=== PATIENT | female | born 1950 | race Two or more races ===

== ENCOUNTER 2017-12-13 15:05 | Emergency (ER) | payer OTHER ==
--- NOTE | 2017-12-13 15:14 | PDOC ---
Rapid Medical Evaluation Time Seen by Provider: 12/13/17 15:12 Medical Evaluation: Allergies Allergy/AdvReac Type Severity Reaction Status Date / Time codeine AdvReac Mild Vomiting Verified 06/30/16 15:41 I have performed a brief in-person evaluation of this patient. The patient presents with a chief complaint of: painful area to right arm. Patient is a diabetic. Daughter states she's had this abscess, which she states started with an insect bite, on and off for 1 year Pertinent physical exam findings: 0.5cm raised lesion to underside of right distal arm, not fluctuant without surrounding erythema/warmth/streaking. Area is very TTP. Not the appearance of a typical abscess I have ordered the following: basic labs The patient will proceed to the ED for further evaluation. Discharge Disposition - Diagnosis Painful skin lesion - Referrals - Patient Instructions - Post Discharge Activity
[2017-12-13 15:17] VITALS: BP 158/89; PULSE 109; TEMP 97.9; BMI 49.5
[2017-12-13] MEDS ORDERED: ACETAMINOPHEN 325 MG TABLET (FP) PO ONE (16:03)
[2017-12-13 16:06] LABS: BASO % 0.5 % (0-2.0); EOS % 7.1 % (0-4.5); HEMATOCRIT 37.4 % (32.4-45.2); HEMOGLOBIN 12.5 GM/dL (10.7-15.3); LYMPH % 20.1 % (8-40); MCH 26.1 pg (25.7-33.7); MCHC 33.4 g/dl (32.0-36.0); MEAN CELL VOLUME 78.1 fl (80-96); MEAN PLT VOLUME 7.5 fl (7.5-11.1); MONO % 5.2 % (3.8-10.2); NEUT % 67.1 % (42.8-82.8); PLATELET COUNT 287 K/MM3 (134-434); RBC 4.79 M/mm3 (3.60-5.2); WHITE BLOOD COUNT 11.8 K/mm3 (4.0-10.0)
[2017-12-13 16:39] LABS: ANION GAP 6 (8-16); BILIRUBIN,TOTAL 0.3 mg/dL (0.2-1.0); BLOOD UREA NITROGEN 15 mg/dL (7-18); CALCIUM 8.9 mg/dL (8.5-10.1); CHLORIDE 103 mmol/L (98-107); CO2 29 mmol/L (21-32); CREATININE 0.8 mg/dL (0.55-1.02); GLUCOSE,RANDOM 276 mg/dL (74-106); POTASSIUM 4.2 mmol/L (3.5-5.1); SGOT/AST 15 U/L (15-37); SGPT/ALT 15 U/L (12-78); SODIUM 138 mmol/L (136-145); TOT PROT 7.4 g/dl (6.4-8.2)
[2017-12-13 16:40] LABS: ALK PHOS 134 U/L (45-117)
--- NOTE | 2017-12-13 17:30 | PDOC ---
History of Present Illness - General Chief Complaint: Abscess Boil Stated Complaint: ABSCESS/ RT ARM PAIN Time Seen by Provider: 12/13/17 15:12 - History of Present Illness Initial Comments: 12/13/17 18:09 The patient is a 67 year old female with a history of HTN, HLD, DM, who presents for evaluation of right elbow pain. The patient reports a history of a sebaceous cyst that was worked up in 2012 with multiple US and CT scanning and eventually drainage. The patient states that the cyst has been growing over the past year with worsening pain over the past few days prompting her presentation to the ED for evaluation. The patient otherwise denies fevers, chills, SOB, chest pain, abdominal pain, nausea, vomiting, or changes with urination or bowel movements. Past History - Past Medical History Allergies/Adverse Reactions: Allergies Allergy/AdvReac Type Severity Reaction Status Date / Time codeine AdvReac Mild Vomiting Verified 12/13/17 15:12 Home Medications: Ambulatory Orders Alendronate Na [Fosamax (Weekly)] 70 mg PO Q7D #0 tablet 03/01/13 Acetaminophen [Tactinal] 500 mg PO Q6H 01/17/16 Bisoprolol/Hydrochlorothiazide [Bisoprolol-Hctz 10-6.25 mg Tab] 1 each PO DAILY 01/17/16 Fluticasone/Salmeterol [Advair 250-50 Diskus] 1 each IH DAILY 01/17/16 Glimepiride [Amaryl -] 4 mg PO DAILY@0700 01/17/16 Metformin HCl 750 mg PO DAILY 01/17/16 Insulin Glargine,Hum.rec.anlog [Edi Solwinnie] 30 unit SQ DAILY 06/30/16 Sitagliptin Phosphate [Januvia] 100 mg PO DAILY 06/30/16 Albuterol Sulfate 0.042% [Ventolin 0.042TRENGTH) -] 1 amp NEB Q3H PRN 12/13/17 Albuterol Sulfate Inhaler - [Ventolin Hfa Inhaler -] 1 - 2 inh PO Q4H PRN Esomeprazole Magnesium [Nexium 24Hr] 40 mg PO DAILY 12/13/17 Liraglutide [Victoza 3-Chaim] 1.8 mg SQ DAILY 12/13/17 Naproxen [Naprosyn -] 250 mg PO BID #14 tablet 12/13/17 Asthma: Yes COPD: Yes Diabetes: Yes GI Disorders: Yes (gerd) HTN: Yes Hypercholesterolemia: Yes Other medical history: op - Surgical History Abdominal Surgery: Yes (Hernia repair) Appendectomy: Yes Orthopedic Surgery: Yes (Back Sx) - Immunization History Td Vaccination: Yes - Suicide/Smoking/Psychosocial Hx Smoking Status: No Smoking History: Never smoked Years of Tobacco Use: 0 Have you smoked in the past 12 months: No Number of Cigarettes Smoked Daily: 0 Cigars Per Day: 0 Hx Alcohol Use: No Drug/Substance Use Hx: No Substance Use Type: None Hx Substance Use Treatment: No Review of Systems - Review of Systems Comments:: 12/13/17 18:13 Constitutional: No fevers, chills, fatigue, malaise HEENT: No Rhinorrhea, nasal congestion, visual changes Cardiovascular: No chest pain, syncope, palpitations, lightheadedness Respiratory: No Cough, SOB, Hemoptysis, Gastrointestinal: No Abdominal pain, Nausea, Vomiting, Constipation, Diarrhea, Melena Genitourinary: No Dysuria, Frequency, Urgency, Hesitancy, Hematuria, Flank pain Musculoskeletal: Right Elbow Cyst Pain. No Myalgia, arthralgia Skin: No rashes, itching, bruising, pallor Neurologic: No Headache, Dizziness, Numbness, Weakness, or Tingling Psychiatric: No Hallucinations. No SI or HI *Physical Exam - Vital Signs Last Vital Signs Temp Pulse Resp BP Pulse Ox 97.9 F 109 H 18 158/89 100 12/13/17 15:12 12/13/17 15:12 12/13/17 15:12 12/13/17 15:12 12/13/17 15:12 - Physical Exam Comments: 12/13/17 18:14 General Appearance: Nourished. No Apparent Distress HEENT: EOMI, YULIET. No Pharyngeal Erythema, Tonsillar Exudate, Tonsillar Erythema Neck: No Cervical Lymphadenopathy Respiratory/Chest: Lungs Clear, Normal Breath Sounds. No Crackles, Rales, Rhonchi, Wheezing Cardiovascular: Regular Rhythm, Regular Rate. No Murmur, Gallops, Rubs Gastrointestinal/Abdominal: Normal Bowel Sounds, Soft. No Guarding, Rebound, Tenderness Musculoskeletal: No CVA Tenderness Extremity: 1cm subaceous cyst tender to touch without fluctulance, erythema or warmth. Normal Capillary Refill Integumentary: Normal Color, Dry, Warm Neurologic: Fully Oriented, Alert, Normal Mood/Affect, Normal Response, ED Treatment Course - LABORATORY CBC & Chemistry Diagram: 12/13/17 16:00 12/13/17 16:00 - ADDITIONAL ORDERS Additional order review: Laboratory Results 12/13/17 16:00 Sodium 138 Potassium 4.2 Chloride 103 Carbon Dioxide 29 Anion Gap 6 L BUN 15 Creatinine 0.8 Creat Clearance w eGFR > 60 Random Glucose 276 H Calcium 8.9 Total Bilirubin 0.3 AST 15 ALT 15 Alkaline Phosphatase 134 H Total Protein 7.4 Albumin 3.0 L 12/13/17 16:00 RBC 4.79 MCV 78.1 L MCHC 33.4 RDW 15.0 MPV 7.5 Neutrophils % 67.1 Lymphocytes % 20.1 D Monocytes % 5.2 Eosinophils % 7.1 H Basophils % 0.5 - Medications Given in the ED: ED Medications Discontinued Medications Generic Name Dose Route Start Last Admin Trade Name Freq PRN Reason Stop Dose Admin Acetaminophen 650 mg 12/13/17 16:03 12/13/17 16:05 Tylenol - PO 12/13/17 16:04 650 mg ONCE ONE Administration Medical Decision Making - Medical Decision Making 12/13/17 18:15 The patient is a 67 year old female with a history of HTN, HLD, DM, who presents for evaluation of right elbow pain. Given the patient's symptoms, it is likely the patient's symptoms are due to a sebaceous cyst. It does not appear drainable here in the ED. The patient is clinically well otherwise. CBC , cmp obtained in triage demonstrated a small elevated wbc to 11 but was otherwise unremarkable. We will obtain an US and treat the patient's pain with tramadol. Likely discharge with dermatology follow up. We will continue to monitor and reassess. 12/13/17 19:18 US demonstrates a likely cyst in the patient's arm with no immediate management required at this time. We are comfortable discharging the patient home at this time with dermatology follow up for further management. We discussed the results, plan and return precautions with the patient who voiced understanding and is agreeable with the plan. *DC/Admit/Observation/Transfer Diagnosis at time of Disposition: Painful skin lesion, Sebaceous cyst - Discharge Dispostion Disposition: HOME Condition at time of disposition: Good Admit: No - Prescriptions Prescriptions: Naproxen [Naprosyn -] 250 mg PO BID #14 tablet - Referrals Referrals: Domitila Clark MD [Staff Physician] - Anthony Guevara [Staff Physician] - - Patient Instructions Printed Discharge Instructions: DI for Epidermal Cyst Additional Instructions: Please return to the ER if you experience any concerning or worsening symptoms including fevers chills, difficulty breathing or if you feel ill. Your lab results were normal here in the ER. It is likely your symptoms are due to a cyst in your arm. You will need to call to schedule a follow up appointment with one of our dermatologists Dr. Clark or Dr. Guevara within 1-2 days to discuss your ER visit and further management of your symptoms including possible removal. Por favor, regrese a la rafael de emergencias si experimenta alguna relacin o empeoramiento de los sntomas incluyendo fiebres escalofros, dificultad para respirar o si se siente enfermo. Los resultados de tu laboratorio fueron normales aqu en urgencias. Es probable que gabe sntomas se deban a un quiste en el brazo. Usted tendr que llamar para programar jimy hever de seguimiento con nguyễn de nuestros dermatlogos Dr. Clark o Dr. Guevara dentro de 1-2 lozano para discutir mathews visita de ER y la administracin adicional de gabe sntomas incluyendo la eliminacin posible. Print Language: MONTENEGRIN - Post Discharge Activity
[2017-12-13] MEDS ORDERED: traMADol HCL 50 MG TABLET PO ONE (17:59)
[2017-12-13] MEDS ORDERED: traMADol HCL 50 MG TABLET ONE (18:07)
--- NOTE | 2017-12-13 19:15 | PDOC ---
Attending Attestation - HPI HPI: 12/13/17 19:15 Pt is a 67 yo M with a PMHx of Asthma, COPD, DM, GERD, HTN, HLD who presents to the ED with R elbow cyst. Patient reports R arm sebaceous cyst that was drained in 2012 with full workup at [facility]. Patient reports cyst was not painful until a few weeks ago. Patient denies taking any pain medications and reports to the ED for removal of the cyst. Denies fevers, chills. Denies other sxs of CP, SOB, abd pain, N/V/D, LE edema, weakness, numbness. PCP: None - Physicial Exam PE: 12/13/17 19:15 GENERAL: Awake, alert, and fully oriented, in no acute distress HEAD: No signs of trauma EYES: PERRLA, EOMI, sclera anicteric, conjunctiva clear ENT: Auricles normal inspection, hearing grossly normal, nares patent, oropharynx clear without exudates. Moist mucosa NECK: Normal ROM, supple, no lymphadenopathy, JVD, or masses LUNGS: Breath sounds equal, clear to auscultation bilaterally. No wheezes, and no crackles HEART: Regular rate and rhythm, normal S1 and S2, no murmurs, rubs or gallops ABDOMEN: Soft, nontender, normoactive bowel sounds. No guarding, no rebound. No masses EXTREMITIES: Normal range of motion (including in R elbow), no edema. No clubbing or cyanosis. No cords, erythema, or tenderness. 2+ radial pulse BACK: No midline spinal tenderness in cervical/thoracic/lumbar region NEUROLOGICAL: Normal speech, cranial nerves intact, negative pronator drift, 5/ 5 strength in all 4 extremities, normal sensation to light touch in all 4 extremities, normal cerebellar exam, normal gait, normal reflexes and tone SKIN: R elbow with palpable subcutaneous 0.75cm soft mass with no overlying open wound, no erythema, no warmth or fluctuance.Otherwise, warm, Dry, normal turgor, no rashes or lesions noted. - Medical Decision Making 12/13/17 19:16 Documentation prepared by Stephany Silva, acting as medical coding instructor for Esmer Damon MD
== END 2017-12-13 19:22 | disposition home or self-care (01) ==
LOC: JER 15:05
DX: L72.3 Sebaceous cyst (principal); J45.909 Unspecified asthma, uncomplicated; J44.9 Chronic obstructive pulmonary disease, unspecified; I10 Essential (primary) hypertension; E11.9 Type 2 diabetes mellitus without complications; Z79.4 Long term (current) use of insulin; Z79.84 Long term (current) use of oral hypoglycemic drugs; E78.00 Pure hypercholesterolemia, unspecified; K21.9 Gastro-esophageal reflux disease without esophagitis
CPT/HCPCS: 36415; 76882; 80053; 85025; 99282-25

== ENCOUNTER 2017-12-18 02:11 | Emergency (ER) | payer OTHER ==
[2017-12-18 02:43] VITALS: BMI 50.3
--- NOTE | 2017-12-18 04:23 | PDOC ---
History of Present Illness - General Chief Complaint: Pain, Acute Stated Complaint: PAIN,RT ARM Time Seen by Provider: 12/18/17 04:23 - History of Present Illness Initial Comments: 67 year old female with history of GERD, HTN, severe obesity, and HLD presenting with acute on chronic right posterior arm pain. Patient presents with friend at bedside who is translating for her. States that she was bitten by a bug a few years prior and over since then has had a swollen subcutaneous nodule in her right posterior arm that occasionally incites a radiating pain um and down her arm that creates paresthesias as well. She ad multiple ultrasounds and evaluations for this pain in the pat, the most recent being 5 days prior in our ED by Dr. Damon and her resident during which laboratory and physical exam were unrevealing. Patient was told to schedule a dermatology follow up for definitive treatment but she was unable to reach the circuit rider. The pain acutely worsened today. She has not taken Tylenol, Motrin, or other pain medications. Denies any drainage from the site, fevers, chills, nausea, vomiting , constipation, diarrhea, or other symptoms. 12/18/17 04:38 12/18/17 20:17 Past History - Past Medical History Allergies/Adverse Reactions: Allergies Allergy/AdvReac Type Severity Reaction Status Date / Time codeine AdvReac Mild Vomiting Verified 12/18/17 02:30 Home Medications: Ambulatory Orders Alendronate Na [Fosamax (Weekly)] 70 mg PO Q7D #0 tablet 03/01/13 Acetaminophen [Tactinal] 500 mg PO Q6H 01/17/16 Bisoprolol/Hydrochlorothiazide [Bisoprolol-Hctz 10-6.25 mg Tab] 1 each PO DAILY 01/17/16 Fluticasone/Salmeterol [Advair 250-50 Diskus] 1 each IH DAILY 01/17/16 Glimepiride [Amaryl -] 4 mg PO DAILY@0700 01/17/16 Metformin HCl 750 mg PO DAILY 01/17/16 Insulin Glargine,Hum.rec.anlog [Edi Solostjitendra] 30 unit SQ DAILY 06/30/16 Sitagliptin Phosphate [Januvia] 100 mg PO DAILY 06/30/16 Albuterol Sulfate 0.042% [Ventolin 0.042TRENGTH) -] 1 amp NEB Q3H PRN 12/13/17 Albuterol Sulfate Inhaler - [Ventolin Hfa Inhaler -] 1 - 2 inh PO Q4H PRN Esomeprazole Magnesium [Nexium 24Hr] 40 mg PO DAILY 12/13/17 Liraglutide [Victoza 3-Chaim] 1.8 mg SQ DAILY 12/13/17 Naproxen [Naprosyn -] 250 mg PO BID #14 tablet 12/13/17 Asthma: Yes COPD: Yes Diabetes: Yes GI Disorders: Yes (GERD) HTN: Yes Hypercholesterolemia: Yes - Surgical History Abdominal Surgery: Yes (Hernia repair) Appendectomy: Yes Orthopedic Surgery: Yes (Back Sx) - Immunization History Td Vaccination: Yes - Suicide/Smoking/Psychosocial Hx Smoking Status: No Smoking History: Never smoked Years of Tobacco Use: 0 Have you smoked in the past 12 months: No Number of Cigarettes Smoked Daily: 0 Cigars Per Day: 0 Information on smoking cessation initiated: No Hx Alcohol Use: No Drug/Substance Use Hx: No Substance Use Type: None Hx Substance Use Treatment: No Review of Systems - Review of Systems Constitutional: No: Chills, Diaphoresis, Fever HEENTM: No: Eye Pain, Blurred Vision Respiratory: No: Cough, Orthopnea, Shortness of Breath, Wheezing Cardiac (ROS): No: Chest Pain, Edema, Irregular Heart Rate, Lightheadedness, Palpitations ABD/GI: No: Diarrhea, Nausea, Vomiting : No: Dysuria, Discharge, Frequency Musculoskeletal: Yes: Muscle Pain. No: Joint Pain, Joint Swelling Integumentary: Yes: Lesions, Lumps. No: Pruritus, Rash Neurological: No: Headache, Numbness, Paresthesia *Physical Exam - Vital Signs Last Vital Signs Temp Pulse Resp BP Pulse Ox 98.3 F 101 H 18 148/52 96 12/18/17 02:40 12/18/17 02:40 12/18/17 02:40 12/18/17 02:40 12/18/17 02:40 - Physical Exam General Appearance: Yes: Nourished, Appropriately Dressed. No: Apparent Distress HEENT: positive: EOMI, YULIET, Normal ENT Inspection, Normal Voice Neck: positive: Trachea midline, Normal Thyroid, Supple. negative: Tender, Rigid Respiratory/Chest: positive: Lungs Clear, Normal Breath Sounds. negative: Chest Tender, Respiratory Distress, Accessory Muscle Use Cardiovascular: positive: Regular Rhythm, Regular Rate Gastrointestinal/Abdominal: positive: Normal Bowel Sounds, Flat, Soft. negative : Tender Lymphatic: negative: Adenopathy, Tenderness Musculoskeletal: negative: Normal Inspection (1cm subcutaneous cyst at the posterior aspect of the arm superior to the ulnar process. She complains of pain in that area if you touch her anywere on her posterior arm or forearm), CVA Tenderness, Decreased Range of Motion Extremity: positive: Normal Capillary Refill, Normal Range of Motion, Tender ( per above). negative: Normal Inspection Integumentary: positive: Dry, Warm. negative: Normal Color (slightly erythematous area of concern per above but not indurated or infectious in appearance) Neurologic: positive: Fully Oriented, Alert, Normal Mood/Affect, Normal Response , Motor Strength 12/18 ED Treatment Course - LABORATORY CBC & Chemistry Diagram: 12/18/17 06:00 12/18/17 06:00 Medical Decision Making - Medical Decision Making Pain better with Tylenol 975 but will draw labs, perform XRs of right elbow and humerus to rule out occult bone malignancy or electrolyte derangement.patient signed out to Dr. Rodriguez in stable condition pending film and lab results. 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 12/18/17 20:23 *DC/Admit/Observation/Transfer Diagnosis at time of Disposition: Sebaceous cyst - Discharge Dispostion Disposition: HOME Condition at time of disposition: Stable - Referrals Referrals: Anthony Guevara MD [Primary Care Provider] - Micheal Moreno MD [Staff Physician] - 2 Days (D/W Zohaib from ED in [facility] on 12/18/17. R elbow sebaceous cyst. Previously attempted drainage in 2012, now reaccumulated. For walk in Wednesday12/20/2017 between 12noon and 2pm for drainage ) - Patient Instructions Printed Discharge Instructions: DI for Epidermal Cyst Additional Instructions: You were seen for swelling around your R elbow. We ran tests that showed you do not have an infection at the site. You have a cyst that should be drained Please follow up with Dr Moreno's office (orthopedic surgeon) on Wednesday12/20/17 at 12noon for drainage Continue to take pain medications (tylenol and motrin) to manage the pain Please follow up with your primary doctor in one week If you have worsening symptoms please return to the emergency room Print Language: MAORI - Post Discharge Activity
[2017-12-18] MEDS ORDERED: ACETAMINOPHEN 500 MG TABLET (FP) PO ONE (04:39)
[2017-12-18] MEDS ORDERED: ACETAMINOPHEN 325 MG TABLET (FP) ONE (05:01)
[2017-12-18 06:12] LABS: BASO % 0.8 % (0-2.0); EOS % 7.5 % (0-4.5); HEMATOCRIT 39.5 % (32.4-45.2); HEMOGLOBIN 12.9 GM/dL (10.7-15.3); LYMPH % 27.8 % (8-40); MCH 25.7 pg (25.7-33.7); MCHC 32.5 g/dl (32.0-36.0); MEAN CELL VOLUME 78.9 fl (80-96); MEAN PLT VOLUME 7.2 fl (7.5-11.1); MONO % 6.5 % (3.8-10.2); NEUT % 57.4 % (42.8-82.8); PLATELET COUNT 297 K/MM3 (134-434); RBC 5.01 M/mm3 (3.60-5.2); RDW 15.1 % (11.6-15.6); WHITE BLOOD COUNT 10.4 K/mm3 (4.0-10.0)
--- NOTE | 2017-12-18 06:25 | PDOC ---
Attending Attestation - Resident Resident Name: MosheFranciscoalessandrosalvador - ED Attending Attestation I have performed the following: I have examined & evaluated the patient, The case was reviewed & discussed with the resident, I agree w/resident's findings & plan - HPI HPI: 12/18/17 06:22 Pt comes with right upper arm and elbow pain. She attributes it all to a cyst on her medial aspect of her distal humerus. Pt had a spider bite there 1 year ago. SHe states that when she moves her arm it is extremely painful. Afebrile VSS. Pt has multiple comorbidities. - Physicial Exam PE: 12/18/17 06:24 Agree with resident exam - Medical Decision Making 12/18/17 06:24 Labs pending. XR elbow and humerus pending Suggest surg consult in the AM. <Mireya Mccoy - Last Filed: 12/18/17 06:21> Heart Score/ECG Review - ECG Intrepretation Comment:: 12/18/17 07:00 Completed @2:39:42 normal sinus rhythm Possible left atrial enlargemtn borderline ECG Vent. Rate 99 bpm NJ interval 142 ms QRS duration 72 ms <Rudy Guillen - Last Filed: 12/18/17 07:00>
[2017-12-18 06:44] LABS: ALBUMIN 3.1 g/dl (3.4-5.0); ALK PHOS 130 U/L (45-117); ANION GAP 4 (8-16); BILIRUBIN,TOTAL 0.3 mg/dL (0.2-1.0); BLOOD UREA NITROGEN 17 mg/dL (7-18); CALCIUM 8.3 mg/dL (8.5-10.1); CHLORIDE 105 mmol/L (98-107); CO2 29 mmol/L (21-32); CREATININE 0.7 mg/dL (0.55-1.02); GLUCOSE,RANDOM 186 mg/dL (74-106); POTASSIUM 4.5 mmol/L (3.5-5.1); SGOT/AST 13 U/L (15-37); SGPT/ALT 16 U/L (12-78); SODIUM 138 mmol/L (136-145); TOT PROT 7.5 g/dl (6.4-8.2)
--- NOTE | 2017-12-18 07:35 | PDOC ---
*Physical Exam - Vital Signs Last Vital Signs Temp Pulse Resp BP Pulse Ox 98.0 F 91 H 14 137/61 99 12/18/17 06:55 12/18/17 06:55 12/18/17 06:55 12/18/17 06:55 12/18/17 06:55 - Physical Exam Comments: 12/18/17 07:33 gen: awake R arm - elbow with cystic structure to medial elbow with ttp, no warmth, no drainage, no induration, no erytema, FROM of elbow ED Treatment Course - LABORATORY CBC & Chemistry Diagram: 12/18/17 06:00 12/18/17 06:00 - ADDITIONAL ORDERS Additional order review: Laboratory Results 12/18/17 12/18/17 06:00 06:00 Sodium 138 Potassium 4.5 Chloride 105 Carbon Dioxide 29 Anion Gap 4 L BUN 17 Creatinine 0.7 Creat Clearance w eGFR > 60 Random Glucose 186 H Lactic Acid 1.4 Calcium 8.3 L Total Bilirubin 0.3 AST 13 L ALT 16 Alkaline Phosphatase 130 H Total Protein 7.5 Albumin 3.1 L 12/18/17 06:00 RBC 5.01 MCV 78.9 L MCHC 32.5 RDW 15.1 MPV 7.2 L Neutrophils % 57.4 Lymphocytes % 27.8 D Monocytes % 6.5 Eosinophils % 7.5 H Basophils % 0.8 - Medications Given in the ED: ED Medications Discontinued Medications Generic Name Dose Route Start Last Admin Trade Name Freq PRN Reason Stop Dose Admin Acetaminophen 1,000 mg 12/18/17 04:39 12/18/17 05:23 Tylenol - PO 12/18/17 04:40 1,000 mg ONCE ONE Administration Medical Decision Making - Medical Decision Making 12/18/17 08:57 a/p: 67yo female with R arm pain at the elbow -prior hx of sebaceous cyst present to the R elbow - seen by Dr. Moreno in the past -had aspiration of the cyst in 2012. -no cellulitis, no induration or fluctuance -no signs of infection to the site -will obtain doppler and ultrasound to ensure no change in size of the cyst -resident discussed case with Dr. José who recommends ortho eval -resident discussed case with PA covering Dr. Moreno who recommends coming to the office wednesday for further eval. arrive in the office at 12p on [place] -resident discussed this plan with the patient -labs reviewed -stable for d/c to home -tylenol or motrin for pain *DC/Admit/Observation/Transfer Diagnosis at time of Disposition: Sebaceous cyst - Discharge Dispostion Disposition: HOME Condition at time of disposition: Stable Admit: No - Referrals Referrals: Anthony Guevara MD [Primary Care Provider] - Micheal Moreno MD [Staff Physician] - 2 Days (D/W Zohaib from ED in [facility] on 12/18/17. R elbow sebaceous cyst. Previously attempted drainage in 2012, now reaccumulated. For walk in Wednesday12/20/2017 between 12noon and 2pm for drainage ) - Patient Instructions Additional Instructions: You were seen for swelling around your R elbow. We ran tests that showed you do not have an infection at the site. You have a cyst that should be drained Please follow up with Dr Moreno's office (orthopedic surgeon) on Wednesday12/20/17 at 12noon for drainage Continue to take pain medications (tylenol and motrin) to manage the pain Please follow up with your primary doctor in one week If you have worsening symptoms please return to the emergency room Print Language: QATARI - Post Discharge Activity - Attestations Physician Attestion: 12/18/17 09:00 I, Dr. Karlee Rogers, DO, attest that this document has been prepared under my direction and personally reviewed by me in its entirety. I further attest, that it accurately reflects all work, treatment, procedures and medical decision -making performed by me.
--- NOTE | 2017-12-18 07:35 | PDOC ---
*Physical Exam - Vital Signs Last Vital Signs Temp Pulse Resp BP Pulse Ox 98.0 F 91 H 14 137/61 99 12/18/17 06:55 12/18/17 06:55 12/18/17 06:55 12/18/17 06:55 12/18/17 06:55 12/18/17 07:27 Patient signed out to me by Dr Mesa. Xrays of the humerus and elbow do not show any acute pathology, no osteomyelitis or other bone infiltration. US done a year ago shows a cyst. Pain has been on for 3 days preventing her from sleeping. Swelling for 2 months , pt had sebaceous cyst drained at same location in 2012 by an ED doctor. She never followed up as an outpatient for excision. Plan is to consult surgery and discuss cyst excison as an out patient. Call was put to Dr José. He does not think it is a general surgery problem as it is close to a joint and is not an abscess. Patient was seen by the PA for Dr Moreno in the past. An attempt was made to drain the cyst in the past but it was unsuccessful Plan is to do a duplex US of R arm to compare the cyst with the previously documented cyst measurements. A call was put to Dr Moreno and Dr Kearney will be consulted Toradol will be given 12/18/17 07:43 12/18/17 07:51 Spoke with Zohaib the PA for Dr Moreno. He says it can be handled as an outpatient since there is no evidence of sepsis. Patient can come into the office on Wednesday between 12 and 2pm without an appointment and will be seen. 12/18/17 07:56 ED Treatment Course - LABORATORY CBC & Chemistry Diagram: 12/18/17 06:00 12/18/17 06:00 - ADDITIONAL ORDERS Additional order review: Laboratory Results 12/18/17 12/18/17 06:00 06:00 Sodium 138 Potassium 4.5 Chloride 105 Carbon Dioxide 29 Anion Gap 4 L BUN 17 Creatinine 0.7 Creat Clearance w eGFR > 60 Random Glucose 186 H Lactic Acid 1.4 Calcium 8.3 L Total Bilirubin 0.3 AST 13 L ALT 16 Alkaline Phosphatase 130 H Total Protein 7.5 Albumin 3.1 L 12/18/17 06:00 RBC 5.01 MCV 78.9 L MCHC 32.5 RDW 15.1 MPV 7.2 L Neutrophils % 57.4 Lymphocytes % 27.8 D Monocytes % 6.5 Eosinophils % 7.5 H Basophils % 0.8 - Medications Given in the ED: ED Medications Discontinued Medications Generic Name Dose Route Start Last Admin Trade Name Severiano PRN Reason Stop Dose Admin Acetaminophen 1,000 mg 12/18/17 04:39 12/18/17 05:23 Tylenol - PO 12/18/17 04:40 1,000 mg ONCE ONE Administration Medical Decision Making - Medical Decision Making 12/18/17 08:22 Plan is to control pain. Following US, will discharge for outpatient follow up with Dr Moreno on Wednesday. 12/18/17 08:36 Pending US read US- no DVT, no change in subcutaneous hypoechoic mass since 12/13/17 12/18/17 08:57 Pending cardiac profile for discharge 12/18/17 09:01 Negative trops For discharge 12/18/17 09:17 *DC/Admit/Observation/Transfer Diagnosis at time of Disposition: Sebaceous cyst - Discharge Dispostion Disposition: HOME Condition at time of disposition: Stable Admit: No - Referrals Referrals: Anthony Guevara MD [Primary Care Provider] - Micheal Moreno MD [Staff Physician] - 2 Days (D/W Zohaib from ED in [facility] on 12/18/17. R elbow sebaceous cyst. Previously attempted drainage in 2012, now reaccumulated. For walk in Wednesday12/20/2017 between 12noon and 2pm for drainage ) - Patient Instructions Additional Instructions: You were seen for swelling around your R elbow. We ran tests that showed you do not have an infection at the site. You have a cyst that should be drained Please follow up with Dr Moreno's office (orthopedic surgeon) on Wednesday12/20/17 at 12noon for drainage Continue to take pain medications (tylenol and motrin) to manage the pain Please follow up with your primary doctor in one week If you have worsening symptoms please return to the emergency room Print Language: MALAYSIAN - Post Discharge Activity - Attestations Physician Attestion: 12/18/17 08:36 Lenora Rodriguez MD
[2017-12-18] MEDS ORDERED: KETOROLAC TROMETHAMINE 30 MG/1 ML VIAL IVPUSH ONE (07:47)
[2017-12-18] MEDS ORDERED: KETOROLAC TROMETHAMINE 60 MG/2 ML VIAL IM ONE (07:49)
[2017-12-18] MEDS ORDERED: KETOROLAC TROMETHAMINE 60 MG/2 ML VIAL ONE (08:06)
[2017-12-18 09:18] LABS: ERYTHROCYTE SEDIMENTATION RATE 65 mm/hr (0-30)
[2017-12-18 09:48] VITALS: BP 143/75; PULSE 68; TEMP 98.1
--- NOTE | 2017-12-22 13:58 | EKG ---
Test Reason : Blood Pressure : / mmHG Vent. Rate : 099 BPM Atrial Rate : 099 BPM P-R Int : 142 ms QRS Dur : 072 ms QT Int : 342 ms P-R-T Axes : 063 043 063 degrees QTc Int : 438 ms POOR DATA QUALITY, INTERPRETATION MAY BE ADVERSELY AFFECTED NORMAL SINUS RHYTHM POSSIBLE LEFT ATRIAL ENLARGEMENT BORDERLINE ECG WHEN COMPARED WITH ECG OF 30-JUN-2016 16:23, NO SIGNIFICANT CHANGE WAS FOUND Confirmed by VIKAS NUÑEZ, ROMAN ([id number]) on 12/22/2017 1:58:24 PM Referred By: Confirmed By:ROMAN BEAN MD
== END 2017-12-18 09:46 | disposition home or self-care (01) ==
LOC: JER 02:11
PROC: 3E0233Z Introduction of Anti-inflammatory into Muscle, Percutaneous Approach (ICD-10-PCS; principal; 2017-12-18)
DX: L72.3 Sebaceous cyst (principal); I10 Essential (primary) hypertension; E11.9 Type 2 diabetes mellitus without complications; Z79.4 Long term (current) use of insulin; Z79.84 Long term (current) use of oral hypoglycemic drugs; E78.5 Hyperlipidemia, unspecified; K21.9 Gastro-esophageal reflux disease without esophagitis; J45.909 Unspecified asthma, uncomplicated
CPT/HCPCS: 36415; 73060-TC-RT-FY; 73070-TC-RT-FY; 80053; 82550; 83605; 84484; 85025; 85651; 86140; 93005; 93010; 93971; 96372; 99283-25

== ENCOUNTER 2017-12-20 11:57 | Emergency (ER) | payer OTHER ==
[2017-12-20 12:19] VITALS: TEMP 98.5; BMI 49.4
--- NOTE | 2017-12-20 12:42 | PDOC ---
History of Present Illness - General Chief Complaint: Wound Stated Complaint: ABSCESS BOIL (RT ARM) Time Seen by Provider: 12/20/17 12:42 - History of Present Illness Initial Comments: 12/20/17 12:42 Ms. Castellanos is a 67 yo female w/ pmh of GERD, HTN, HLD, DM who presents complaining of right posterior upper extremity pain just proximal to her elbow. She has previously had a cyst at this site which was aspirated in 2012 following a bug bite. She was evaluated 7 days and 2 days ago for this same problem and presented today to orthopedics where she has previously been evaluated by naina for drainage/removal however was told to present here as her insurance was not covered through their office. Ms. Castellanos also reports she has recently had chills at night. The patient denies chest pain, shortness of breath, headache and dizziness. Denies fever, nausea, vomit, diarrhea and constipation. Denies dysuria, frequency, urgency and hematuria. Allergies: codeine Past History - Past Medical History Allergies/Adverse Reactions: Allergies Allergy/AdvReac Type Severity Reaction Status Date / Time codeine AdvReac Mild Vomiting Verified 12/20/17 12:15 Home Medications: Ambulatory Orders Bisoprolol/Hydrochlorothiazide [Bisoprolol-Hctz 10-6.25 mg Tab] 1 each PO DAILY 12/20/17 Esomeprazole Magnesium 40 mg PO DAILY 12/20/17 Glimepiride 4 mg PO DAILY 12/20/17 Metformin HCl [Metformin HCl ER] 750 mg PO DAILY 12/20/17 Rosuvastatin [Crestor -] 20 mg PO DAILY 12/20/17 Sitagliptin Phosphate [Januvia] 100 mg PO DAILY 12/20/17 Asthma: Yes COPD: Yes Diabetes: Yes GI Disorders: Yes (GERD) HTN: Yes Hypercholesterolemia: Yes - Surgical History Abdominal Surgery: Yes (Hernia repair) Appendectomy: Yes Orthopedic Surgery: Yes (Back Sx) - Immunization History Td Vaccination: Yes - Suicide/Smoking/Psychosocial Hx Smoking Status: No Smoking History: Never smoked Years of Tobacco Use: 0 Have you smoked in the past 12 months: No Number of Cigarettes Smoked Daily: 0 Cigars Per Day: 0 Information on smoking cessation initiated: No Hx Alcohol Use: No Drug/Substance Use Hx: No Substance Use Type: None Hx Substance Use Treatment: No Review of Systems - Review of Systems Comments:: 12/20/17 12:42 GENERAL/CONSTITUTIONAL: No fever or chills. No weakness. HEAD, EYES, EARS, NOSE AND THROAT: No change in vision. No ear pain or discharge. No sore throat. CARDIOVASCULAR: No chest pain or shortness of breath RESPIRATORY: No cough, wheezing, or hemoptysis. GASTROINTESTINAL: No nausea, vomiting, diarrhea or constipation. GENITOURINARY: No dysuria, frequency, or change in urination. MUSCULOSKELETAL: +Cyst with pain as described. SKIN: No rash NEUROLOGIC: No headache, vertigo, loss of consciousness, or change in strength/ sensation. ENDOCRINE: No increased thirst. No abnormal weight change HEMATOLOGIC/LYMPHATIC: No anemia, easy bleeding, or history of blood clots. ALLERGIC/IMMUNOLOGIC: No hives or skin allergy. 12/20/17 12:57 *Physical Exam - Vital Signs Last Vital Signs Temp Pulse Resp BP Pulse Ox 98.5 F 100 H 95 H 126/90 95 12/20/17 12:15 12/20/17 12:15 12/20/17 12:15 12/20/17 12:15 12/20/17 12:15 - Physical Exam Comments: 12/20/17 12:42 GENERAL: Awake, alert, and fully oriented, in no acute distress HEAD: No signs of trauma, normocephalic, atraumatic EYES: PERRLA, EOMI, sclera anicteric, conjunctiva clear ENT: Auricles normal inspection, hearing grossly normal, nares patent, oropharynx clear without exudates. Moist mucosa NECK: Normal ROM, supple, no lymphadenopathy, JVD, or masses LUNGS: No distress, speaks full sentences, clear to auscultation bilaterally HEART: Regular rate and rhythm, normal S1 and S2, no murmurs, rubs or gallops, peripheral pulses normal and equal bilaterally. ABDOMEN: Soft, nontender, normoactive bowel sounds. No guarding, no rebound. No masses EXTREMITIES: +Right cystic structure approx. 1cm in diameter noted to right posterior upper arm just proximal to elbow. NEUROLOGICAL: Cranial nerves II through XII grossly intact. Normal speech, normal gait, no focal sensorimotor deficits SKIN: Warm, Dry, normal turgor, no rashes or lesions noted. Medical Decision Making - Medical Decision Making 12/20/17 14:29 Ms. Castellanos is a 67 yo female w/ pmh as described who presents for evaluation of right arm mass concerning for epidermal inclusion cyst after scheduled appointment today not available due to insurance reasons. Gen surg contacted for consultation and to bedside. 12/20/17 16:41 General Surgery to bedside and removed cyst and sent to pathology. Discharging with instructions per surgery. Patient verbalized understanding and will follow- up in clinic next week. *DC/Admit/Observation/Transfer Diagnosis at time of Disposition: Sebaceous cyst - Discharge Dispostion Disposition: HOME Condition at time of disposition: Good - Referrals Referrals: Claus Pressley MD [Staff Physician] - 12/29/17 ON STAFF,NOT [Primary Care Provider] - - Patient Instructions Additional Instructions: Postoperative instructions: You had excision of a right medial arm subcutaneous mass on 12/20/[address] Claus Pressley of [facility]. Activity: Resume your usual activities gradually, but no heavy exertion or lifting with your right arm for a week or two. Remove dressings in 2 days. You may shower daily starting then, just pat the incision dry. No bath or swimming until skin incision is fully healed. Apply a small amount of Bacitracin ointment to the stitches twice daily including after your shower. Stitches may be covered with a band-aid, but it is ok to leave them open as well. Pain: For pain, you may use and alternate Tylenol (acetaminophen) and/or ibuprofen every 6 hours each as needed. Do not take more than 4000mg of acetaminophen in a day. You may also use Naproxen once or twice a day as needed instead of ibuprofen, but not in addition to it. Take medications as prescribed or indicated on the labeling. Follow-up: Call Dr. Pressley's office at [phone] to make your postop appointment (WednesdayDecember 29 as advised). Clinic is held in the [facility] on the first floor of [facility]. Call the office if you have: * increasing pain not responsive to pain medication * fever of 101F or higher * vomiting * unusual or increasing bleeding or drainage from wound * increasing redness or swelling at wound site Also, see your primary medical doctor within 1-2 weeks. - Post Discharge Activity
--- NOTE | 2017-12-20 13:03 | PDOC ---
Attending Attestation - HPI HPI: 12/20/17 13:08 The patient is a 67 year old female with a significant PMH of asthma, COPD, diabetes, HTN, hyperlipidemia, and GERD who presents to the emergency department with RUE pain beginning approximately 1 week ago. She reports she has had a sebaceous cyst by her right elbow which has been evaluated and drained in the past. She states she went to Dr. Puri office who has seen her in the past for evaluation but was informed they do not take her insurance. Allergies; Codeine PCP: Not on Staff. <Zeeshan Arndt - Last Filed: 12/20/17 13:08> - Resident Resident Name: John Hurt - ED Attending Attestation I have performed the following: I have examined & evaluated the patient, The case was reviewed & discussed with the resident, I agree w/resident's findings & plan, Exceptions are as noted - Physicial Exam PE: GENERAL: Awake, alert, and fully oriented, in no acute distress HEAD: No signs of trauma EYES: PERRLA, EOMI, sclera anicteric, conjunctiva clear ENT: Auricles normal inspection, hearing grossly normal, nares patent, oropharynx clear without exudates. Moist mucosa NECK: Normal ROM, supple, no lymphadenopathy, JVD, or masses LUNGS: Breath sounds equal, clear to auscultation bilaterally. No wheezes, and no crackles HEART: Regular rate and rhythm, normal S1 and S2, no murmurs, rubs or gallops ABDOMEN: Soft, nontender, normoactive bowel sounds. No guarding, no rebound. No masses EXTREMITIES: Normal range of motion, no edema. No clubbing or cyanosis. No cords, erythema, or tenderness NEUROLOGICAL: Cranial nerves II through XII grossly intact. Normal speech, normal gait SKIN: Warm, Dry, normal turgor, no rashes. +Small raised tender lesion to R upper arm, posterior surface. +Induration. No fluctuance or redness. - Medical Decision Making Called multiple orthopedic groups, could not obtain appointment (either due to long waits or they do not accept her insurance). We discussed with Dr. Pressley, who evaluated in ED and resected the lesion. <Jaz Bender - Last Filed: 12/20/17 17:35>
[2017-12-20] MEDS ORDERED: LIDOCAINE 1%/EPI 1:100000 (20 ML MULTI DOSE VIAL) ONE (14:53)
--- NOTE | 2017-12-20 16:32 | CONSULT ---
Consult Consult Specialty:: General Surgery Referred by:: Dr. John Hurt Reason for Consultation:: right arm medial nodule above elbow - History of Present Illness Chief Complaint: painful mass at medial distal right upper arm History of Present Illness: 67yo obese [place] F with HTN, HLD, DM2, asthma/COPD, GERD, has had small skin nodule at right distal medial upper arm just above the inside of the elbow for about 5 years, possibly initially after an insect bite. It has been drained and aspirated in the past, last time was about a year ago. She was going to have it removed in [place], but decided to come [place] the [place] instead. This is her third visit to the ER for pain associated with this site in a week. She was referred to dermatology but could not reach them, then to orthopedics for drainage today. She went to the orthopedic office, but was told they could not take her insurance, and sent to the ED. She complains of intermittent shooting numbness and tingling up her arm from this site, and pain and tenderness at the nodule. She has not had F/C, N/V, drainage or redness at the site. She would like it removed. Surgery was asked to evaluate for excision. In the ER last week, she had labs done, and glucose was somewhat elevated. New labs were not done today. She has had US and duplex of that arm showing a small cystic mass but no DVT. XR show no acute findings. - History Source History Provided By: Patient, Medical Record Limitations to Obtaining History: Language Barrier (Bulgarian - interpretation facilitated by Deepak Bender RN at bedside) - Past Medical History Cardio/Vascular: Yes: HTN, Hyperlipdemia Pulmonary: Yes: Asthma, COPD (pt denies) Gastrointestinal: Yes: GERD Reproductive: Yes: Postmenopausal Endocrine: Yes: Diabetes Mellitus - Past Surgical History Past Surgical History: Yes: Appendectomy, Hernia Repair (abdominal) Additional Surgical History: back/spine surgery - Alcohol/Substance Use Hx Alcohol Use: No History of Substance Use: reports: None - Smoking History Smoking history: Never smoked Have you smoked in the past 12 months: No Aproximately how many cigarettes per day: 0 - Social History ADL: Independent Home Medications - Allergies Allergies/Adverse Reactions: Allergies Allergy/AdvReac Type Severity Reaction Status Date / Time codeine AdvReac Mild Vomiting Verified 12/20/17 12:15 - Home Medications Home Medications: Ambulatory Orders Bisoprolol/Hydrochlorothiazide [Bisoprolol-Hctz 10-6.25 mg Tab] 1 each PO DAILY 12/20/17 Esomeprazole Magnesium 40 mg PO DAILY 12/20/17 Glimepiride 4 mg PO DAILY 12/20/17 Metformin HCl [Metformin HCl ER] 750 mg PO DAILY 12/20/17 Rosuvastatin [Crestor -] 20 mg PO DAILY 12/20/17 Sitagliptin Phosphate [Januvia] 100 mg PO DAILY 12/20/17 Family Disease History - Family Disease History Family History: Unremarkable (noncontributory) Review of Systems Unable to obtain ROS, reason: limited/Bulgarian - Review of Systems Constitutional: denies: Chills, Fever Cardiovascular: denies: Chest Pain, Shortness of Breath Respiratory: denies: Cough, SOB Gastrointestinal: denies: Abdominal Pain, Nausea, Vomiting Musculoskeletal: reports: Back Pain, Extremity Pain (right arm with hpi) Integumentary: reports: Lump (right arm with hpi). denies: Rash Neurological: reports: Numbness (radiating up from right elbow occasionally), Parasthesia (radiating up from right elbow occasionally). denies: Dizziness, Headache Physical Exam Vital Signs: Vital Signs Temperature 98.5 F 12/20/17 12:15 Pulse Rate 100 H 12/20/17 12:15 Respiratory Rate 95 H 12/20/17 12:15 Blood Pressure 126/90 12/20/17 12:15 O2 Sat by Pulse Oximetry (%) 95 12/20/17 12:15 Constitutional: Yes: No Distress, Calm, Obese Eyes: Yes: Conjunctiva Clear, EOM Intact HENT: Yes: Atraumatic, Normocephalic Neck: Yes: Supple, Trachea Midline Cardiovascular: Yes: Regular Rate and Rhythm. No: Murmur Respiratory: Yes: Regular, CTA Bilaterally Gastrointestinal: Yes: Soft, Abdomen, Obese. No: Tenderness ...Rectal Exam: Yes: Deferred Renal/: No: CVA Tenderness - Left, CVA Tenderness - Right Musculoskeletal: No: Joint Stiffness, Joint Swelling Extremities: No: Cool, Cyanosis, Erythema Edema: No Integumentary: Yes: Other (small raised firm subcutaneous nodule at right medial distal upper arm, just above elbow, slightly hyperpigmented, but no erythema, induration, warmth, s/s infection, drainage, or punctum - tender at nodule and in surrounding area, also with some pain on elbow flexion and extension). No: Erythema, Jaundice, Rash Neurological: Yes: Alert, Oriented, Other (right hand and elbow ROM intact, normal use of right hand (can write)) Psychiatric: Yes: Alert, Oriented Labs: wbc 10.4 two days ago, down from 11.8 12/13/17 fingerstick not done today afebrile Imaging - Results Ultrasound: Report Reviewed, Image Reviewed (images reviewed from 12/13/17 - small subcutaneous fluid-filled cystic structure present) Problem List - Problems (1) Localized swelling, mass and lump, right upper limb Assessment/Plan: right distal medial arm nodule, most likely subcutaneous cyst Discussed with patient risks, benefits and alternatives of excision of right medial arm subcutaneous mass, including but not limited to bleeding and infection; alternatives include no surgery - risks of this include growth of the mass, increased pain, possible infection. Patient is agreeable to procedure under local anesthesia. Informed consent signed for same. Performed in ER - see separate procedure note. Specimen sent to pathology. Pt to use tylenol and ibuprofen or naproxen as needed for pain. To call for appt to f/u next Wed in clinic. Instructions in d/c plan. ER to give tylenol prior to d/c home for when local wears off. Thank you for the opportunity to participate in the care of this patient. Code(s): R22.31 - LOCALIZED SWELLING, MASS AND LUMP, RIGHT UPPER LIMB (2) Cyst of skin and subcutaneous tissue Assessment/Plan: presumed cyst at right medial distal upper arm Code(s): L72.0 - EPIDERMAL CYST (3) Diabetes mellitus type 2 in obese Code(s): E11.69 - TYPE 2 DIABETES MELLITUS WITH OTHER SPECIFIED COMPLICATION; E66.9 - OBESITY, UNSPECIFIED (4) Hypertension Code(s): I10 - ESSENTIAL (PRIMARY) HYPERTENSION Qualifiers: Hypertension type: essential hypertension Qualified Code(s): I10 - Essential (primary) hypertension
[2017-12-20] MEDS ORDERED: ACETAMINOPHEN 500 MG TABLET (FP) PO ONE (16:40)
[2017-12-20] MEDS ORDERED: ACETAMINOPHEN 325 MG TABLET (FP) ONE (16:50)
--- NOTE | 2017-12-20 16:57 | PROC ---
Procedure Note Procedure: Preop Dx: right medial arm subcutaneous mass Postop Dx: right medial arm subcutaneous cyst Procedure: excision of right medial arm subcutaneous mass (~1cm) Surgeon: Claus Pressley Anesthesia: 10ml 1% lidocaine + epinephrine Specimen: right medial arm mass to pathology Findings: small hard subcutaneous nodule consistent with cyst, fully excised with overlying skin ellipse ~1cm x 0.5cm Disposition: for d/c home from ER Site was prepped with Chloraprep and draped sterilely. Local anesthetic infiltrated around and under mass. Elliptical incision oriented longitudinally made with scalpel and cyst removed en bloc with overlying skin from underlying fat. Minimal bleeding controlled with local pressure. 3-0 vicryl dermal buried sutures placed to approximate wound edges. Skin closed with 4 3-0 nylon mattress sutures. Bacitracin ointment applied to incision. Covered with gauze, bandaid and tape. Specimen sent to pathology in formalin.
[2017-12-20 17:10] VITALS: BP 139/89; PULSE 89
--- NOTE | 2017-12-24 13:56 | PATH ---
Surgical Pathology Report Patient Name: RADHA GROVER [facility]. Rec. #: [id number] /Age/Gender: 1950 (Age: 67) / F Account: [id number] Location: EMERGENCY ROOM Taken: 12/20/2017 Received: 12/21/2017 Reported: 12/24/2017 Physicians: Bryant Byrnes Specimen(s) Received MASS OF RIGHT MEDIAL ARM SUBCUTANEOUS Clinical History Right medial arm subcutaneous mass Final Diagnosis ARM, RIGHT, MEDIAL, SUBCUTANEOUS MASS, EXCISION: LEIOMYOMA, SEE COMMENT. Comment: Immunohistochemical stains performed at [place], [place] ([id number]) and interpreted at [facility] show the neoplasm is positive for SMA, while negative for S100 and factor XIII A, supporting the above diagnosis. Electronically Signed Mallory Putnam M.D. Gross Description Received in formalin labeled "right medial arm mass," is a 2.0 x 0.8 cm [place], elliptical, unoriented portion of skin excised to a depth of 0.5 cm. The epidermal surface is unremarkable. Sectioning reveals an intact, firm mass, possibly consistent with a cyst. Platen Builder Up sections of the mass are submitted in one cassette. /12/21/2017 saudi12/21/2017
== END 2017-12-20 16:55 | disposition home or self-care (01) ==
LOC: JER 11:57
PROC: 0JBD3ZZ Excision of Right Upper Arm Subcutaneous Tissue and Fascia, Percutaneous Approach (ICD-10-PCS; principal; 2017-12-20)
DX: L72.0 Epidermal cyst (principal); I10 Essential (primary) hypertension; E11.69 Type 2 diabetes mellitus with other specified complication; Z79.84 Long term (current) use of oral hypoglycemic drugs; K21.9 Gastro-esophageal reflux disease without esophagitis; J44.9 Chronic obstructive pulmonary disease, unspecified; E66.9 Obesity, unspecified; Z68.42 Body mass index [BMI] 45.0-49.9, adult
CPT/HCPCS: 11401; 88305-TC; 99283-25

== ENCOUNTER 2019-06-15 09:09 | Inpatient (IN) | payer OTHER ==
--- NOTE | 2019-06-15 09:49 | PDOC ---
History of Present Illness - General Chief Complaint: Blurry Vision Stated Complaint: EYE PROBLEM History Source: Patient Exam Limitations: No Limitations - History of Present Illness Initial Comments: 06/15/19 11:03 69 yo F with a hx of HTN, HLD, DM, and migraines (last exacerbation "many years ago") presents to the emergency department with sudden left sided headache with left sided eye pressure and vision loss at approximately 1 am. Per the patient, the pain awoke her from sleep. The patient describes the pain as "the worst headache of her life" with radiation to the left eye and left side of the neck. She denies trauma. Denies a hx of rheumatological disease. Denies the following : fevers, chills, SOB, chest pain, nausea, vomiting, dysuria, hematuria, diarrhea, hematochezia, leg pain/swelling. Meds: lisinopril 40 mg qday, furosemide 20 mg qday, metformin 750 mg qday, hydralazine 50 mg TID, tizanadine 4 mg qday. Allergies: Codeine Social: Denies tobacco, alcohol, and substance abuse Shx: discectomy. Past History - Past Medical History Allergies/Adverse Reactions: Allergies Allergy/AdvReac Type Severity Reaction Status Date / Time codeine AdvReac Mild Vomiting Verified 06/15/19 09:58 Home Medications: Ambulatory Orders Furosemide 20 mg PO DAILY 06/15/19 Hydralazine HCl 50 mg PO TID 06/15/19 Lisinopril [Prinivil -] 40 mg PO DAILY 06/15/19 Tizanidine HCl 4 mg PO PRN 06/15/19 metFORMIN HCL [Metformin HCl ER] 750 mg PO DAILY 06/15/19 Asthma: Yes COPD: Yes Diabetes: Yes GI Disorders: Yes (GERD) HTN: Yes Hypercholesterolemia: Yes - Surgical History Abdominal Surgery: Yes (Hernia repair) Appendectomy: Yes Orthopedic Surgery: Yes (Back Sx) - Immunization History Td Vaccination: Yes - Psycho Social/Smoking Cessation Hx Smoking Status: No Smoking History: Never smoked Years of Tobacco Use: 0 Have you smoked in the past 12 months: No Number of Cigarettes Smoked Daily: 0 Cigars Per Day: 0 Information on smoking cessation initiated: No Hx Alcohol Use: No Drug/Substance Use Hx: No Substance Use Type: None Hx Substance Use Treatment: No *Physical Exam - Vital Signs Last Vital Signs Temp Pulse Resp BP Pulse Ox 98.7 F 109 H 16 205/95 H 93 L 06/15/19 09:21 06/15/19 09:21 06/15/19 09:21 06/15/19 09:21 06/15/19 09:21 ED Treatment Course - LABORATORY CBC & Chemistry Diagram: 06/15/19 10:10 06/15/19 10:10 Medical Decision Making - Medical Decision Making 06/15/19 14:[address] Rodriguez. Per Dr. Rodriguez, there is a high suspicion for temporal arteritis. Patient needs high dose solu-medrol with 60 mg per day after initial bolus. Requests Dr. Cornelius for temporal artery biopsy. Consult order placed to Dr. Cornelius and Dr. Rodriguez. A call was placed to Dr. Cornelius and awaiting call back. Spoke to Dr. Simon. Per Dr. Simon, he is unable to do the full eye exam within [facility] but will examine the patient tomorrow morning. 06/15/19 14:24 Discharge - Discharge Information Problems reviewed: Yes - Follow up/Referral - Patient Discharge Instructions - Post Discharge Activity
[2019-06-15] MEDS ORDERED: ACETAMINOPHEN 1000 MG/100 ML VIAL (NON FORMULARY) IVPB ONE (09:59)
[2019-06-15] MEDS ORDERED: METOCLOPRAMIDE HCL INJECTION 10 MG/2 ML VIAL IVPB ONE (09:59)
[2019-06-15] MEDS ORDERED: ACETAMINOPHEN INJECTION 100 ML IVPB ONE (10:19)
[2019-06-15] MEDS ORDERED: METOCLOPRAMIDE HCL INJECTION 10 MG/2 ML VIAL ONE (10:19)
[2019-06-15 10:26] LABS: BASO % 0.6 % (0-2.0); EOS % 5.7 % (0-4.5); HEMATOCRIT 37.5 % (32.4-45.2); LYMPH % 15.6 % (8-40); MCH 25.3 pg (25.7-33.7); MCHC 31.9 g/dl (32.0-36.0); MEAN CELL VOLUME 79.3 fl (80-96); MEAN PLT VOLUME 7.6 fl (7.5-11.1); MONO % 5.5 % (3.8-10.2); NEUT % 72.6 % (42.8-82.8); PLATELET COUNT 299 K/MM3 (134-434); RBC 4.73 M/mm3 (3.60-5.2); RDW 14.3 % (11.6-15.6); WHITE BLOOD COUNT 11.8 K/mm3 (4.0-10.0)
[2019-06-15 10:53] LABS: ALBUMIN 3.3 g/dl (3.4-5.0); BILIRUBIN,TOTAL 0.6 mg/dL (0.2-1); BLOOD UREA NITROGEN 9.7 mg/dL (7-18); CALCIUM 9.3 mg/dL (8.5-10.1); CREATININE 0.8 mg/dL (0.55-1.3); TOT PROT 7.6 g/dl (6.4-8.2)
[2019-06-15] MEDS ORDERED: SODIUM CHLORIDE 1,000 ML IV STA (10:57)
--- NOTE | 2019-06-15 11:03 | PDOC ---
Attending Attestation - Resident Resident Name: Daryl Cole - ED Attending Attestation I have performed the following: I have examined & evaluated the patient, The case was reviewed & discussed with the resident, I agree w/resident's findings & plan, Exceptions are as noted - HPI HPI: 06/15/19 10:58 69 F with h/o GERD, HTN, HLD, DM presenting to ED with headache. Pt states that she awoke this morning with 10/10 L sided headache radiating from her L mandaeism into her L eye. Pt denies N/V. Denies thunderclap. However, she states this headache is different from her usual headaches. Pt also notes that she feels like her vision in the L eye is blurred. Denies vision loss. Pt denies weakness/ numbness in any extremity. No facial droops/slurred speech. Denies CP/SOB. - Physicial Exam PE: 06/15/19 11:02 "GENERAL: Awake, alert, and fully oriented, in no acute distress. HEAD: + L temporal tenderness, No signs of trauma EYES: PERRLA, EOMI, sclera anicteric, conjunctiva clear ENT: Auricles normal inspection, hearing grossly normal, nares patent, oropharynx clear without exudates. Moist mucosa NECK: Nontender, no stepoffs, Normal ROM, supple, no lymphadenopathy, JVD, or masses LUNGS: Breath sounds equal, clear to auscultation bilaterally. No wheezes, and no crackles HEART: Regular rate and rhythm, normal S1 and S2, no murmurs, rubs or gallops ABDOMEN: Soft, nontender, normoactive bowel sounds. No guarding, no rebound. No masses EXTREMITIES: Normal range of motion, no edema. No clubbing or cyanosis. No cords, erythema, or tenderness NEUROLOGICAL: Cranial nerves II through XII intact. 5/5 strength and sensation in all extremities, Normal speech, normal gait, normal cerebellar function SKIN: Warm, Dry, normal turgor, no rashes or lesions noted. - Medical Decision Making 06/15/19 11:02 69 F with 10/[address] head unremarkable. SAH not entirely excluded but unable to perform LP due to prior lumbar hernia surgery. Possible GCA given L eye vision change and L temporal tenderness. Pt with no other neuro deficits on exam. - Labs - Pain control - Rheum/ophtho consult 06/15/19 12:48 Labs with elevated ESR, CRP still pending Discussed with Dr. Rodriguez, who agrees with possible GCA. Will initiate IV steroids given vision disturbance.
[2019-06-15 11:23] LABS: POTASSIUM 4.6 mmol/L (3.5-5.1)
[2019-06-15] MEDS ORDERED: methylPREDNISolone NA SUCC 125 MG/2 ML VIAL IVPUSH ONE ×2 (12:44→12:47)
[2019-06-15] MEDS ORDERED: methylPREDNISolone NA SUCC 125 MG/2 ML VIAL IVPB ONE (12:57)
--- NOTE | 2019-06-15 14:58 | CONSULT ---
- Consultation REQUESTING PROVIDER: CONSULT REQUEST: We have been asked to surgically evaluate this patient for NIEVES & blurry vision. PCP: Mary Patel MD HPI: Called to pearl 69 yo F with PMHx as noted below. Presents to [facility] with acute onset of LEFT sided NIEVES with associated LEFT eye "pressure" and blurry vision in the same eye. Wears glasses. Started around 1 AM this morning. Per medical charting, patient described pain as "worst NIEVES of her life". A head CT ( non-con) was performed and no intracranial pathology was identified. Patient's ESR 60. Started on Methylprednisone. Currently, patient resting in position of comfort. States the overhead lights bother her. Feels a little better since coming to ER for further evaluation and initiation of steroids and pain management. Current working diagnosis of GCA. Denies n/v/f/c, CP, palpitations, SOB, CRESPO. Denies rheumatological disease. Denies . Denies focal weakness, paresthesias, dizziness/lightheadedness, unsteady gait, seizure or mental status changes. PMHx: HTN, HLD, DM, and migraines, Asthma, COPD, DM, GERD, Chronic musculoskeletal pain, OA, Osteoporosis, Morbid obesity PSHx: ABD hernia repair, Appendectomy, Back/discectomy, Sebaceous Cyst excised ( RUE) Home Meds Furosemide 20 mg PO DAILY 06/15/19 Hydralazine HCl 50 mg PO TID 06/15/19 Lisinopril [Prinivil -] 40 mg PO DAILY 06/15/19 Tizanidine HCl 4 mg PO PRN 06/15/19 metFORMIN HCL [Metformin HCl ER] 750 mg PO DAILY 06/15/19 Allergies: Codeine (mild/vomiting) ROS: CONSTITUTIONAL: Absent: diaphoresis, generalized weakness, malaise, loss of appetite, weight change CARDIOVASCULAR: Absent: syncope, irregular heart rate, peripheral edema RESPIRATORY: Absent: cough, wheezing, stridor, hemoptysis GASTROINTESTINAL:Absent: abdominal pain, abdominal distension, melena, hematochezia GENITOURINARY: Absent: dysuria, frequency, urgency, hesitancy, hematuria, flank pain, genital pain MUSCULOSKELETAL: Absent: myalgia, arthralgia, joint swelling, neck pain SKIN: Absent: rash, itching, pallor HEMATOLOGIC/IMMUNOLOGIC: Absent: easy bleeding, easy bruising, lymphadenopathy NEUROLOGIC: Absent: see hpi PSYCHIATRIC: Absent: anxiety, depression, suicidal or homicidal ideation, hallucinations. PE: GENERAL: Awake, alert, and fully oriented, in no acute distress. HEAD: Normal with no signs of trauma. Left temporal TTP EYES: PERRL, sclera anicteric, conjunctiva clear. NECK: Normal ROM, supple without lymphadenopathy, JVD, or masses. MUSCULOSKELETAL: Normal ROM at all joints. No bony deformities or tenderness. No CVA tenderness. UE: 2+ pulses, warm, well-perfused. No cyanosis. Cap refill <2 seconds. No peripheral edema. LE: 2+ pulses, warm, well-perfused. No calf tenderness. No peripheral edema. NEUROLOGICAL: Normal speech, gait not observed. GMNVI in all extremities. PSYCH: Cooperative. Good eye contact. Appropriate mood and affect. SKIN: Warm, dry, normal turgor, no rashes or lesions noted. Last Vital Signs Temp Pulse Resp BP Pulse Ox 98.2 F 92 H 22 H 160/85 97 06/15/19 13:50 06/15/19 13:50 06/15/19 13:50 06/15/19 13:50 06/15/19 13:50 CBC, BMP 06/15/19 10:10 06/15/19 10:10 Laboratory Tests 06/15/19 06/15/19 10:10 10:10 ESR 61 H C-Reactive Protein Pending Problem List - Problems (1) Headache Assessment/Plan: 69 yo female admitted with acute onset NIEVES with pressure behind left eye causing blurry vision in her left eye. Patient's left temporal region is TTP. Because of this coupled with elevated ESR and no neuro deficits on exam, our current working diagnosis is GCA. Recommend the followin. Cont steroids 2. Rheumatology Consult 3. NPO after midnight 4. IVF 5. GI PPX 6. DVT PPX 7. f/u CRP 8. Tight glycemic control 9. BP management 10. Medical optimization / clearance 11. Scheduled for LEFT temporal artery biopsy 06/16/19 Code(s): R51 - HEADACHE (2) Blurry vision, left eye Code(s): H53.8 - OTHER VISUAL DISTURBANCES (3) Morbid obesity with BMI of 45.0-49.9, adult Assessment/Plan: Due to her BMI, recommended patient f/u with Dr. Hodgson regarding discussion about Bariatric Surgery as out-patient Code(s): E66.01 - MORBID (SEVERE) OBESITY DUE TO EXCESS CALORIES; Z68.42 - BODY MASS INDEX (BMI) 45.0-49.9, ADULT (4) HTN (hypertension) Code(s): I10 - ESSENTIAL (PRIMARY) HYPERTENSION (5) Diabetes mellitus Code(s): E11.9 - TYPE 2 DIABETES MELLITUS WITHOUT COMPLICATIONS Visit type - Case Type Case Type: ED Admission - Emergency Emergency Visit: Yes ED Registration Date: 06/15/19 Care time: The patient presented to the Emergency Department on the above date and was hospitalized for further evaluation of their emergent condition. - New patient This patient is new to me today: Yes Date on this admission: 06/15/19
--- NOTE | 2019-06-15 15:26 | HP ---
CHIEF COMPLAINT: sudden left sided headache, left eye p ressure and vision loss PCP: Dr. Xochilt Cornelius HISTORY OF PRESENT ILLNESS: Patient is a 69 year old female with a significant past medical history of hypertension, diabetes mellitus II, hyperlipidemia, migranes and chronic lower ext neuropathy/pain (s/p steriod injections on Wednesday). Patient presents to the ED today with complaints of sudden left sided headache accompained by left eye pressure with vision loss that started today at 1a.m. The headache woke her up from her sleep. She states she has intermittent migranes but this headache is the worse that she has ever experienced. She denies trauma or history of seizure, TIAs. She denies any speech slurring. Denies a hx of rheumatological disease. Denies fevers, chills, shortness of breath, chest pain or vomiting. Of note patient has lower extremity pain at baseline and gets steriod injections on bilateral ankles. She ambuates with a RW at baseline and reports no falls or traumas. On exam, patient is comfortable at rest but overhead lights bother her. She is feeling better after steriod injection in the ED. ER course was notable for: (1) negative head ct (2) esr 61 (3) wbc 11.8 (4) Started on Methylprednisone 500mg in ED Recent Travel: has not travelled recently PAST MEDICAL HISTORY: hypertension, diabetes mellitus II, hyperlipidemia, migranes and chronic lower ext neuropathy/pain (s/p steriod injections on Wednesday). Social History: Smoking: denies Alcohol: denies Drugs: denies Allergies codeine Adverse Reaction (Mild, Verified 06/15/19 09:58) Vomiting As stated by pt. HOME MEDICATIONS: Home Medications Medication Instructions Recorded Furosemide 20 mg PO DAILY 06/15/19 Hydralazine HCl 50 mg PO TID 06/15/19 Lisinopril [Prinivil -] 40 mg PO DAILY 06/15/19 Tizanidine HCl 4 mg PO PRN 06/15/19 metFORMIN HCL [Metformin HCl ER] 750 mg PO DAILY 06/15/19 PHYSICAL EXAMINATION Vital Signs - 24 hr 06/15/19 06/15/19 06/15/19 09:21 09:45 10:50 Temperature 98.7 F Pulse Rate 109 H Pulse Rate [ 105 H 99 H Radial] Respiratory 16 22 H 20 Rate Blood Pressure 205/95 H Blood Pressure 153/94 145/70 [Left Arm] O2 Sat by Pulse 93 L 97 98 Oximetry (%) 06/15/19 06/15/19 06/15/19 11:50 12:50 13:50 Temperature 98.2 F Pulse Rate Pulse Rate [ 90 94 H 92 H Radial] Respiratory 22 H 20 22 H Rate Blood Pressure Blood Pressure 144/69 138/65 160/85 [Left Arm] O2 Sat by Pulse 96 96 97 Oximetry (%) GENERAL: Awake, alert, and fully oriented, in no acute distress. HEAD: Normal with no signs of trauma. - wears glasses, left temporal tenderness EYES: Pupils equal, round and reactive to light, but unable to tolerate eye exam 2/2 to pain. EARS, NOSE, THROAT: Ears normal, nares patent, oropharynx clear without exudates. Moist mucous membranes. NECK: Normal range of motion, supple without lymphadenopathy, JVD, or masses. LUNGS: Breath sounds diminished, tolerating room air HEART: Regular rate and rhythm, normal S1 and S2 without murmur, rub or gallop. ABDOMEN: obese abdomen, no pain on palpation MUSCULOSKELETAL: Normal range of motion at all joints. No bony deformities or tenderness. No CVA tenderness. UPPER EXTREMITIES: No peripheral edema. LOWER EXTREMITIES: No peripheral edema. NEUROLOGICAL: Normal speech. ambulates with RW PSYCHIATRIC: Cooperative. Good eye contact. Appropriate mood and affect. Laboratory Results - last 24 hr 06/15/19 06/15/19 06/15/19 10:10 10:10 10:10 WBC 11.8 H RBC 4.73 Hgb 12.0 Hct 37.5 MCV 79.3 L MCH 25.3 L MCHC 31.9 L RDW 14.3 Plt Count 299 MPV 7.6 Absolute Neuts (auto) 8.6 H Neutrophils % 72.6 D Lymphocytes % 15.6 D Monocytes % 5.5 Eosinophils % 5.7 H Basophils % 0.6 Nucleated RBC % 0 ESR 61 H Sodium 139 Potassium 4.6 Chloride 104 Carbon Dioxide 28 Anion Gap 7 L BUN 9.7 Creatinine 0.8 Est GFR (CKD-EPI)AfAm 88.42 Est GFR (CKD-EPI)NonAf 76.29 Random Glucose 173 H Calcium 9.3 Total Bilirubin 0.6 AST 18 ALT 13 Alkaline Phosphatase 98 Total Protein 7.6 Albumin 3.3 L ASSESSMENT/PLAN: Family Medical History Family History: Denies Problem List - Problem (1) Headache Assessment/Plan: Patient with history of migraines who presents with sudden left sided headache accompanied by left eye pressure with vision loss that started today at 1a.m. Head Ct negative for acute process. Start on Fiorcet for pain relief. Given high dose steriods in the ED, will start on daily solumedrol 60day with Protonix coverage. for arterial biopsy in a.m. Neurology consulted Rheumatology consulted Code(s): R51 - HEADACHE (2) Blurry vision, left eye Assessment/Plan: left blurred vision accompanied with headache Code(s): H53.8 - OTHER VISUAL DISTURBANCES (3) Diabetes mellitus Assessment/Plan: start on novolog SS, and levemir monitor bgms ac/hs Code(s): E11.9 - TYPE 2 DIABETES MELLITUS WITHOUT COMPLICATIONS (4) HTN (hypertension) Assessment/Plan: continue home meds Code(s): I10 - ESSENTIAL (PRIMARY) HYPERTENSION (5) Morbid obesity with BMI of 45.0-49.9, adult Code(s): E66.01 - MORBID (SEVERE) OBESITY DUE TO EXCESS CALORIES; Z68.42 - BODY MASS INDEX (BMI) 45.0-49.9, ADULT (6) Prophylactic measure Code(s): Z29.9 - ENCOUNTER FOR PROPHYLACTIC MEASURES, UNSPECIFIED Visit type - Emergency Visit Emergency Visit: Yes ED Registration Date: 06/15/19 Care time: The patient presented to the Emergency Department on the above date and was hospitalized for further evaluation of their emergent condition. - New Patient This patient is new to me today: Yes Date on this admission: 06/20/19 - Critical Care Critical Care patient: No
[2019-06-15] MEDS ORDERED: INSULIN (NOVOLOG) ASPART 100 UNITS/ML 10ML VIAL SQ ONE (17:42)
[2019-06-15] MEDS: PANTOPRAZOLE 40 MG TABLET (FP) PO SCH (17:43)
[2019-06-15 18:01] VITALS: BMI 45.1
--- NOTE | 2019-06-15 18:28 | CONSULT ---
Consult Consult Specialty:: Rheumatology - History of Present Illness History of Present Illness: 69 yo F with a hx of HTN, HLD, DM, morbid obesity and glaucoma admitted with new onset headache and change in vision. HPI. The patient reports she has a 3 day history of mild pain in reto-orbital and parietal regions. Today at 1 am she woke up with ilateral amaurosis and severe pain in the right temporal region and right side of the neck. She reports that after 30 minutes the vision improved and after 2 hours the headache improved. At the present time she has discomfort with the light and has mild to moderate tenderness in both temporal regions, mainly in the left. On admission laboratory work-up revealed a CBC with a WBC of 11.8, Hgb 12, HCT 37.5 and platelets 299. ESR 61. Glucose 173, creatiine 0.[address] of the head reported as normal. - History Source History Provided By: Patient, Medical Record - Past Medical History Cardio/Vascular: Yes: HTN, Hyperlipdemia Pulmonary: Yes: Asthma, COPD (pt denies) Gastrointestinal: Yes: GERD Endocrine: Yes: Diabetes Mellitus - Past Surgical History Past Surgical History: Yes: Appendectomy, Hernia Repair (abdominal) - Alcohol/Substance Use Hx Alcohol Use: No History of Substance Use: reports: None - Smoking History Smoking history: Never smoked Have you smoked in the past 12 months: No Aproximately how many cigarettes per day: 0 - Social History ADL: Independent Home Medications - Allergies Allergies/Adverse Reactions: Allergies Allergy/AdvReac Type Severity Reaction Status Date / Time codeine AdvReac Mild Vomiting Verified 06/15/19 09:58 - Home Medications Home Medications: Ambulatory Orders Furosemide 20 mg PO DAILY 06/15/19 Hydralazine HCl 50 mg PO TID 06/15/19 Lisinopril [Prinivil -] 40 mg PO DAILY 06/15/19 Tizanidine HCl 4 mg PO PRN 06/15/19 metFORMIN HCL [Metformin HCl ER] 750 mg PO DAILY 06/15/19 Review of Systems - Review of Systems Constitutional: reports: Malaise Eyes: reports: Other (See HI) HENT: reports: Other (See HPI) Neck: reports: Pain on Movement Cardiovascular: reports: No Symptoms Respiratory: reports: No Symptoms Gastrointestinal: reports: No Symptoms Musculoskeletal: reports: No Symptoms Neurological: reports: No Symptoms Physical Exam Vital Signs: Vital Signs Temperature 97.7 F 06/15/19 17:49 Pulse Rate 88 06/15/19 17:49 Respiratory Rate 18 06/15/19 17:49 Blood Pressure 163/85 06/15/19 17:49 O2 Sat by Pulse Oximetry (%) 94 L 06/15/19 17:49 Constitutional: Yes: No Distress Eyes: Yes: WNL HENT: Yes: Other (Mild tenderness in the right temporal region. Temporal aretries normal in pulsation and consistency.) Neck: Yes: WNL Cardiovascular: Yes: WNL Respiratory: Yes: WNL Gastrointestinal: Yes: WNL Musculoskeletal: Yes: Other (No active joints.) Labs: CBC, BMP 06/15/19 10:10 06/15/19 10:10 Laboratory Tests 06/15/19 06/15/19 10:10 10:10 ESR 61 H Calcium 9.3 Total Bilirubin 0.6 AST 18 ALT 13 Alkaline Phosphatase 98 Total Protein 7.6 Albumin 3.3 L Problem List - Problems (1) Giant cell arteritis Assessment/Plan: Rule out temporal arteritis. Plan: Consult to Dr. Cornelius was placed, for temporal artery biopsy (Left side). Consult to Dr. Simon pending Patient received 1 garcia of Solumedrol 500 mg IV. D/C Solumedrol. Continue with Prednisone 60 mg BID (1 mg/Kg/d) Code(s): M31.6 - OTHER GIANT CELL ARTERITIS
[2019-06-15 20:08] LABS: EPI CELLS 1.5 /HPF (0-5/HPF); HYALINE CASTS 0 /lpf (0-8); URINE APPEARANCE CLEAR; URINE BILIRUBIN NEGATIVE (NEGATIVE); URINE COLOR YELLOW; URINE GLUCOSE (UA) 1+ (NEGATIVE); URINE KETONE TRACE (NEGATIVE); URINE LEUK ESTERASE NEGATIVE (NEGATIVE); URINE NITRITE NEGATIVE (NEGATIVE); URINE PROTEIN 3+ (NEGATIVE); URINE RBC 1 /hpf (0-4); URINE UROBILINOGEN 0.2 mg/dL (0.2-1.0); URINE WBC 1 /hpf (0-5)
[2019-06-15] MEDS: hydrALAZINE HCL 50 MG TABLET (FP) PO SCH (21:43)
[2019-06-15] MEDS: INSULIN SLIDING SCALE (NOVOLOG) 1 VIAL SQ SCH (21:46)
[2019-06-15] MEDS ORDERED: INSULIN SLIDING SCALE (NOVOLOG) 1 VIAL SQ SCH (22:00)
[2019-06-15] MEDS ORDERED: INSULIN (LEVEMIR) 100 UNITS/ML UNITS SQ SCH (22:00)
[2019-06-15] MEDS ORDERED: ARTIFICIAL TEARS (POLYVINYL ALCOHOL) OPTH DROPS OU PRN (23:48)
[2019-06-15] MEDS ORDERED: ACETAMINOPHEN 325 MG TABLET (FP) PO ONE (23:48)
[2019-06-16] MEDS: hydrALAZINE HCL 50 MG TABLET (FP) PO SCH ×4 (06:11→21:41)
[2019-06-16] MEDS: INSULIN SLIDING SCALE (NOVOLOG) 1 VIAL SQ SCH ×4 (06:12→21:41)
[2019-06-16] MEDS ORDERED: predniSONE 20 MG TABLET (UD) PO SCH (08:00)
[2019-06-16 08:15] LABS: BASO % 0.2 % (0-2.0); HEMATOCRIT 36.3 % (32.4-45.2); HEMOGLOBIN 12.4 GM/dL (10.7-15.3); MCH 27.3 pg (25.7-33.7); MCHC 34.2 g/dl (32.0-36.0); MEAN CELL VOLUME 79.8 fl (80-96); MEAN PLT VOLUME 8.4 fl (7.5-11.1); MONO % 2.5 % (3.8-10.2); NEUT % 84.3 % (42.8-82.8); PLATELET COUNT 310 K/MM3 (134-434); RBC 4.55 M/mm3 (3.60-5.2); RDW 14.4 % (11.6-15.6)
[2019-06-16 08:52] LABS: ALBUMIN 2.9 g/dl (3.4-5.0); BILIRUBIN,TOTAL 0.4 mg/dL (0.2-1); BLOOD UREA NITROGEN 14.1 mg/dL (7-18); CALCIUM 8.2 mg/dL (8.5-10.1); CREATININE 0.9 mg/dL (0.55-1.3); MAGNESIUM 1.8 mg/dL (1.8-2.4); POTASSIUM 4.2 mmol/L (3.5-5.1); TOT PROT 7.3 g/dl (6.4-8.2)
[2019-06-16] MEDS ORDERED: ACETAMINOPHEN/CAFFEINE/BUTALBITAL 1 TAB PO PRN (08:59)
--- NOTE | 2019-06-16 09:05 | CONSULT ---
Consult - text type - Consultation Consultation Note: Neurology CHIEF COMPLAINT: sudden left sided headache, left eye p ressure and vision loss PCP: Dr. Xochilt Cornelius HISTORY OF PRESENT ILLNESS: 69 year old female with a significant past medical history of hypertension, diabetes mellitus II, hyperlipidemia, migranes and chronic lower ext neuropathy/ pain (s/p steriod injections on Wednesday). Patient presents to the ED with complaints of sudden left sided headache accompained by left eye pressure with vision loss that started at 1a.m. the mmorning of admission. The headache woke her up from her sleep. She states she has intermittent migranes but this headache is the worse that she has ever experienced. She denies trauma or history of seizure, TIAs. She denies any speech slurring. Denies a hx of rheumatological disease. Denies fevers, chills, shortness of breath, chest pain or vomiting. Of note patient has lower extremity pain at baseline and gets steriod injections on bilateral ankles. She ambuates with a RW at baseline and reports no falls or traumas. although noncontrast CT of the head did not show any significant structural abnormalities, her ESR was elevated 61. This certainly raises the suspicion for possible giant cell arteritis and rheumatology was consulted. Temporal artery biopsy being considered and vascular specialist, Dr. Cornelius, tto be consulted for evaluation. The patient was started on IV steroidswhich I'm in agreement with and does find some improvement this morning. Additionally, I will add Fioricet to her regimen which should also help with migraine symptoms. Recent Travel: has not travelled recently PAST MEDICAL HISTORY: hypertension, diabetes mellitus II, hyperlipidemia, migranes and chronic lower ext neuropathy/pain (s/p steriod injections on Wednesday). Social History: Smoking: denies Alcohol: denies Drugs: denies Family History: HTN Allergies codeine Adverse Reaction (Mild, Verified 06/15/19 09:58) Vomiting As stated by pt. HOME MEDICATIONS: Home Medications Medication Instructions Recorded Furosemide 20 mg PO DAILY 06/15/19 Hydralazine HCl 50 mg PO TID 06/15/19 Lisinopril [Prinivil -] 40 mg PO DAILY 06/15/19 Tizanidine HCl 4 mg PO PRN 06/15/19 metFORMIN HCL [Metformin HCl ER] 750 mg PO DAILY 06/15/19 PHYSICAL EXAMINATION Vital Signs Period Temp Pulse Resp BP Sys/Wells Pulse Ox Last 24 Hr 97.7 F-98.8 F 88-112 16-22 138-205/65-96 92-98 GENERAL: Awake, alert, and fully oriented, in no acute distress. HEAD: Normal with no signs of trauma. - wears glasses, left temporal tenderness EYES: Pupils equal, round and reactive to light, but unable to tolerate eye exam 2/2 to pain. EARS, NOSE, THROAT: Ears normal, nares patent, oropharynx clear without exudates. Moist mucous membranes. NECK: Normal range of motion, supple without lymphadenopathy, JVD, or masses. LUNGS: Breath sounds diminished, tolerating room air HEART: Regular rate and rhythm, normal S1 and S2 without murmur, rub or gallop. ABDOMEN: obese abdomen, no pain on palpation MUSCULOSKELETAL: Normal range of motion at all joints. No bony deformities or tenderness. No CVA tenderness. UPPER EXTREMITIES: No peripheral edema. LOWER EXTREMITIES: No peripheral edema. NEUROLOGICAL: Normal speech. Temporal tenderness on palpation, sensory intact, moves all extremities equally, finger-nose normal PSYCHIATRIC: Cooperative. Good eye contact. Appropriate mood and affect. Laboratory Results - last 24 hr 06/15/19 06/15/19 06/15/19 10:10 10:10 10:10 WBC 11.8 H RBC 4.73 Hgb 12.0 Hct 37.5 MCV 79.3 L MCH 25.3 L MCHC 31.9 L RDW 14.3 Plt Count 299 MPV 7.6 Absolute Neuts (auto) 8.6 H Neutrophils % 72.6 D Lymphocytes % 15.6 D Monocytes % 5.5 Eosinophils % 5.7 H Basophils % 0.6 Nucleated RBC % 0 ESR 61 H Sodium 139 Potassium 4.6 Chloride 104 Carbon Dioxide 28 Anion Gap 7 L BUN 9.7 Creatinine 0.8 Est GFR (CKD-EPI)AfAm 88.42 Est GFR (CKD-EPI)NonAf 76.29 Random Glucose 173 H Calcium 9.3 Total Bilirubin 0.6 AST 18 ALT 13 Alkaline Phosphatase 98 Total Protein 7.6 Albumin 3.3 L ASSESSMENT/PLAN: 69 year old female with a significant past medical history of hypertension, diabetes mellitus II, hyperlipidemia, migranes and chronic lower ext neuropathy/ pain (s/p steriod injections on Wednesday). Patient presents to the ED with complaints of sudden left sided headache accompained by left eye pressure with vision loss that started at 1a.m. the mmorning of admission. The headache woke her up from her sleep. She states she has intermittent migranes but this headache is the worse that she has ever experienced. She denies trauma or history of seizure, TIAs. She denies any speech slurring. Denies a hx of rheumatological disease. Denies fevers, chills, shortness of breath, chest pain or vomiting. Of note patient has lower extremity pain at baseline and gets steriod injections on bilateral ankles. She ambuates with a RW at baseline and reports no falls or traumas. although noncontrast CT of the head did not show any significant structural abnormalities, her ESR was elevated 61. This certainly raises the suspicion for possible giant cell arteritis and rheumatology was consulted. Temporal artery biopsy being considered and vascular specialist, Dr. Cornelius, tto be consulted for evaluation. The patient was started on IV steroidswhich I'm in agreement with and does find some improvement this morning. Additionally, I will add Fioricet to her regimen which should also help with migraine symptoms. Continue medical management and optimization, rheumatology follow-up. would not be opposed to temporal artery biopsy if needed.,, Defer to vascular specialist. Monitor blood pressure, maintain normotensive range. Diet modifications, weight loss may also be of benefit. Cognitive rest, headache prevention.
[2019-06-16 09:06] LABS: CHOLESTEROL 180 mg/dL (50-200); HDL CHOLESTEROL 54 mg/dL (40-60); LDL CHOLESTEROL (ONLY SJRH) 96 mg/dL (5-100); TRIGLYCERIDES 89 mg/dL (0-150)
[2019-06-16 09:25] LABS: INR 1.01 (0.83-1.09); PROTHROMBIN TIME (PATIENT) 11.9 SEC (9.7-13.0)
[2019-06-16] MEDS ORDERED: INSULIN (LEVEMIR) 100 UNITS/ML UNITS SQ SCH ×2 (09:28→22:00)
[2019-06-16] MEDS ORDERED: MIDAZOLAM HCL 2 MG/2 ML SINGLE DOSE VIAL ONE ×3 (09:51→10:46)
[2019-06-16] MEDS ORDERED: EPHEDRINE SULFATE/0.9% NACL/PF 50 MG/10 ML SYRINGE NR ONE (09:51)
[2019-06-16] MEDS ORDERED: SUCCINYLCHOLINE CHLORIDE 200 MG/10 ML SYRINGE ONE (09:52)
[2019-06-16] MEDS ORDERED: LIDOCAINE HCL 1%, 10 MG/ML (20ML VIAL) ONE (09:56)
[2019-06-16] MEDS ORDERED: methylPREDNISolone NA SUCC 40 MG/1 ML VIAL IVPUSH SCH (10:00)
[2019-06-16] MEDS ORDERED: LISINOPRIL 20 MG TABLET (FP) PO SCH (10:00)
[2019-06-16] MEDS ORDERED: ceFAZolin SODIUM 1 GM VIAL IVPB ONE (10:28)
[2019-06-16] MEDS ORDERED: LIDOCAINE HCL 1%, 10 MG/ML (20ML VIAL) NR ONE ×2 (10:30→11:03)
[2019-06-16] MEDS ORDERED: ONDANSETRON 4 MG/2 ML VIAL IVPUSH PRN ×2 (10:37→13:50)
[2019-06-16] MEDS ORDERED: oxyCODONE HCL 5 MG TABLET PO PRN (10:37)
[2019-06-16] MEDS ORDERED: ACETAMINOPHEN 325 MG TABLET (FP) PO PRN ×2 (10:37→13:50)
[2019-06-16] MEDS ORDERED: ONDANSETRON 4 MG/2 ML VIAL ONE (11:11)
[2019-06-16] MEDS ORDERED: ceFAZolin SODIUM 1 GM VIAL ONE ×3 (11:11)
--- NOTE | 2019-06-16 11:11 | OP ---
Operative Note - Note: Operative Date: 06/16/19 Pre-Operative Diagnosis: rule out temporal arteritis Operation: left temporal artery biopsy Post-Operative Diagnosis: Same as Pre-op Surgeon: Michael Cornelius Anesthesia: Fractional Estimated Blood Loss (mls): 10 Operative Report Dictated: Yes
[2019-06-16] MEDS: PANTOPRAZOLE 40 MG TABLET (FP) PO SCH (12:30)
[2019-06-16] MEDS ORDERED: ARTIFICIAL TEARS (POLYVINYL ALCOHOL) OPTH DROPS OU PRN (13:50)
[2019-06-16] MEDS ORDERED: SODIUM CHLORIDE 1,000 ML IV SCH ×2 (13:50)
--- NOTE | 2019-06-16 14:37 | EKG ---
Test Reason : Blood Pressure : / mmHG Vent. Rate : 094 BPM Atrial Rate : 094 BPM P-R Int : 150 ms QRS Dur : 074 ms QT Int : 356 ms P-R-T Axes : 071 034 049 degrees QTc Int : 445 ms NORMAL SINUS RHYTHM CANNOT RULE OUT INFERIOR INFARCT , AGE UNDETERMINED WHEN COMPARED WITH ECG OF 18-DEC-2017 02:39, NO SIGNIFICANT CHANGE WAS FOUND Confirmed by ELO VELAZQUEZ MD ([id number]) on 06/16/2019 2:37:24 PM Referred By: Confirmed By:ELO VELAZQUEZ MD
[2019-06-16] MEDS ORDERED: Insulin (LOG) Aspart 100 UNITS/ML VIAL SQ ONE (17:29)
--- NOTE | 2019-06-16 18:25 | PN ---
Physical Exam: SUBJECTIVE: Patient seen and examined at the bedside. feeling better. seen by ophthalmology. s/p arterial biopsy today. OBJECTIVE: Patient is a 69 year old female with a significant past medical history of hypertension, diabetes mellitus II, hyperlipidemia, migranes and chronic lower ext neuropathy/pain (s/p steriod injections on Wednesday). Patient presents to the ED today with complaints of sudden left sided headache accompanied by left eye pressure with vision loss. Vital Signs Period Temp Pulse Resp BP Sys/Wells Pulse Ox Last 24 Hr 98 F-99.0 F 98-117 10-20 132-156/57-87 92-97 GENERAL: Awake, alert, and fully oriented, in no acute distress. HEAD: Normal with no signs of trauma. - wears glasses, left temporal tenderness EYES: Pupils equal, round and reactive to light, less eye pain reported EARS, NOSE, THROAT: Ears normal, nares patent, oropharynx clear without exudates. Moist mucous membranes. NECK: Normal range of motion, supple without lymphadenopathy, JVD, or masses. LUNGS: Breath sounds diminished, tolerating room air HEART: Regular rate and rhythm, normal S1 and S2 without murmur, rub or gallop. ABDOMEN: obese abdomen, no pain on palpation MUSCULOSKELETAL: Normal range of motion at all joints. No bony deformities or tenderness. No CVA tenderness. UPPER EXTREMITIES: No peripheral edema. LOWER EXTREMITIES: No peripheral edema. NEUROLOGICAL: Normal speech. ambulates with RW PSYCHIATRIC: Cooperative. Good eye contact. Appropriate mood and affect. Laboratory Results - last 24 hr 06/15/19 06/15/19 06/16/19 19:00 21:42 05:35 WBC 10.0 RBC 4.55 Hgb 12.4 Hct 36.3 MCV 79.8 L MCH 27.3 MCHC 34.2 RDW 14.4 Plt Count 310 MPV 8.4 D Absolute Neuts (auto) 8.5 H Neutrophils % 84.3 H Lymphocytes % 13.0 Monocytes % 2.5 L Eosinophils % 0.0 D Basophils % 0.2 Nucleated RBC % 0 PT with INR INR Sodium Potassium Chloride Carbon Dioxide Anion Gap BUN Creatinine Est GFR (CKD-EPI)AfAm Est GFR (CKD-EPI)NonAf POC Glucometer 362 Random Glucose Hemoglobin A1c % Calcium Magnesium Total Bilirubin AST ALT Alkaline Phosphatase Total Protein Albumin Triglycerides Cholesterol Total LDL Cholesterol HDL Cholesterol Urine Color Yellow Urine Appearance Clear Urine pH 7.0 D Ur Specific [place] 1.013 Urine Protein 3+ H Urine Glucose (UA) 1+ H Urine Ketones Trace H Urine Blood Negative Urine Nitrite Negative Urine Bilirubin Negative Urine Urobilinogen 0.2 Ur Leukocyte Esterase Negative Urine WBC (Auto) 1 Urine RBC (Auto) 1 Urine Casts (Auto) 0 U Epithel Cells (Auto) 1.5 Urine Bacteria (Auto) 44.0 Blood Type Antibody Screen 06/16/19 06/16/19 06/16/19 05:35 05:35 05:35 WBC RBC Hgb Hct MCV MCH MCHC RDW Plt Count MPV Absolute Neuts (auto) Neutrophils % Lymphocytes % Monocytes % Eosinophils % Basophils % Nucleated RBC % PT with INR 11.90 INR 1.01 Sodium 138 Potassium 4.2 Chloride 104 Carbon Dioxide 24 Anion Gap 9 BUN 14.1 Creatinine 0.9 Est GFR (CKD-EPI)AfAm 76.68 Est GFR (CKD-EPI)NonAf 66.16 POC Glucometer Random Glucose 282 H Hemoglobin A1c % Calcium 8.2 L Magnesium 1.8 Total Bilirubin 0.4 AST 9 L ALT 13 Alkaline Phosphatase 96 Total Protein 7.3 Albumin 2.9 L Triglycerides 89 Cholesterol 180 Total LDL Cholesterol 96 HDL Cholesterol 54 Urine Color Urine Appearance Urine pH Ur Specific [place] Urine Protein Urine Glucose (UA) Urine Ketones Urine Blood Urine Nitrite Urine Bilirubin Urine Urobilinogen Ur Leukocyte Esterase Urine WBC (Auto) Urine RBC (Auto) Urine Casts (Auto) U Epithel Cells (Auto) Urine Bacteria (Auto) Blood Type Antibody Screen 06/16/19 06/16/19 06/16/19 05:35 05:35 06:09 WBC RBC Hgb Hct MCV MCH MCHC RDW Plt Count MPV Absolute Neuts (auto) Neutrophils % Lymphocytes % Monocytes % Eosinophils % Basophils % Nucleated RBC % PT with INR INR Sodium Potassium Chloride Carbon Dioxide Anion Gap BUN Creatinine Est GFR (CKD-EPI)AfAm Est GFR (CKD-EPI)NonAf POC Glucometer 282 Random Glucose Hemoglobin A1c % 8.0 H Calcium Magnesium Total Bilirubin AST ALT Alkaline Phosphatase Total Protein Albumin Triglycerides Cholesterol Total LDL Cholesterol HDL Cholesterol Urine Color Urine Appearance Urine pH Ur Specific [place] Urine Protein Urine Glucose (UA) Urine Ketones Urine Blood Urine Nitrite Urine Bilirubin Urine Urobilinogen Ur Leukocyte Esterase Urine WBC (Auto) Urine RBC (Auto) Urine Casts (Auto) U Epithel Cells (Auto) Urine Bacteria (Auto) Blood Type B POSITIVE Antibody Screen Negative 06/16/19 06/16/19 06/16/19 08:43 12:23 17:24 WBC RBC Hgb Hct MCV MCH MCHC RDW Plt Count MPV Absolute Neuts (auto) Neutrophils % Lymphocytes % Monocytes % Eosinophils % Basophils % Nucleated RBC % PT with INR INR Sodium Potassium Chloride Carbon Dioxide Anion Gap BUN Creatinine Est GFR (CKD-EPI)AfAm Est GFR (CKD-EPI)NonAf POC Glucometer 257 423 Random Glucose Hemoglobin A1c % Calcium Magnesium Total Bilirubin AST ALT Alkaline Phosphatase Total Protein Albumin Triglycerides Cholesterol Total LDL Cholesterol HDL Cholesterol Urine Color Urine Appearance Urine pH Ur Specific [place] Urine Protein Urine Glucose (UA) Urine Ketones Urine Blood Urine Nitrite Urine Bilirubin Urine Urobilinogen Ur Leukocyte Esterase Urine WBC (Auto) Urine RBC (Auto) Urine Casts (Auto) U Epithel Cells (Auto) Urine Bacteria (Auto) Blood Type B POSITIVE Antibody Screen Active Medications Generic Name Dose Route Start Last Admin Trade Name Freq PRN Reason Stop Dose Admin Acetaminophen 650 mg 06/16/19 13:50 Tylenol - PO Q4H PRN PAIN 1-3 Acetaminophen/Butalbital/Caffeine 1 tablet 06/16/19 13:50 Fioricet - PO Q6H PRN HEADACHE Artificial Tears 1 drop 06/16/19 13:50 Artificial Tears OU BID PRN DRY EYES Fentanyl 25 mcg 06/16/19 13:50 Sublimaze Injection - IVPUSH 06/17/19 13:49 [id number] PRN PAIN-PACU ORDER X 4 DOSES ONLY Hydralazine HCl 50 mg 06/16/19 14:00 06/16/19 14:26 Apresoline - PO Not Given TID [facility] Insulin Aspart 1 vial 06/16/19 16:30 06/16/19 17:49 Novolog Vial Sliding Scale - SQ Not Given ACHS [facility] Protocol Insulin Detemir 20 units 06/16/19 22:00 Levemir Vial SQ 0700,2200 [facility] Lisinopril 40 mg 06/17/19 10:00 Prinivil PO DAILY [facility] Ondansetron HCl 4 mg 06/16/19 13:50 Zofran Injection IVPUSH Q6H PRN NAUSEA AND/OR VOMITING Oxycodone HCl 5 mg 06/16/19 13:50 Roxicodone - PO Q4H PRN PAIN LEVEL 1-5 Pantoprazole Sodium 40 mg 06/17/19 10:00 Protonix - PO DAILY [facility] Prednisone 60 mg 06/16/19 20:00 Deltasone - PO BID@0800,2000 [facility] ASSESSMENT/PLAN: Problem List - Problems (1) Headache Assessment/Plan: Patient with history of migraines who presents with sudden left sided headache accompanied by left eye pressure with vision loss Head Ct negative for acute process. Start on Fiorcet for pain relief. Given high dose steriods in the ED, now on prednisone BID dosing. s/p arterial biopsy Neurology consulted and following Rheumatology consulted and following. seen by optho who advised outpatient follow up. Code(s): R51 - HEADACHE (2) Blurry vision, left eye Assessment/Plan: left blurred vision accompanied with headache. seen by opthomology. patient to follow up outpatient. Code(s): H53.8 - OTHER VISUAL DISTURBANCES (3) Diabetes mellitus Assessment/Plan: start on novolog SS, and levemir monitor bgms ac/hs Code(s): E11.9 - TYPE 2 DIABETES MELLITUS WITHOUT COMPLICATIONS (4) HTN (hypertension) Assessment/Plan: continue home meds Code(s): I10 - ESSENTIAL (PRIMARY) HYPERTENSION (5) Morbid obesity with BMI of 45.0-49.9, adult Assessment/Plan: weight loss encouraged Code(s): E66.01 - MORBID (SEVERE) OBESITY DUE TO EXCESS CALORIES; Z68.42 - BODY MASS INDEX (BMI) 45.0-49.9, ADULT (6) Prophylactic measure Assessment/Plan: fen tolerating po monitor electrolytes full code Code(s): Z29.9 - ENCOUNTER FOR PROPHYLACTIC MEASURES, UNSPECIFIED Visit type - Emergency Visit Emergency Visit: Yes ED Registration Date: 06/15/19 Care time: The patient presented to the Emergency Department on the above date and was hospitalized for further evaluation of their emergent condition. - New Patient This patient is new to me today: No - Critical Care Critical Care patient: No - Discharge Referral Referred to [facility] Med P.C.: No
--- NOTE | 2019-06-16 18:37 | CONS ---
DATE OF CONSULTATION: DATE OF DICTATION: 06/16/2019 CONSULTATION FOR OPHTHALMOLOGY HISTORY OF PRESENT ILLNESS: The patient was examined on June 16 by her bedside. She was noted to have decreased vision from both eyes and had pain on the side of both sides of her head. Her vision with her glasses for near measured 20/50 in both eyes. Her ocular motility and pupil examination was normal. Anterior segment has significant cataract lens changes in both eyes. Her eye pressure was slightly elevated, measuring approximately 22 to 23 in both eyes. Dilated retinal examination showed no evidence of any acute changes. I did not see any hemorrhages with the indirect examination during today's visit. Her optic nerves were healthy and do not appear to be swollen. She says that she has another eye doctor's appointment with her regular vendor management specialist within the month, and she was recommended to follow up there. There is no need for any treatment in the hospital at this time. Thank you for your consultation. HARISH ABDI M.D. [id number]
[2019-06-16] MEDS: predniSONE 20 MG TABLET (UD) PO SCH (21:40)
[2019-06-16] MEDS: INSULIN (LEVEMIR) 100 UNITS/ML UNITS SQ SCH (21:46)
[2019-06-17] MEDS: ACETAMINOPHEN/CAFFEINE/BUTALBITAL 1 TAB PO PRN ×2 (01:40→08:35)
[2019-06-17] MEDS: oxyCODONE HCL 5 MG TABLET PO PRN (04:19)
[2019-06-17 05:53] LABS: BASO % 0.3 % (0-2.0); HEMATOCRIT 35.4 % (32.4-45.2); HEMOGLOBIN 11.4 GM/dL (10.7-15.3); LYMPH % 11.7 % (8-40); MCH 25.8 pg (25.7-33.7); MCHC 32.3 g/dl (32.0-36.0); MEAN CELL VOLUME 79.9 fl (80-96); MEAN PLT VOLUME 7.6 fl (7.5-11.1); MONO % 4.7 % (3.8-10.2); NEUT % 83.3 % (42.8-82.8); PLATELET COUNT 321 K/MM3 (134-434); RBC 4.43 M/mm3 (3.60-5.2); RDW 14.4 % (11.6-15.6); WHITE BLOOD COUNT 12.5 K/mm3 (4.0-10.0)
[2019-06-17] MEDS: hydrALAZINE HCL 50 MG TABLET (FP) PO SCH ×3 (06:34→21:08)
[2019-06-17] MEDS: INSULIN (LEVEMIR) 100 UNITS/ML UNITS SQ SCH ×2 (06:34→21:09)
[2019-06-17] MEDS: INSULIN SLIDING SCALE (NOVOLOG) 1 VIAL SQ SCH ×5 (06:35→21:10)
[2019-06-17 06:44] LABS: BILIRUBIN,TOTAL 0.3 mg/dL (0.2-1); CALCIUM 8.1 mg/dL (8.5-10.1); POTASSIUM 4.4 mmol/L (3.5-5.1); TOT PROT 7.1 g/dl (6.4-8.2)
[2019-06-17] MEDS: predniSONE 20 MG TABLET (UD) PO SCH ×2 (08:34→20:45)
--- NOTE | 2019-06-17 09:35 | PN ---
Physical Exam: SUBJECTIVE: Patient seen and examined at the bedside. s/p arterial biopsy, severe headaches continue. 05/25. OBJECTIVE: Patient is a 69 year old female with a significant past medical history of hypertension, diabetes mellitus II, hyperlipidemia, migranes and chronic lower ext neuropathy/pain (s/p steriod injections on Wednesday). Patient presents to the ED with complaints of sudden left sided headache accompanied by left eye pressure with vision loss. severe headaches 05/25 s/p arterial biopsy on 06/16/2019. left eye vision improving. will repeat head ct for severe headaches Vital Signs Period Temp Pulse Resp BP Sys/Wells Pulse Ox Last 24 Hr 97.1 F-99.1 F 95-115 10-20 127-157/57-86 93-97 GENERAL: Awake, alert, and fully oriented, in no acute distress. HEAD: Normal with no signs of trauma. - wears glasses, left temporal tenderness EYES: Pupils equal, round and reactive to light, less eye pain reported EARS, NOSE, THROAT: Ears normal, nares patent, oropharynx clear without exudates. Moist mucous membranes. NECK: Normal range of motion, supple without lymphadenopathy, JVD, or masses. LUNGS: Breath sounds diminished, tolerating room air HEART: Regular rate and rhythm, normal S1 and S2 without murmur, rub or gallop. ABDOMEN: obese abdomen, no pain on palpation MUSCULOSKELETAL: Normal range of motion at all joints. No bony deformities or tenderness. No CVA tenderness. UPPER EXTREMITIES: No peripheral edema. LOWER EXTREMITIES: No peripheral edema. NEUROLOGICAL: Normal speech. ambulates with RW PSYCHIATRIC: Cooperative. Good eye contact. Appropriate mood and affect. Laboratory Results - last 24 hr 06/15/19 06/16/19 06/16/19 10:10 12:23 17:24 WBC RBC Hgb Hct MCV MCH MCHC RDW Plt Count MPV Absolute Neuts (auto) Neutrophils % Lymphocytes % Monocytes % Eosinophils % Basophils % Nucleated RBC % Sodium Potassium Chloride Carbon Dioxide Anion Gap BUN Creatinine Est GFR (CKD-EPI)AfAm Est GFR (CKD-EPI)NonAf POC Glucometer 257 423 Random Glucose Calcium Total Bilirubin AST ALT Alkaline Phosphatase C-Reactive Protein 1.1 H Total Protein Albumin 06/16/19 06/17/19 06/17/19 21:38 05:38 05:38 WBC 12.5 H RBC 4.43 Hgb 11.4 Hct 35.4 MCV 79.9 L MCH 25.8 MCHC 32.3 RDW 14.4 Plt Count 321 MPV 7.6 Absolute Neuts (auto) 10.5 H Neutrophils % 83.3 H Lymphocytes % 11.7 Monocytes % 4.7 D Eosinophils % 0.0 Basophils % 0.3 Nucleated RBC % 0 Sodium 138 Potassium 4.4 Chloride 107 Carbon Dioxide 26 Anion Gap 6 L BUN 21.0 H Creatinine 1.0 Est GFR (CKD-EPI)AfAm 67.51 Est GFR (CKD-EPI)NonAf 58.25 POC Glucometer 358 Random Glucose 293 H Calcium 8.1 L Total Bilirubin 0.3 AST 25 ALT 19 Alkaline Phosphatase 97 C-Reactive Protein Total Protein 7.1 Albumin 3.0 L 06/17/19 06:32 WBC RBC Hgb Hct MCV MCH MCHC RDW Plt Count MPV Absolute Neuts (auto) Neutrophils % Lymphocytes % Monocytes % Eosinophils % Basophils % Nucleated RBC % Sodium Potassium Chloride Carbon Dioxide Anion Gap BUN Creatinine Est GFR (CKD-EPI)AfAm Est GFR (CKD-EPI)NonAf POC Glucometer 256 Random Glucose Calcium Total Bilirubin AST ALT Alkaline Phosphatase C-Reactive Protein Total Protein Albumin Active Medications Generic Name Dose Route Start Last Admin Trade Name Freq PRN Reason Stop Dose Admin Acetaminophen 650 mg 06/16/19 13:50 06/17/19 04:57 Tylenol - PO 650 mg Q4H PRN Administration PAIN 1-3 Acetaminophen/Butalbital/Caffeine 1 tablet 06/16/19 13:50 06/17/19 08:35 Fioricet - PO 1 tablet Q6H PRN Administration HEADACHE Artificial Tears 1 drop 06/16/19 13:50 06/16/19 21:49 Artificial Tears OU 1 drop BID PRN Administration DRY EYES Fentanyl 25 mcg 06/16/19 13:50 Sublimaze Injection - IVPUSH 06/17/19 13:49 [id number] PRN PAIN-PACU ORDER X 4 DOSES ONLY Hydralazine HCl 50 mg 06/16/19 14:00 06/17/19 06:34 Apresoline - PO 50 mg TID [facility] Administration Insulin Aspart 1 vial 06/16/19 16:30 06/17/19 06:35 Novolog Vial Sliding Scale - SQ 8 units ACHS [facility] Administration Protocol Insulin Detemir 20 units 06/16/19 22:00 06/17/19 06:34 Levemir Vial SQ 20 units 0700,2200 [facility] Administration Lisinopril 40 mg 06/17/19 10:00 Prinivil PO DAILY [facility] Ondansetron HCl 4 mg 06/16/19 13:50 06/17/19 05:01 Zofran Injection IVPUSH 4 mg Q6H PRN Administration NAUSEA AND/OR VOMITING Oxycodone HCl 5 mg 06/16/19 13:50 06/17/19 04:19 Roxicodone - PO 5 mg Q4H PRN Administration PAIN LEVEL 1-5 Pantoprazole Sodium 40 mg 06/17/19 10:00 Protonix - PO DAILY [facility] Prednisone 60 mg 06/16/19 20:00 06/17/19 08:34 Deltasone - PO 60 mg BID@0800,2000 [facility] Administration ASSESSMENT/PLAN: Problem List - Problems (1) Giant cell arteritis Assessment/Plan: given pulse dose of methylprednisolone 500mg and currently is on high dose then prednisone 60mg BID. Continue this dose for 4 weeks of treatment with follow up with rheumatology before tapering it off. Code(s): M31.6 - OTHER GIANT CELL ARTERITIS (2) Headache Assessment/Plan: Patient with history of migraines who presents with sudden left sided headache accompanied by left eye pressure with vision loss Head Ct negative for acute process. Start on Fiorcet for pain relief. Given high dose steriods in the ED, now on prednisone BID dosing. s/p arterial biopsy on 06/16/19 Neurology consulted and following Rheumatology consulted and following. seen by optho who advised outpatient follow up severe headaches today, unable to sleep. repeat head ct. Code(s): R51 - HEADACHE (3) Blurry vision, left eye Assessment/Plan: left blurred vision accompanied with headache. seen by opthomology. patient to follow up outpatient. Code(s): H53.8 - OTHER VISUAL DISTURBANCES (4) Diabetes mellitus Assessment/Plan: start on novolog SS, and levemir monitor bgms ac/hs Code(s): E11.9 - TYPE 2 DIABETES MELLITUS WITHOUT COMPLICATIONS (5) HTN (hypertension) Assessment/Plan: continue home meds Code(s): I10 - ESSENTIAL (PRIMARY) HYPERTENSION (6) Morbid obesity with BMI of 45.0-49.9, adult Assessment/Plan: weight loss encouraged Code(s): E66.01 - MORBID (SEVERE) OBESITY DUE TO EXCESS CALORIES; Z68.42 - BODY MASS INDEX (BMI) 45.0-49.9, ADULT (7) Prophylactic measure Assessment/Plan: fen tolerating po monitor electrolytes full code Code(s): Z29.9 - ENCOUNTER FOR PROPHYLACTIC MEASURES, UNSPECIFIED Visit type - Emergency Visit Emergency Visit: Yes ED Registration Date: 06/15/19 Care time: The patient presented to the Emergency Department on the above date and was hospitalized for further evaluation of their emergent condition. - New Patient This patient is new to me today: No - Critical Care Critical Care patient: No - Discharge Referral Referred to [facility] Med P.C.: No
[2019-06-17] MEDS: LISINOPRIL 20 MG TABLET (FP) PO SCH (09:39)
[2019-06-17] MEDS: PANTOPRAZOLE 40 MG TABLET (FP) PO SCH (09:40)
[2019-06-17] MEDS ORDERED: metoPROLOL SUCCINATE 25 MG TAB.SR.24H (FP) PO SCH (10:00)
[2019-06-17 16:07] LABS: DRVVT - 35.9 sec (0.0-47.0)
[2019-06-17] MEDS ORDERED: POLYETHYLENE GLYCOL 3350 119 GM BTL PO ONE (17:25)
[2019-06-17] MEDS ORDERED: INSULIN SLIDING SCALE (NOVOLOG) 1 VIAL SQ SCH ×2 (18:00→22:00)
[2019-06-18] MEDS: ACETAMINOPHEN/CAFFEINE/BUTALBITAL 1 TAB PO PRN ×2 (01:22→09:15)
[2019-06-18 06:13] LABS: BASO % 0.2 % (0-2.0); HEMATOCRIT 37.8 % (32.4-45.2); HEMOGLOBIN 12.7 GM/dL (10.7-15.3); MCH 26.9 pg (25.7-33.7); MCHC 33.6 g/dl (32.0-36.0); MEAN PLT VOLUME 7.9 fl (7.5-11.1); MONO % 3.7 % (3.8-10.2); NEUT % 84.1 % (42.8-82.8); PLATELET COUNT 348 K/MM3 (134-434); RBC 4.73 M/mm3 (3.60-5.2); RDW 14.8 % (11.6-15.6)
[2019-06-18] MEDS: oxyCODONE HCL 5 MG TABLET PO PRN (06:18)
[2019-06-18] MEDS: INSULIN SLIDING SCALE (NOVOLOG) 1 VIAL SQ SCH ×3 (06:19→16:49)
[2019-06-18] MEDS: hydrALAZINE HCL 50 MG TABLET (FP) PO SCH ×2 (06:19→14:58)
[2019-06-18] MEDS: INSULIN (LEVEMIR) 100 UNITS/ML UNITS SQ SCH (06:20)
[2019-06-18 07:05] LABS: ALBUMIN 3.3 g/dl (3.4-5.0); BILIRUBIN,TOTAL 0.2 mg/dL (0.2-1); BLOOD UREA NITROGEN 23.6 mg/dL (7-18); CALCIUM 8.7 mg/dL (8.5-10.1); CREATININE 0.9 mg/dL (0.55-1.3); POTASSIUM 5.2 mmol/L (3.5-5.1); TOT PROT 7.6 g/dl (6.4-8.2)
[2019-06-18] MEDS: LISINOPRIL 20 MG TABLET (FP) PO SCH (09:03)
[2019-06-18] MEDS: PANTOPRAZOLE 40 MG TABLET (FP) PO SCH (09:04)
[2019-06-18] MEDS: predniSONE 20 MG TABLET (UD) PO SCH (09:04)
--- NOTE | 2019-06-18 15:53 | DS ---
Physical Exam: SUBJECTIVE: Patient seen and examined. headaches resolved, slept better last night. patient instructed to follow up with Dr Gallegos and Dr. Cornelius as she is s /p biopsy and on high dose steriods. She verbalized understanding. OBJECTIVE: Patient is a 69 year old female with a significant past medical history of hypertension, diabetes mellitus II, hyperlipidemia, migranes and chronic lower ext neuropathy/pain (s/p steriod injections on Wednesday). Patient presents to the ED with complaints of sudden left sided headache accompanied by left eye pressure with vision loss. She will be discharged home today. She denies any headaches. nausea or vomiting. She is eating and ambulating well without issue. Instructed her to call Dr. Cornelius on Wednesday for results of the arterial biopsy. Spoke to her in great detail of the importance of monitoring blood sugars and follow a sliding scale while on high dose steriods. She has Novolog and Basalgar at home. Sliding scale taught to her by her primary RN. Patient also wants to see Dr. Boo as an outpatient for intermittent migranes. She has an opthomologist that she wants to see also but encouraged to call Dr. Simon who saw her during her hospital stay. Vital Signs Period Temp Pulse Resp BP Sys/Wells Pulse Ox Last 24 Hr 98.0 F-98.8 F 92-103 18-18 138-164/75-91 94-95 PHYSICAL EXAM LABS Laboratory Results - last 24 hr 06/17/19 06/17/19 06/18/19 17:11 21:07 05:45 WBC 14.0 H RBC 4.73 Hgb 12.7 Hct 37.8 MCV 80.0 MCH 26.9 MCHC 33.6 RDW 14.8 Plt Count 348 MPV 7.9 Absolute Neuts (auto) 11.7 H Neutrophils % 84.1 H Lymphocytes % 12.0 Monocytes % 3.7 L Eosinophils % 0.0 Basophils % 0.2 Nucleated RBC % 0 Sodium Potassium Chloride Carbon Dioxide Anion Gap BUN Creatinine Est GFR (CKD-EPI)AfAm Est GFR (CKD-EPI)NonAf POC Glucometer 417 316 Random Glucose Calcium Total Bilirubin AST ALT Alkaline Phosphatase Total Protein Albumin 06/18/19 06/18/19 06/18/19 05:45 05:51 11:35 WBC RBC Hgb Hct MCV MCH MCHC RDW Plt Count MPV Absolute Neuts (auto) Neutrophils % Lymphocytes % Monocytes % Eosinophils % Basophils % Nucleated RBC % Sodium 137 Potassium 5.2 H Chloride 104 Carbon Dioxide 27 Anion Gap 6 L BUN 23.6 H Creatinine 0.9 Est GFR (CKD-EPI)AfAm 76.68 Est GFR (CKD-EPI)NonAf 66.16 POC Glucometer 285 318 Random Glucose 276 H Calcium 8.7 Total Bilirubin 0.2 AST 25 ALT 29 Alkaline Phosphatase 104 Total Protein 7.6 Albumin 3.3 L HOSPITAL COURSE: Date of Admission:06/15/19 Date of Discharge: 06/18/19 GENERAL: Awake, alert, and fully oriented, in no acute distress. HEAD: Normal with no signs of trauma. - wears glasses, left temporal tenderness EYES: Pupils equal, round and reactive to light, less eye pain reported EARS, NOSE, THROAT: Ears normal, nares patent, oropharynx clear without exudates. Moist mucous membranes. NECK: Normal range of motion, supple without lymphadenopathy, JVD, or masses. LUNGS: Breath sounds diminished, tolerating room air HEART: Regular rate and rhythm, normal S1 and S2 without murmur, rub or gallop. ABDOMEN: obese abdomen, no pain on palpation MUSCULOSKELETAL: Normal range of motion at all joints. No bony deformities or tenderness. No CVA tenderness. UPPER EXTREMITIES: No peripheral edema. LOWER EXTREMITIES: No peripheral edema. NEUROLOGICAL: Normal speech. ambulates with RW PSYCHIATRIC: Cooperative. Good eye contact. Appropriate mood and affect. Minutes to complete discharge: 45 Discharge Summary Problems reviewed: Yes Reason For Visit: HEADACHE,VISION LOSS OF LEFT EYE Current Active Problems Blurry vision, left eye (Acute) Diabetes mellitus (Acute) Giant cell arteritis (Acute) HTN (hypertension) (Acute) Headache (Acute) Morbid obesity with BMI of 45.0-49.9, adult (Acute) Prophylactic measure (Acute) Condition: Stable - Instructions Diet, Activity, Other Instructions: Mrs Castellanos: You were admitted to [facility] for possible Giant Cell Arteritis. What is Giant Cell arteritis? GCA or giant cell arteritis i s inflammation of blood vessel, called arteries around your forehead. How is it treated? it is treated with Prednisone (steriods). You had a biopsy done and will need to follow up with Dr Cornelius for the results. What medications do I take? continue the Prednisone 60 mg TWICE per day. Please call Dr. Gallegos office on Wednesday for a follow up appointment. Usually the Prednisone is reduced down in about 2 weeks therefore, Dr. Gallegos (hot die press feeder) will guide you as to how much Prednisone you will continue on going forward. Since you are on high dose steriods, you will need to monitor your blood sugars. We would recommend that you follow this sliding scale with giving yourself the SHORT ACTING insulin (NOVOLOG) CONTINUE TAKING THE VICTOZA. IF your blood sugar is take this much insulin 101-150 0 151-200 6 201-250 8 251-300 10 301-350 12 351-400 14 400> 16 GIVE YOURSELF THE LONG ACTING INSULIN: BASAGLAR 20 UNITS IN THE MORNING, BASAGLAR 20 UNITS IN THE EVENING. Please follow up with Dr. Boo for migranes. Medications: For pain, try Tylenol or Toradol (called in for you). For headaches, please follow up with neurology for further recommendation. Referrals: Teodoro Hodgson MD [Staff Physician] - Baldomero Rodriguez MD [Staff Physician] - Prieto Boo MD [Staff Physician] - Disposition: HOME - Home Medications Comprehensive Discharge Medication List: Ambulatory Orders Furosemide 20 mg PO DAILY 06/15/19 Hydralazine HCl 50 mg PO TID 06/15/19 Lisinopril [Prinivil -] 40 mg PO DAILY 06/15/19 Tizanidine HCl 4 mg PO PRN 06/15/19 metFORMIN HCL [Metformin HCl ER] 750 mg PO DAILY 06/15/19 Acetaminophen [Tylenol .Regular Strength -] 650 mg PO Q4H PRN tablet 06/18/19 Ketorolac Tromethamine [Toradol] 10 mg PO Q6H #120 tablet 06/18/19 Ketorolac Tromethamine [Toradol] 10 mg PO Q6H #15 tablet 06/18/19 Metoprolol Succinate [Toprol XL -] 12.5 mg PO DAILY tab.sr.24h 06/18/19 Pantoprazole Sodium [Protonix -] 40 mg PO DAILY #90 tablet.ec 06/18/19 Pantoprazole Sodium [Protonix] 40 mg PO DAILY #60 tablet. 06/18/19 Prednisone [Deltasone] 60 mg PO BID #120 tablet 06/18/19 predniSONE [Deltasone -] 60 mg PO BID@0800,2000 #120 tablet 06/18/19 Problem List - Problems (1) Giant cell arteritis Assessment/Plan: given pulse dose of methylprednisolone 500mg and currently is on high dose then prednisone 60mg BID. Continue this dose for 2-4 weeks of treatment with follow up with rheumatology before tapering it off. She will call Dr. Gallegos and Dr. Cornelius for outpatient follow up. Code(s): M31.6 - OTHER GIANT CELL ARTERITIS (2) Headache Assessment/Plan: resolved Code(s): R51 - HEADACHE (3) Blurry vision, left eye Assessment/Plan: left blurred vision accompanied with headache, resolved Code(s): H53.8 - OTHER VISUAL DISTURBANCES (4) Diabetes mellitus Assessment/Plan: start on novolog SS, and levemir monitor bgms ac/hs Code(s): E11.9 - TYPE 2 DIABETES MELLITUS WITHOUT COMPLICATIONS (5) HTN (hypertension) Assessment/Plan: continue home meds Code(s): I10 - ESSENTIAL (PRIMARY) HYPERTENSION (6) Morbid obesity with BMI of 45.0-49.9, adult Assessment/Plan: weight loss encouraged Code(s): E66.01 - MORBID (SEVERE) OBESITY DUE TO EXCESS CALORIES; Z68.42 - BODY MASS INDEX (BMI) 45.0-49.9, ADULT (7) Prophylactic measure Assessment/Plan: fen tolerating po monitor electrolytes full code Code(s): Z29.9 - ENCOUNTER FOR PROPHYLACTIC MEASURES, UNSPECIFIED This patient is new to me today: Yes Date on this admission: 06/20/19 Emergency Visit: Yes ED Registration Date: 06/15/19 Care time: The patient presented to the Emergency Department on the above date and was hospitalized for further evaluation of their emergent condition. Critical Care patient: No - Discharge Referral Referred to [facility] Med P.C.: No
[2019-06-18 18:24] VITALS: BP 158/88; PULSE 91; TEMP 98.2
--- NOTE | 2019-06-19 16:55 | PATH ---
Surgical Pathology Report Patient Name: RADHA GROVER [facility]. Rec. #: [id number] /Age/Gender: 1950 (Age: 69) / F Account: [id number] Location: 4 SO PEDS/ADOL Taken: 06/16/2019 Received: 06/16/2019 Reported: 06/19/2019 Physicians: Michael Cornelius Specimen(s) Received LEFT TEMPORAL ARTERY BIOPSY Clinical History Headache, vision loss of left eye Final Diagnosis LEFT TEMPORAL ARTERY BIOPSY: PORTION OF ARTERY WITH MINUTE CALCIFICATION OF THE VESSEL WALL. NEGATIVE FOR INFLAMMATION. NEGATIVE FOR MALIGNANCY. Electronically Signed Suha Barriga M.D. Gross Description Received in formalin labeled "left temporal artery biopsy," is a 1.0 cm in length [place] portion of vascular tissue, consistent with a temporal artery biopsy. The specimen is serially sectioned and entirely submitted in one cassette. /06/16/2019 saudi06/16/2019
--- NOTE | 2019-06-21 11:40 | EKG ---
Test Reason : Blood Pressure : / mmHG Vent. Rate : 109 BPM Atrial Rate : 109 BPM P-R Int : 142 ms QRS Dur : 072 ms QT Int : 334 ms P-R-T Axes : 064 024 063 degrees QTc Int : 449 ms SINUS TACHYCARDIA POSSIBLE LEFT ATRIAL ENLARGEMENT CANNOT RULE OUT ANTERIOR INFARCT , AGE UNDETERMINED ABNORMAL ECG WHEN COMPARED WITH ECG OF 15-JUN-2019 14:34, NO SIGNIFICANT CHANGE WAS FOUND Confirmed by VIKAS NUÑEZ, ROMAN ([id number]) on 06/21/2019 11:39:47 AM Referred By: Confirmed By:ROMAN BEAN MD
--- NOTE | 2019-06-22 10:18 | OP ---
DATE OF OPERATION: 06/16/2019 PREOPERATIVE DIAGNOSIS: Left-sided headaches with left-sided blindness. POSTOPERATIVE DIAGNOSIS: Left-sided headaches with left-sided blindness. PROCEDURE: Left temporal artery biopsy. SURGEON: Michael Soni DO ANESTHESIA: Fractional. BLOOD LOSS: 10 mL. INDICATIONS: Patient is a 69-year-old female who comes in with left-sided headaches and temporary blindness that has resolved. She had an ESR elevated to about 67. Rheumatology saw the patient and was concerned about temporal arteritis. Plastic Surgery was consulted for temporal artery biopsy. Patient was consented for the procedure understanding all risks, benefits, alternatives then taken to the operating room. DESCRIPTION OF PROCEDURE: Once in the operative suite, she was laid on the operating table in supine manner, and the area of the temporal region was prepped and draped in a sterile surgical manner. We could feel the temporal artery pulse, and we were able to draw a 3-cm incision on top of the pulse using a skin marker. We then went ahead and injected 10 mL of lidocaine 1% in the area. We then took our 15 blade and made a 3-cm incision. Bovie electrocautery was used to control hemostasis, and we got down through all the subcutaneous tissue and got down to the fascia. We then used our Metzenbaum scissors, and we dissected out our temporal artery. Temporal artery was dissected anteriorly, posteriorly, and we were able to take a 2-cm segment that was pulsating well. Using our Doppler, we were able to listen to the temporal artery. We then went ahead and used a 3-0 silk, and the artery was tied off proximally and distally and ligated and sent off to Pathology. We then irrigated the wound copiously, 3-0 Vicryl was used, and the subcutaneous tissue was approximated in an interrupted manner. The skin was closed with 4-0 Biosyn in subcuticular running fashion. The area was wet and dried, and Dermabond was placed. Patient tolerated the procedure with no complication. Patient transferred to the PACU in stable condition. Total blood loss was 10 mL. MICHAEL SONI DO WELL REACTIVATOR OPERATOR/[id number]
== END 2019-06-18 18:50 | disposition home or self-care (01) | DRG 516 ==
LOC: JER 09:09 → JERBED 13:07 → J4S 16:32
PROVIDERS: ADMIT Internal Medicine; ATTEND Nurse Practitioner Family
PROC: 03BT3ZX Excision of Left Temporal Artery, Percutaneous Approach, Diagnostic (ICD-10-PCS; principal; 2019-06-16 10:00)
DX: M31.6 Other giant cell arteritis (principal); Z68.42 Body mass index [BMI] 45.0-49.9, adult; E78.5 Hyperlipidemia, unspecified; I10 Essential (primary) hypertension; G43.909 Migraine, unspecified, not intractable, without status migrainosus; Z79.84 Long term (current) use of oral hypoglycemic drugs; K21.9 Gastro-esophageal reflux disease without esophagitis; J44.9 Chronic obstructive pulmonary disease, unspecified; M81.0 Age-related osteoporosis without current pathological fracture; E66.01 Morbid (severe) obesity due to excess calories; H40.9 Unspecified glaucoma; E11.40 Type 2 diabetes mellitus with diabetic neuropathy, unspecified; H53.8 Other visual disturbances
CPT/HCPCS: 36415; 70450-TC; 71045-TC-FY; 80053; 80061; 81003; 82962; 83036; 83721; 83735; 85025; 85610; 85613; 85651; 85732; 86140; 86850; 86900; 86901; 88305-TC; 93005; 93010; 94760; 97116-GP; 97161-GP; 99284-25; J0131; J7030

== ENCOUNTER 2019-07-14 13:44 | Inpatient (IN) | payer OTHER ==
--- NOTE | 2019-07-14 13:58 | PDOC ---
Rapid Medical Evaluation Time Seen by Provider: 07/14/19 13:45 Medical Evaluation: Allergies Allergy/AdvReac Type Severity Reaction Status Date / Time codeine AdvReac Mild Vomiting Verified 06/15/19 09:58 07/14/19 13:56 Pt c/o: chest tightness, coughing x 3 days, no improvement with nebs, worse today, no palpitations Pt on brief exam: tachy on ekg 134, reproducible chest tenderness bilaterally Pt ordered for: labs, ekg, cxr, monitor, o2 Pt to proceed to the ED Discharge Disposition - Diagnosis Chest pain, Pneumonia - Discharge Dispostion Condition at time of disposition: Improved - Referrals - Patient Instructions - Post Discharge Activity
[2019-07-14] MEDS ORDERED: ALBUTEROL SO4 2.5/IPRATROPIUM 0.5 INH SOL 3 ML VIAL.NEB. NEB ONE ×2 (14:27→14:45)
[2019-07-14] MEDS ORDERED: DEXAMETHASONE SOD PHOSPHATE 10 MG/1 ML VIAL IVPUSH ONE (14:28)
--- NOTE | 2019-07-14 14:38 | PDOC ---
History of Present Illness - General Chief Complaint: Respiratory Stated Complaint: CHEST PAIN Time Seen by Provider: 07/14/19 13:45 History Source: Patient Exam Limitations: Language Barrier - History of Present Illness Initial Comments: Alyssa Castellanos is a 69 yo obese F w a hx of asthma, HTN, NIDDM, HLD, migraines and chronic lower ext neuropathy/pain who presents to the [facility] er with her daughter who sates that she has been coughing and producing purulent sputum for the past 3 days. The daughter who is at bedside assists with translation. The patient states that every time she coughs both sides of her chest are hurting. She states the chest pain is sharp in nature and has been present for the past 3 days. Patient states she had a fever yesterday associated with chills and diffuse body aches. She has asthma for which she has never been intubated or gone to the ICU and believes she is having a an asthma exacerbation because of her infection. Denies abdominal pain, headache, blurry vision, neck pain, dysuria, frequency, or urgency. PCP: Dr. Xochilt Cornelius PSH: None reported Social Hx: Denies smoking, drinking, or other substance usage Allergies: Codeine Past History - Past Medical History Allergies/Adverse Reactions: Allergies Allergy/AdvReac Type Severity Reaction Status Date / Time codeine AdvReac Mild Vomiting Verified 06/15/19 09:58 Home Medications: Ambulatory Orders Furosemide 20 mg PO DAILY 06/15/19 Hydralazine HCl 50 mg PO TID 06/15/19 Lisinopril [Prinivil -] 40 mg PO DAILY 06/15/19 Tizanidine HCl 4 mg PO PRN 06/15/19 metFORMIN HCL [Metformin HCl ER] 750 mg PO DAILY 06/15/19 Acetaminophen [Tylenol .Regular Strength -] 650 mg PO Q4H PRN tablet 06/18/19 Ketorolac Tromethamine [Toradol] 10 mg PO Q6H #120 tablet 06/18/19 Ketorolac Tromethamine [Toradol] 10 mg PO Q6H #15 tablet 06/18/19 Metoprolol Succinate [Toprol XL -] 12.5 mg PO DAILY tab.sr.24h 06/18/19 Pantoprazole Sodium [Protonix -] 40 mg PO DAILY #90 tablet.ec 11/03/19 Pantoprazole Sodium [Protonix] 40 mg PO DAILY #60 tablet. 06/18/19 predniSONE [Deltasone -] 60 mg PO BID@0800,2000 #120 tablet 06/18/19 predniSONE [Deltasone] 60 mg PO BID #120 tablet 06/18/19 Asthma: Yes COPD: Yes Diabetes: Yes GI Disorders: Yes (GERD) HTN: Yes Hypercholesterolemia: Yes - Surgical History Abdominal Surgery: Yes (Hernia repair) Appendectomy: Yes Orthopedic Surgery: Yes (Back Sx) - Immunization History Td Vaccination: Yes - Psycho Social/Smoking Cessation Hx Smoking Status: No Smoking History: Never smoked Years of Tobacco Use: 0 Have you smoked in the past 12 months: No Number of Cigarettes Smoked Daily: 0 Cigars Per Day: 0 Hx Alcohol Use: No Drug/Substance Use Hx: No Substance Use Type: None Hx Substance Use Treatment: No Review of Systems - Review of Systems Able to Perform ROS?: Yes Comments:: CONSTITUTIONAL: Present: fever, chills Absent: no fatigue EYES: Absent: visual changes ENT: Absent: ear pain, no sore throat CARDIOVASCULAR: Present: Chest pain Absent: no palpitations RESPIRATORY: Present: Cough, SOB GI: Absent: abdominal pain, no nausea, no vomiting, no constipation, no diarrhea GENITOURINARY: Absent: dysuria, no frequency, no hematuria MUSKULOSKELETAL: Present: Myalgia Absent: back pain, no arthralgia SKIN: Absent: rash NEURO: Absent: headache *Physical Exam - Physical Exam GENERAL: Obese, Well-appearing, well-nourished. Moderate apparent distress. HEENT: Normocephalic, atraumatic. PERRL, EOM intact. CARDIOVASCULAR: Tachycardic rate. Normal S1, S2. Regular rhythm. PULMONARY: There is bilateral diffuse expiratory wheezes. No rales or rhonchi. ABDOMEN: Soft, non-distended, non-tender. EXTREMITIES: Normal ROM in all four extremities. No gross deformities. SKIN: Warm, dry. No rash NEUROLOGICAL: No focal neurological deficits. ED Treatment Course - LABORATORY CBC & Chemistry Diagram: 07/14/19 14:39 07/14/19 14:39 Medical Decision Making - Medical Decision Making Alyssa Castellanos is a 69 yo obese F w a hx of asthma, HTN, NIDDM, HLD, migraines and chronic lower ext neuropathy/pain who presents to the [facility] er with her daughter who sates that she has been coughing and producing purulent sputum for the past 3 days. The daughter who is at bedside assists with translation. The patient states that every time she coughs both sides of her chest are hurting. She states the chest pain is sharp in nature and has been present for the past 3 days. Patient states she had a fever yesterday associated with chills and diffuse body aches. She has asthma for which she has never been intubated or gone to the ICU and believes she is having a an asthma exacerbation because of her infection. Vital Signs Temp Pulse Resp BP Pulse Ox 98.3 F 131 H 18 108/76 96 07/14/19 14:05 07/14/19 14:05 07/14/19 14:05 07/14/19 14:05 07/14/19 14:05 DDx IBNLT: URI, PNA, sepsis, ACS/TN, pneumothorax, arrhythmia, dehydration, electrolyte/metabolic disturbance, influenza, asthma exacerbation Plan: Labs, CXR, flu swab, duonebs, steroids, +/- Abx, Iv hydration, re-assess. Labs: Leukocytosis with left shift. CXR: Left perihilar infiltrate suggestive of PNA - Will start treatment with ceftriaxone and azithromycin EKG: Sinus tachycardia rate of 117, narrow complexes, normal axis, no hypertrophy, no ST elevations or depressions, no Q waves, TWI in aVL, QTc 449, CT 120 Flu Swab: Negative Re-assessment: Patient persistently in pain, hypoxic, and tachycardic. Will admit for PNA Disposition: Med/Surg for PNA Discharge - Discharge Information Problems reviewed: Yes Clinical Impression/Diagnosis: Chest pain Qualifiers: Chest pain type: unspecified Qualified Code(s): R07.9 - Chest pain, unspecified Pneumonia Qualifiers: Pneumonia type: due to unspecified organism Laterality: left Lung location: lower lobe of lung Qualified Code(s): J18.9 - Pneumonia, unspecified organism Condition: Stable - Admission Yes - Follow up/Referral Referrals: ON STAFF,NOT [Primary Care Provider] - - Patient Discharge Instructions - Post Discharge Activity
[2019-07-14] MEDS ORDERED: DEXAMETHASONE SOD PHOSPHATE 10 MG/1 ML VIAL ONE (14:45)
[2019-07-14 14:50] LABS: BASO % 0.7 % (0-2.0); EOS % 4.9 % (0-4.5); HEMATOCRIT 35.9 % (32.4-45.2); HEMOGLOBIN 11.7 GM/dL (10.7-15.3); LYMPH % 15.4 % (8-40); MCH 25.8 pg (25.7-33.7); MCHC 32.6 g/dl (32.0-36.0); MEAN CELL VOLUME 78.9 fl (80-96); MEAN PLT VOLUME 7.6 fl (7.5-11.1); MONO % 11.3 % (3.8-10.2); NEUT % 67.7 % (42.8-82.8); PLATELET COUNT 291 K/MM3 (134-434); RBC 4.55 M/mm3 (3.60-5.2); RDW 15.2 % (11.6-15.6); WHITE BLOOD COUNT 11.2 K/mm3 (4.0-10.0)
[2019-07-14 15:01] LABS: INR 1.12 (0.83-1.09); PROTHROMBIN TIME (PATIENT) 13.2 SEC (9.7-13.0)
[2019-07-14] MEDS ORDERED: SODIUM CHLORIDE 0.9% 500 ML INFUS.BAG IV ONE ×2 (15:03)
[2019-07-14] MEDS ORDERED: KETOROLAC TROMETHAMINE 30 MG/1 ML VIAL IVPUSH ONE (15:03)
[2019-07-14] MEDS ORDERED: KETOROLAC TROMETHAMINE 30 MG/1 ML VIAL ONE (15:28)
[2019-07-14 15:34] LABS: ALBUMIN 3.3 g/dl (3.4-5.0); BILIRUBIN,TOTAL 0.2 mg/dL (0.2-1); BLOOD UREA NITROGEN 17.1 mg/dL (7-18); CALCIUM 8.5 mg/dL (8.5-10.1); CREATININE 1.3 mg/dL (0.55-1.3); TOT PROT 7.1 g/dl (6.4-8.2)
--- NOTE | 2019-07-14 16:40 | PDOC ---
Attending Attestation - Resident Resident Name: Brad Mccrary - ED Attending Attestation I have performed the following: I have examined & evaluated the patient, The case was reviewed & discussed with the resident, I agree w/resident's findings & plan, Exceptions are as noted - HPI HPI: 07/14/19 16:40 Ms. Castellanos is a 69 yo F w a h/o asthma, HTN, NIDDM, HLD, migraines and chronic lower ext neuropathy/pain who presents to the [facility] with her daughter due to productive cough x 3 days. Pt reports chest pain with coughing Pain is sharp, no radiation, not exertional, not worse with palpation (+) fevers and chills yesterday Patient states she had a fever yesterday associated with chills and diffuse body aches. She has used 3 nebs prior to arrival to the ER Denies abdominal pain, headache, blurry vision, neck pain, dysuria, frequency, or urgency. - Physicial Exam PE: 07/14/19 16:15 GENERAL: The patient presents to the ER crying and panting ENT: Ears normal, nares patent, oropharynx clear without exudates. Moist mucous membranes. No tonsillar enlargement, no exudates NECK: Normal range of motion, supple LUNGS: There is bilateral diffuse expiratory wheezes. No rales or rhonchi. HEART: Tachycardia, no murmur, ABDOMEN: Soft, nontender, normoactive bowel sounds. EXTREMITIES: Normal range of motion, no edema. NEUROLOGICAL: Cranial nerves II through XII grossly intact. Normal speech. No focal neurological deficits. SKIN: Warm, Dry, normal turgor, no rashes or lesions noted. 07/14/19 16:42 - Medical Decision Making 07/14/19 16:48 Laboratory Tests 07/14/19 07/14/19 07/14/19 14:39 14:39 14:39 WBC 11.2 H Hgb 11.7 Hct 35.9 Plt Count 291 Neutrophils % 67.7 Lymphocytes % 15.4 D INR BUN 17.1 Creatinine 1.3 Creatine Kinase 208 H CK-MB (CK-2) < 1.0 Troponin I < 0.02 Influenza A (Rapid) Influenza B (Rapid) 07/14/19 07/14/19 14:39 15:05 WBC Hgb Hct Plt Count Neutrophils % Lymphocytes % INR 1.12 H BUN Creatinine Creatine Kinase CK-MB (CK-2) Troponin I Influenza A (Rapid) Negative Influenza B (Rapid) Negative 07/14/19 16:48 Chest x-ray: left perihilar infiltrate No acute consolidation, pleural effusion Pt has an O2 requirement which is new She continues to be dyspneic on exertion Continues to have chest pain 07/14/19 18:19 We will plan to admit Clinical impression: Pneumonia, initial presentation
[2019-07-14] MEDS ORDERED: AZITHROMYCIN IVPB 500 MG in DEXTROSE 5%-WATER - 250 ML IVPB ONE (18:39)
[2019-07-14] MEDS ORDERED: CEFTRIAXONE 1,000 MG in DEXTROSE 5%-WATER - 50 ML IVPB ONE (18:39)
[2019-07-14] MEDS ORDERED: CEFTRIAXONE 1 GM/50 ML BAG ONE (18:46)
[2019-07-14] MEDS ORDERED: AZITHROMYCIN IVPB 500 MG/250 ML BAG IVPB ONE (18:46)
--- NOTE | 2019-07-14 20:09 | HP ---
CHIEF COMPLAINT: Chest pain+SOB PCP: Dr Natalia Cornelius HISTORY OF PRESENT ILLNESS: Pt is a 69 y/o F with a significant past medical history of IDDM, HTN, HLD, migraines, chronic lower ext neuropathy/pain and asthma who presented to [facility] due to 3 days of reproducible chest pain and shortness of breath. Pain is worse with deep inspiration. Pt also endorsing a 5 day cough productive of greenish sputum. Pt denies any recent sick contacts. Has received her flu vaccine. Pt states her chest pain and shortness of breath progressively got worse today and this is what prompted her to come to our Emergency Department. Endorses subjective fevers, chills, and nausea. ER course was notable for: (1) Rapid Influenza negative (2) WBC 11.2 (3) CXR--> Left perihilar infiltrate suggestive of PNA Recent Travel: PAST MEDICAL HISTORY: PAST SURGICAL HISTORY: Laminectomy, hysterectomy Social History: Smoking:denies Alcohol: denies Drugs: denies Allergies codeine Adverse Reaction (Mild, Verified 06/15/19 09:58) Vomiting As stated by pt. HOME MEDICATIONS: Home Medications Medication Instructions Recorded Furosemide 20 mg PO DAILY 06/15/19 Hydralazine HCl 50 mg PO TID 06/15/19 Lisinopril [Prinivil -] 40 mg PO DAILY 06/15/19 Tizanidine HCl 4 mg PO PRN 06/15/19 metFORMIN HCL [Metformin HCl ER] 750 mg PO DAILY 06/15/19 Acetaminophen [Tylenol .Regular 650 mg PO Q4H PRN tablet 06/18/19 Strength -] Ketorolac Tromethamine [Toradol] 10 mg PO Q6H #120 tablet 06/18/19 Ketorolac Tromethamine [Toradol] 10 mg PO Q6H #15 tablet 06/18/19 Metoprolol Succinate [Toprol XL -] 12.5 mg PO DAILY tab.sr.24h 06/18/19 Pantoprazole Sodium [Protonix -] 40 mg PO DAILY #90 tablet.ec 06/18/19 Pantoprazole Sodium [Protonix] 40 mg PO DAILY #60 tablet. 06/18/19 predniSONE [Deltasone -] 60 mg PO BID@0800,2000 #120 tablet 06/18/19 predniSONE [Deltasone] 60 mg PO BID #120 tablet 06/18/19 REVIEW OF SYSTEMS CONSTITUTIONAL: PRESENT fever, chills, generalized weakness HEENT: Absent: rhinorrhea, nasal congestion, throat pain, throat swelling, difficulty swallowing, mouth swelling, ear pain, eye pain, visual changes CARDIOVASCULAR: Absent: chest pain, syncope, palpitations, irregular heart rate, lightheadedness , peripheral edema RESPIRATORY: PRESENT cough, shortness of breath, dyspnea with exertion, orthopnea, wheezing GASTROINTESTINAL: Absent: abdominal pain, abdominal distension, nausea, vomiting, diarrhea, constipation, melena, hematochezia GENITOURINARY: Absent: dysuria, frequency, urgency, hesitancy, hematuria, flank pain, genital pain MUSCULOSKELETAL: Absent: myalgia, arthralgia, joint swelling, back pain, neck pain SKIN: Absent: rash, itching, pallor HEMATOLOGIC/IMMUNOLOGIC: Absent: easy bleeding, easy bruising, lymphadenopathy, frequent infections ENDOCRINE: Absent: unexplained weight gain, unexplained weight loss, heat intolerance, cold intolerance NEUROLOGIC: Absent: headache, focal weakness or paresthesias, dizziness, unsteady gait, seizure, mental status changes, bladder or bowel incontinence PSYCHIATRIC: Absent: anxiety, depression, suicidal or homicidal ideation, hallucinations. PHYSICAL EXAMINATION Vital Signs - 24 hr 07/14/19 07/14/19 07/14/19 13:55 14:05 17:15 Temperature 98.3 F Pulse Rate 131 H Pulse Rate [ 120 H Apical] Respiratory 18 31 H Rate Blood Pressure 108/76 Blood Pressure 136/48 L [Left Arm] O2 Sat by Pulse 99 96 92 L Oximetry (%) GENERAL: Mild distress HEAD: Normal with no signs of trauma. EYES: EOMI Sclera Clear EARS, NOSE, THROAT: MMM. NECK: Supple LUNGS: Crackles left lung field HEART: RRR S1S2 ABDOMEN: Obese NDNT MUSCULOSKELETAL: FROM throughout LOWER EXTREMITIES: No significant edema NEUROLOGICAL: Cranial nerves II-XII intact. Normal speech. PSYCHIATRIC: Cooperative. Good eye contact. Appropriate mood and affect. SKIN: Warm, dry, normal turgor, no rashes or lesions noted, normal capillary refill. Laboratory Results - last 24 hr 07/14/19 07/14/19 07/14/19 13:55 14:39 14:39 WBC 11.2 H RBC 4.55 Hgb 11.7 Hct 35.9 MCV 78.9 L MCH 25.8 MCHC 32.6 RDW 15.2 Plt Count 291 MPV 7.6 Absolute Neuts (auto) 7.6 Neutrophils % 67.7 Lymphocytes % 15.4 D Monocytes % 11.3 H D Eosinophils % 4.9 H D Basophils % 0.7 D Nucleated RBC % 0 PT with INR INR Sodium Potassium Chloride Carbon Dioxide Anion Gap BUN Creatinine Est GFR (CKD-EPI)AfAm Est GFR (CKD-EPI)NonAf Random Glucose Calcium Magnesium 1.8 Total Bilirubin AST ALT Alkaline Phosphatase Creatine Kinase 208 H Creatine Kinase Index No Result Required. CK-MB (CK-2) < 1.0 Troponin I < 0.02 Total Protein Albumin Influenza A (Rapid) Influenza B (Rapid) 07/14/19 07/14/19 07/14/19 14:39 14:39 15:05 WBC RBC Hgb Hct MCV MCH MCHC RDW Plt Count MPV Absolute Neuts (auto) Neutrophils % Lymphocytes % Monocytes % Eosinophils % Basophils % Nucleated RBC % PT with INR 13.20 H INR 1.12 H Sodium 135 L Potassium 4.0 Chloride 103 Carbon Dioxide 26 Anion Gap 6 L BUN 17.1 Creatinine 1.3 Est GFR (CKD-EPI)AfAm 49.16 Est GFR (CKD-EPI)NonAf 42.42 Random Glucose 186 H Calcium 8.5 Magnesium Total Bilirubin 0.2 AST 18 ALT 15 Alkaline Phosphatase 90 Creatine Kinase Creatine Kinase Index CK-MB (CK-2) Troponin I Total Protein 7.1 Albumin 3.3 L Influenza A (Rapid) Negative Influenza B (Rapid) Negative ASSESSMENT/PLAN: Pt is a 69 y/o F with a significant past medical history of IDDM, HTN, HLD, migraines, chronic lower ext neuropathy/pain and asthma who presented to [facility] due to 3 days of reproducible chest pain and shortness of breath. #Community Acquired Pneumonia -CURB 65 score 3 as RR 30's, diastolic BP 48m and age over 65 -Placed on Cef+Azithro -Blood cultures -CBC in am to assess WBC -CXR in am #Likely Asthma Exacerbation -Prednisone 40 Daily x 5 days. -Duo nebs every 4 hour #IDDM -ISS while in hospital #HTN Resume SVETLANA-I AND Hydralazine HLD Resume Home meds #FEN NS@100cc Monitor Electrlytes Sodium controlled #DVT ppx: HEP SQ TID #Dispo: Med-Surg *Pt's medications need to be reconciled Visit type - Emergency Visit Emergency Visit: Yes ED Registration Date: 07/14/19 Care time: The patient presented to the Emergency Department on the above date and was hospitalized for further evaluation of their emergent condition. - New Patient This patient is new to me today: Yes Date on this admission: 07/14/19 - Critical Care Critical Care patient: No ATTENDING PHYSICIAN STATEMENT I saw and evaluated the patient. I reviewed the resident's note and discussed the case with the resident. I agree with the resident's findings and plan as documented. SUBJECTIVE: OBJECTIVE: ASSESSMENT AND PLAN:
[2019-07-14] MEDS ORDERED: ACETAMINOPHEN 1000 MG/100 ML VIAL (NON FORMULARY) IVPB ONE (21:40)
[2019-07-14] MEDS ORDERED: SODIUM CHLORIDE 1,000 ML IV SCH (21:45)
--- NOTE | 2019-07-14 23:28 | PN ---
Teaching Attending Note Name of Resident: Harjinder Abreu ATTENDING PHYSICIAN STATEMENT I saw and evaluated the patient. I reviewed the resident's note and discussed the case with the resident. I agree with the resident's findings and plan as documented. SUBJECTIVE: 69-year-old Morbidly obese woman from [place] with history of insulin -dependent diabetes mellitus, hypertension, migraines chronic lower extremity peripheral neuropathy, asthma presented to emergency room with 5 days of productive, nonbloody cough, SOB, associated with some chest tightness and pleuritic chest pain. She is complaining of subjective fevers, chills, nausea. Denied any recent sick contacts or travels. Patient reports that she believes that the cold weather may have influenced her in precipitated her breathing difficulty. OBJECTIVE: Last Vital Signs Temp Pulse Resp BP Pulse Ox 98.3 F 120 H 24 H 167/88 97 07/14/19 14:05 07/14/19 21:32 07/14/19 21:32 07/14/19 21:32 07/14/19 21:32 GENERAL: Morbidly obese well nourished. Awake and alert. No acute distress. HEENT: Normocephalic, atraumatic. PERRLA, EOMI. No conjunctival pallor. Sclera are non- icteric. Moist mucous membranes. Oropharynx is clear. NECK: Supple. Full ROM. No JVD. Carotid pulses 2+ and symmetric, without bruits. No thyromegaly. No lymphadenopathy. CARDIOVASCULAR: Regular rate and rhythm. No murmurs, rubs, or gallops. Distal pulses are 2+ and symmetric. PULMONARY: Crackles appreciated upon auscultation of mid to lower left lung ABDOMINAL: Soft. Non-tender. Non-distended. No rebound or guarding. No organomegaly. Normoactive bowel sounds. MUSCULOSKELETAL Normal range of motion at all joints. No bony deformities or tenderness. No CVA tenderness. EXTREMITIES: No cyanosis. No clubbing. No edema. No calf tenderness. SKIN: Warm and dry. Normal capillary refill. No rashes. No jaundice. PSYCHIATRIC: Cooperative. Good eye contact. Appropriate mood and affect. Abnormal Lab Results 07/14/19 07/14/19 07/14/19 14:39 14:39 14:39 WBC 11.2 H MCV 78.9 L Monocytes % 11.3 H D Eosinophils % 4.9 H D PT with INR INR Sodium 135 L Anion Gap 6 L Random Glucose 186 H Creatine Kinase 208 H Albumin 3.3 L 07/14/19 14:39 WBC MCV Monocytes % Eosinophils % PT with INR 13.20 H INR 1.12 H Sodium Anion Gap Random Glucose Creatine Kinase Albumin Imaging reviewed Chest x-ray showed prominent mediastinum with possible left perihilar infiltrate EKG was reviewed and showed sinus tachycardia without any acute ischemic changes ASSESSMENT AND PLAN: 69-year-old woman with sepsis secondary to community-acquired pneumonia with radiological evidence of left midline infiltrate, fever, leukocytosis, tachypnea. Flu swab was negative. Admit to [facility] Blood cultures x2 Sputum culture Monitor vital signs closely Supplemental oxygen via nasal cannula as needed IV fluid hydration Ceftriaxone and azithromycin Tight glucose control #Uncontrolled diabetes mellitus Levemir insulin basal NovoLog sliding scale A1c Diabetic diet SVETLANA inhibitor #Asthma exacerbationpossibly exacerbated by cold weather or acute lung infection Duo nebs every 4 hours Prednisone 40 mg daily Azithromycin Heparin subcutaneously for DVT prophylaxis
[2019-07-14] MEDS: INSULIN SLIDING SCALE (NOVOLOG) 1 VIAL SQ SCH (23:34)
[2019-07-14] MEDS: hydrALAZINE HCL 50 MG TABLET (FP) PO SCH (23:34)
[2019-07-14] MEDS: HEPARIN NA (PORCINE) 5,000 UNITS/ML 1ML VIAL SQ SCH (23:34)
[2019-07-15] MEDS: hydrALAZINE HCL 50 MG TABLET (FP) PO SCH ×4 (07:12→22:54)
[2019-07-15] MEDS: HEPARIN NA (PORCINE) 5,000 UNITS/ML 1ML VIAL SQ SCH ×3 (07:13→22:19)
[2019-07-15] MEDS: INSULIN SLIDING SCALE (NOVOLOG) 1 VIAL SQ SCH ×4 (07:13→22:20)
[2019-07-15] MEDS ORDERED: SODIUM CHLORIDE 1,000 ML IV SCH (08:39)
[2019-07-15] MEDS: ALBUTEROL SO4 2.5/IPRATROPIUM 0.5 INH SOL 3 ML VIAL.NEB. NEB SCH ×4 (08:50→21:30)
[2019-07-15 09:58] LABS: BASO % 0.4 % (0-2.0); EOS % 0.1 % (0-4.5); HEMATOCRIT 37.8 % (32.4-45.2); HEMOGLOBIN 12.1 GM/dL (10.7-15.3); LYMPH % 15.4 % (8-40); MCH 25.4 pg (25.7-33.7); MEAN CELL VOLUME 79.2 fl (80-96); MEAN PLT VOLUME 7.9 fl (7.5-11.1); MONO % 10.4 % (3.8-10.2); NEUT % 73.7 % (42.8-82.8); PLATELET COUNT 317 K/MM3 (134-434); RBC 4.77 M/mm3 (3.60-5.2); RDW 15.2 % (11.6-15.6); WHITE BLOOD COUNT 9.9 K/mm3 (4.0-10.0)
[2019-07-15] MEDS ORDERED: PNEUMOC 13-VAL CONJ-DIP CRM/PF 0.5 ML DISP.SYRIN IM ONE (10:00)
[2019-07-15] MEDS ORDERED: predniSONE 20 MG TABLET (UD) PO SCH (10:00)
[2019-07-15 10:06] LABS: INR 1.03 (0.83-1.09); PROTHROMBIN TIME (PATIENT) 12.2 SEC (9.7-13.0)
[2019-07-15 10:09] LABS: ACTIVATED PTT 28.2 SECONDS (25.2-36.5)
[2019-07-15] MEDS: LISINOPRIL 20 MG TABLET (FP) PO SCH (10:13)
[2019-07-15] MEDS: PANTOPRAZOLE 40 MG TABLET (FP) PO SCH (10:13)
[2019-07-15 10:23] LABS: ALBUMIN 3.1 g/dl (3.4-5.0); BILIRUBIN,TOTAL 0.2 mg/dL (0.2-1); BLOOD UREA NITROGEN 16.7 mg/dL (7-18); CALCIUM 8.4 mg/dL (8.5-10.1); CREATININE 0.7 mg/dL (0.55-1.3); PHOSPHOROUS 2.7 mg/dL (2.5-4.9); POTASSIUM 4.6 mmol/L (3.5-5.1); TOT PROT 7.4 g/dl (6.4-8.2)
[2019-07-15] MEDS ORDERED: INSULIN (NOVOLOG) ASPART 100 UNITS/ML 10ML VIAL ONE (11:51)
[2019-07-15] MEDS ORDERED: PT OWN MED DRAWER 7, Y5N ONE (15:33)
--- NOTE | 2019-07-15 15:52 | PN ---
Progress Note (short form) - Note Progress Note: SUBJECTIVE: Complains of SOB/wheeze/fever/chills. White sputum, no hemoptysis. no CP. OBJECTIVE: Afebrile, Hemodynamically Stable. Last Vital Signs Temp Pulse Resp BP Pulse Ox 98.7 F 108 H 18 153/84 94 L 07/15/19 15:31 07/15/19 15:31 07/15/19 15:31 07/15/19 15:31 07/15/19 09:00 HEENT - Atraumatic, Normocephalic. Heart - S1, S2, RRR Lungs - wheezing, decreased air entry Abdomen - Soft, High BMI. Mild epigastric tendeness. Extremities - no calf tenderness, trace edema. Neuro - AAO x 3. Tone/Power normal all extremities. Laboratory Results - last 24 hr 07/14/19 07/14/19 07/14/19 13:55 14:39 15:05 WBC RBC Hgb Hct MCV MCH MCHC RDW Plt Count MPV Absolute Neuts (auto) Neutrophils % Lymphocytes % Monocytes % Eosinophils % Basophils % Nucleated RBC % PT with INR INR PTT (Actin FS) Sodium Potassium Chloride Carbon Dioxide Anion Gap BUN Creatinine Est GFR (CKD-EPI)AfAm Est GFR (CKD-EPI)NonAf POC Glucometer Random Glucose Calcium Phosphorus Magnesium 1.8 Total Bilirubin AST ALT Alkaline Phosphatase Creatine Kinase Index No Result Required. CK-MB (CK-2) < 1.0 Total Protein Albumin Influenza A (Rapid) Negative Influenza B (Rapid) Negative 07/14/19 07/15/19 07/15/19 22:36 07:11 08:33 WBC 9.9 RBC 4.77 Hgb 12.1 Hct 37.8 MCV 79.2 L MCH 25.4 L MCHC 32.0 RDW 15.2 Plt Count 317 MPV 7.9 Absolute Neuts (auto) 7.3 Neutrophils % 73.7 Lymphocytes % 15.4 Monocytes % 10.4 H Eosinophils % 0.1 D Basophils % 0.4 Nucleated RBC % 0 PT with INR INR PTT (Actin FS) Sodium Potassium Chloride Carbon Dioxide Anion Gap BUN Creatinine Est GFR (CKD-EPI)AfAm Est GFR (CKD-EPI)NonAf POC Glucometer 341 195 Random Glucose Calcium Phosphorus Magnesium Total Bilirubin AST ALT Alkaline Phosphatase Creatine Kinase Index CK-MB (CK-2) Total Protein Albumin Influenza A (Rapid) Influenza B (Rapid) 07/15/19 07/15/19 07/15/19 08:33 08:33 11:15 WBC RBC Hgb Hct MCV MCH MCHC RDW Plt Count MPV Absolute Neuts (auto) Neutrophils % Lymphocytes % Monocytes % Eosinophils % Basophils % Nucleated RBC % PT with INR 12.20 INR 1.03 PTT (Actin FS) 28.2 Sodium 142 Potassium 4.6 Chloride 111 H Carbon Dioxide 25 Anion Gap 7 L BUN 16.7 Creatinine 0.7 Est GFR (CKD-EPI)AfAm 103.91 Est GFR (CKD-EPI)NonAf 89.65 POC Glucometer 233 Random Glucose 155 H Calcium 8.4 L Phosphorus 2.7 Magnesium 2.0 Total Bilirubin 0.2 AST 19 ALT 18 Alkaline Phosphatase 94 Creatine Kinase Index CK-MB (CK-2) Total Protein 7.4 Albumin 3.1 L Influenza A (Rapid) Influenza B (Rapid) Current Medications Generic Name Dose Route Start Last Admin Trade Name Freq PRN Reason Stop Dose Admin Albuterol/Ipratropium 1 amp 07/15/19 08:00 07/15/19 11:20 Duoneb - NEB 1 amp RQID ANIVAL Administration Heparin Sodium (Porcine) 5,000 unit 07/14/19 22:00 07/15/19 13:32 Heparin - SQ 5,000 unit TID ANIVAL Administration Hydralazine HCl 50 mg 07/14/19 22:00 07/15/19 14:05 Apresoline - PO 50 mg TID ANIVAL Administration Sodium Chloride 1,000 mls @ 75 mls/hr 07/15/19 08:39 07/15/19 09:20 Normal Saline - IV 75 mls/hr ASDIR ANIVAL Administration Insulin Aspart 1 vial 07/14/19 22:00 07/15/19 11:59 Novolog Vial Sliding Scale - SQ 4 units ACHS ANIVAL Administration Protocol Insulin Detemir 10 units 07/15/19 22:00 Levemir Vial SQ HS ANIVAL Lisinopril 40 mg 07/15/19 10:00 07/15/19 10:13 Prinivil PO 40 mg DAILY ANIVAL Administration Pantoprazole Sodium 40 mg 07/15/19 10:00 07/15/19 10:13 Protonix - PO 40 mg DAILY ANIVAL Administration Prednisone 40 mg 07/15/19 10:00 07/15/19 10:13 Deltasone - PO 40 mg DAILY ANIVAL Administration Home Medications Medication Instructions Recorded Furosemide 20 mg PO DAILY 06/15/19 Hydralazine HCl 50 mg PO TID 06/15/19 Lisinopril [Prinivil -] 40 mg PO DAILY 06/15/19 Tizanidine HCl 4 mg PO PRN 06/15/19 metFORMIN HCL [Metformin HCl ER] 750 mg PO DAILY 06/15/19 Acetaminophen [Tylenol .Regular 650 mg PO Q4H PRN tablet 06/18/19 Strength -] Ketorolac Tromethamine [Toradol] 10 mg PO Q6H #120 tablet 06/18/19 Ketorolac Tromethamine [Toradol] 10 mg PO Q6H #15 tablet 06/18/19 Metoprolol Succinate [Toprol XL -] 12.5 mg PO DAILY tab.sr.24h 06/18/19 Pantoprazole Sodium [Protonix -] 40 mg PO DAILY #90 tablet.ec 06/18/19 Pantoprazole Sodium [Protonix] 40 mg PO DAILY #60 tablet. 06/18/19 predniSONE [Deltasone -] 60 mg PO BID@0800,2000 #120 tablet 06/18/19 predniSONE [Deltasone] 60 mg PO BID #120 tablet 06/18/19 ASSESSMENT/PLAN: 69 year old female, with morbid obesity, DM 2, HTN, HLD, Migraines, Recently diagnosed Giant Cell Arteritis (discharged on high dose steroids), Asthma, peripheral neuropathy, presented with 5 da history of increasing SOB/wheeze/ cough/subjective fevers/chills. CXR - prominent mediastinum with left perihilar infiltrate 1. Acute Asthma Exacerbation with Pneumonia Flu negative CXR - L perihilar infiltrate Continue IV Ceftriaxone/Azithromycin Switch Prednisone to Solumedrol. Bronchodilator Nebs, Supplemental O2 for comfort. Blood Cx pending. Sputum Cx pending. Urine for legionella/strep Ag. 2. DM 2 - Uncontrolled. Levemir and Novolog sliding scale. 3. HTN - continue Lisinopril, Hydralazine, Metoprolol. 4. Hx Giant Cell Arteritis - recently discharged on Prednisone high dose for 2- 4 weeks with recommendation to follow up with Dr. Rodriguez as out-patient. She never took the steroids nor followed up with Rheumatology. 5. Chronic venous stasis/chronic diastolic CHF - on Lasix 20mg daily. Will continue. DVT Px- Heparin SQ GI Px - PPI Visit type - Emergency Visit Emergency Visit: Yes ED Registration Date: 07/14/19 Care time: The patient presented to the Emergency Department on the above date and was hospitalized for further evaluation of their emergent condition. - New Patient This patient is new to me today: Yes Date on this admission: 07/16/19 - Critical Care Critical Care patient: No - Discharge Referral Referred to [facility] Med P.C.: No
[2019-07-15] MEDS ORDERED: TIZANIDINE HCL 4 MG TABLET PO PRN (16:00)
[2019-07-15] MEDS: methylPREDNISolone NA SUCC 40 MG/1 ML VIAL IVPUSH SCH ×2 (16:20→22:19)
[2019-07-15] MEDS ORDERED: INSULIN (LEVEMIR) 100 UNITS/ML UNITS SQ SCH (22:00)
[2019-07-16] MEDS: methylPREDNISolone NA SUCC 40 MG/1 ML VIAL IVPUSH SCH ×2 (02:45→11:07)
[2019-07-16] MEDS: hydrALAZINE HCL 50 MG TABLET (FP) PO SCH ×3 (06:13→23:04)
[2019-07-16] MEDS: HEPARIN NA (PORCINE) 5,000 UNITS/ML 1ML VIAL SQ SCH ×3 (06:14→22:33)
[2019-07-16] MEDS: INSULIN SLIDING SCALE (NOVOLOG) 1 VIAL SQ SCH ×4 (07:17→22:36)
[2019-07-16] MEDS: ALBUTEROL SO4 2.5/IPRATROPIUM 0.5 INH SOL 3 ML VIAL.NEB. NEB SCH ×4 (07:50→20:40)
[2019-07-16] MEDS ORDERED: CEFEPIME HCL/D5W 2 GM/50 ML BAG IVPB SCH (10:00)
[2019-07-16] MEDS ORDERED: FUROSEMIDE 20 MG TABLET (FP) PO SCH (10:00)
[2019-07-16] MEDS ORDERED: PT OWN MED DRAWER 7, Y5N ONE ×2 (10:58→18:12)
[2019-07-16] MEDS ORDERED: predniSONE 20 MG TABLET (UD) PO ONE (11:00)
[2019-07-16] MEDS: LISINOPRIL 20 MG TABLET (FP) PO SCH (11:04)
[2019-07-16] MEDS: PANTOPRAZOLE 40 MG TABLET (FP) PO SCH (11:04)
[2019-07-16] MEDS: metoPROLOL SUCCINATE 25 MG TAB.SR.24H (FP) PO SCH (11:05)
[2019-07-16] MEDS: CEFEPIME 2 GM in DEXTROSE 5%-WATER 100 ML IVPB SCH ×2 (11:06→18:27)
[2019-07-16] MEDS: AZITHROMYCIN IVPB 500 MG/250 ML BAG IVPB SCH (12:15)
[2019-07-16] MEDS ORDERED: ONDANSETRON 4 MG TABLET PO ONE (12:36)
--- NOTE | 2019-07-16 13:33 | PN ---
Teaching Attending Note Name of Resident: José Silva ATTENDING PHYSICIAN STATEMENT I saw and evaluated the patient. I reviewed the resident's note and discussed the case with the resident. I agree with the resident's findings and plan as documented. SUBJECTIVE: Some improvement in SOB/wheeze. No fever/chills. White sputum, no hemoptysis. No CP. Complains of sensation of swollen lips, no difficulty swallowing. OBJECTIVE: Afebrile, Hemodynamically Stable. Comfortable on RA. No stridor. no respiratory distress. Last Vital Signs Temp Pulse Resp BP Pulse Ox 98.7 F 110 H 24 H 156/73 95 07/16/19 11:02 07/16/19 11:02 07/16/19 11:02 07/16/19 11:02 07/15/19 21:00 HEENT - Atraumatic, Normocephalic. Mild pharyngeal erythema, no exudate, swelling, no tongue or lip swelling. Heart - S1, S2, RRR Lungs - Bilateral wheeze, with increased air entry bilaterally Abdomen - Soft, High BMI. Soft, non-tender. Extremities - no calf tenderness, trace edema. Neuro - AAO x 3. Tone/Power normal all extremities. Laboratory Results - last 24 hr 07/15/19 07/15/19 07/16/19 17:21 21:53 06:12 POC Glucometer 350 347 375 07/16/19 12:33 POC Glucometer 385 Microbiology 07/15/19 17:55 Legionella Antigen - Final Urine For Antigen Detection Streptococcus pneumoniae Antigen (M - Final 07/14/19 20:20 Blood Culture - Preliminary Blood - Peripheral Venous NO GROWTH OBTAINED AFTER 24 HOURS, INCUBATION TO CONTINUE FOR 4 DAYS. 07/14/19 20:20 Blood Culture - Preliminary Blood - Peripheral Venous NO GROWTH OBTAINED AFTER 24 HOURS, INCUBATION TO CONTINUE FOR 4 DAYS. Current Medications Generic Name Dose Route Start Last Admin Trade Name Freq PRN Reason Stop Dose Admin Albuterol/Ipratropium 1 amp 07/15/19 08:00 07/16/19 11:35 Duoneb - NEB 1 amp RQID ANIVAL Administration Furosemide 20 mg 07/16/19 10:00 07/16/19 11:04 Lasix - PO 20 mg DAILY ANIVAL Administration Heparin Sodium (Porcine) 5,000 unit 07/14/19 22:00 07/16/19 06:14 Heparin - SQ Not Given TID ANIVAL Hydralazine HCl 50 mg 07/14/19 22:00 07/16/19 06:13 Apresoline - PO 50 mg TID ANIVAL Administration Cefepime HCl 2 gm in 50 mls @ 100 mls/hr 07/16/19 10:00 Maxipime 2gm Ivpb (Premix) IVPB Q8H-IV ANIVAL Protocol Azithromycin 500 mg in 250 mls @ 250 mls/hr 07/16/19 10:00 07/16/19 12:15 Zithromax 500mg Ivpb (Pre-Docked) IVPB 250 mls/hr DAILY ANIVAL Administration Cefepime HCl 2 gm/ Dextrose 100 mls @ 100 mls/hr 07/16/19 10:00 07/16/19 11: 06 IVPB 07/17/19 09:59 100 mls/hr Q8H-IV ANIVAL Administration Protocol Insulin Aspart 1 vial 07/15/19 15:55 07/16/19 12:34 Novolog Vial Sliding Scale - SQ 12 unit ACHS ANIVAL Administration Protocol Insulin Detemir 10 units 07/15/19 22:00 07/15/19 22:19 Levemir Vial SQ 10 units HS ANIVAL Administration Lisinopril 40 mg 07/15/19 10:00 07/16/19 11:04 Prinivil PO 40 mg DAILY ANIVAL Administration Metoprolol Succinate 12.5 mg 07/16/19 10:00 07/16/19 11:05 Toprol Xl - PO 12.5 mg DAILY ANIVAL Administration Pantoprazole Sodium 40 mg 07/15/19 10:00 07/16/19 11:04 Protonix - PO 40 mg DAILY ANVIAL Administration Prednisone 40 mg 07/17/19 10:00 Deltasone - PO DAILY ANIVAL Tizanidine HCl 4 mg 07/15/19 16:00 Tizanidine Hcl PO BID PRN MUSCLE SPASMS ASSESSMENT/PLAN: 69 year old female, with morbid obesity, DM 2, HTN, HLD, Migraines, Recently diagnosed Giant Cell Arteritis (discharged on high dose steroids), Asthma, peripheral neuropathy, presented with 5 da history of increasing SOB/wheeze/ cough/subjective fevers/chills. CXR - prominent mediastinum with left perihilar infiltrate 1. Acute Asthma Exacerbation with Pneumonia (HCAP, recent admission 1 month ago) Flu negative CXR - L perihilar infiltrate Ceftriaxone switched to Cefepime. Continue Azithromycin Transition Solumedrol to Prednisone at patient request as she feels uncomfortable with the IV Solumedrol. Objectively, no evidence clinically of adverse reaction or allergy. Bronchodilator Nebs, Supplemental O2 for comfort. Blood Cx negative. Sputum Cx pending. 2. DM 2 - Uncontrolled. Will increase Levemir and continue Novolog sliding scale. 3. HTN - continue Lisinopril, Hydralazine, Metoprolol. 4. Hx Giant Cell Arteritis - recently discharged on Prednisone high dose for 2- 4 weeks with recommendation to follow up with Dr. Rodriguez as out-patient. She never took the steroids nor followed up with Rheumatology. 5. Chronic venous stasis/chronic diastolic CHF - on Lasix 20mg daily. Will continue. DVT Px- Heparin SQ GI Px - PPI
--- NOTE | 2019-07-16 14:24 | PN ---
Physical Exam: SUBJECTIVE: Patient seen and examined in the morning. No acute events overnight. No complaints of chest pain, shortness of breath, abdominal pain, no headache, nausea, vomiting, diarrhea. OBJECTIVE: Vital Signs Period Temp Pulse Resp BP Sys/Wells Pulse Ox Last 24 Hr 98.2 F-99.1 F 104-117 18-24 121-172/60-97 95 GENERAL: The patient is awake, alert, and fully oriented, in no acute distress. HEAD: Normal with no signs of trauma. EARS,NOSE,THROAT: Moist Mucous membranes. LUNGS: Wheezes b/l. No accessory muscle use. HEART: Regular rate and rhythm, S1, S2 without murmur, rub or gallop. ABDOMEN: Soft, nontender, nondistended, normoactive bowel sounds EXTREMITIES: 2+ pulses, warm, well-perfused, no edema. Laboratory Results - last 24 hr 07/15/19 07/15/19 07/16/19 17:21 21:53 06:12 POC Glucometer 350 347 375 07/16/19 12:33 POC Glucometer 385 Active Medications Generic Name Dose Route Start Last Admin Trade Name Howardq PRN Reason Stop Dose Admin Albuterol/Ipratropium 1 amp 07/15/19 08:00 07/16/19 11:35 Duoneb - NEB 1 amp RQID ANIVAL Administration Furosemide 20 mg 07/16/19 10:00 07/16/19 11:04 Lasix - PO 20 mg DAILY ANIVAL Administration Heparin Sodium (Porcine) 5,000 unit 07/14/19 22:00 07/16/19 06:14 Heparin - SQ Not Given TID ANIVAL Hydralazine HCl 50 mg 07/14/19 22:00 07/16/19 06:13 Apresoline - PO 50 mg TID ANIVAL Administration Cefepime HCl 2 gm in 50 mls @ 100 mls/hr 07/16/19 10:00 Maxipime 2gm Ivpb (Premix) IVPB Q8H-IV ANIVAL Protocol Azithromycin 500 mg in 250 mls @ 250 mls/hr 07/16/19 10:00 07/16/19 12:15 Zithromax 500mg Ivpb (Pre-Docked) IVPB 250 mls/hr DAILY ANIVAL Administration Cefepime HCl 2 gm/ Dextrose 100 mls @ 100 mls/hr 07/16/19 10:00 07/16/19 11: 06 IVPB 07/17/19 09:59 100 mls/hr Q8H-IV ANIVAL Administration Protocol Insulin Aspart 1 vial 07/15/19 15:55 07/16/19 12:34 Novolog Vial Sliding Scale - SQ 12 unit ACHS ANIVAL Administration Protocol Insulin Detemir 15 units 07/16/19 22:00 Levemir Vial SQ HS [facility] Lisinopril 40 mg 07/15/19 10:00 07/16/19 11:04 Prinivil PO 40 mg DAILY ANIVAL Administration Metoprolol Succinate 12.5 mg 07/16/19 10:00 07/16/19 11:05 Toprol Xl - PO 12.5 mg DAILY ANIVAL Administration Pantoprazole Sodium 40 mg 07/15/19 10:00 07/16/19 11:04 Protonix - PO 40 mg DAILY ANIVAL Administration Prednisone 40 mg 07/17/19 10:00 Deltasone - PO DAILY ANIVAL Tizanidine HCl 4 mg 07/15/19 16:00 Tizanidine Hcl PO BID PRN MUSCLE SPASMS ASSESSMENT/PLAN: 69 F PMH of DM2, HTN, HLD, Migraines, recently diagnosed giant cell arteritis ( non compliant with steroids), peripheral neuropathy, who presents with acute exacerbation with pneumonia 1) Acute Asthma Exacerbation with pneumonia -Chest X-Ray shows left perihilar infiltrate -Was hospitalized within 1 month, likely HCAP -Azithromycin 500 mg IV Daily -Cefepime 2 gram IV Daily -Prednisone 60 mg PO today -Prednisone 40 mg PO Daily starting tomorrow -Duonebs PRN -Flu negative, blood culture pending, sputum culture pending 2)Hx of DM2 -uncontrolled -Insulin sliding scale -Levemir 15 units HS 3)Hx of HTN -Continue Lisinopril 40 mg PO QDaily -Continue Hydralazine 50 mg PO TID -Toprol XL 12.5 mg PO Qdaily 4)Hx of Giant Cell Areritis -noncompliant with prednisone or follow up 5) Hx of chronic venous stasis/chronic diastolic CHF -Furosemide 20 mg PO Daily DVT Prophylaxis: Heparin 5000 unit SQ Q8H F: Oral hydration E: Monitor CMP N: Sodium restricted diet Visit type - Emergency Visit Emergency Visit: Yes ED Registration Date: 07/14/19 Care time: The patient presented to the Emergency Department on the above date and was hospitalized for further evaluation of their emergent condition. - New Patient This patient is new to me today: Yes Date on this admission: 07/16/19 - Critical Care Critical Care patient: No ATTENDING PHYSICIAN STATEMENT I saw and evaluated the patient. I reviewed the resident's note and discussed the case with the resident. I agree with the resident's findings and plan as documented. SUBJECTIVE: OBJECTIVE: ASSESSMENT AND PLAN:
[2019-07-16 16:53] LABS: CALCIUM 8.5 mg/dL (8.5-10.1); CREATININE 1.6 mg/dL (0.55-1.3); POTASSIUM 4.9 mmol/L (3.5-5.1)
[2019-07-16] MEDS ORDERED: MELATONIN 5 MG TABLETS PO SCH (22:00)
[2019-07-16] MEDS ORDERED: INSULIN (LEVEMIR) 100 UNITS/ML UNITS SQ SCH (22:00)
[2019-07-17] MEDS ORDERED: INSULIN (NOVOLOG) ASPART 100 UNITS/ML 10ML VIAL SQ ONE (00:39)
[2019-07-17] MEDS: CEFEPIME 2 GM in SODIUM CHLORIDE 100 ML IVPB SCH ×2 (02:47→12:23)
[2019-07-17] MEDS: INSULIN SLIDING SCALE (NOVOLOG) 1 VIAL SQ SCH ×2 (06:54→12:22)
[2019-07-17] MEDS: hydrALAZINE HCL 50 MG TABLET (FP) PO SCH ×2 (06:54→14:45)
[2019-07-17] MEDS: HEPARIN NA (PORCINE) 5,000 UNITS/ML 1ML VIAL SQ SCH ×2 (06:55→14:45)
[2019-07-17] MEDS: ALBUTEROL SO4 2.5/IPRATROPIUM 0.5 INH SOL 3 ML VIAL.NEB. NEB SCH ×3 (07:45→15:35)
[2019-07-17] MEDS ORDERED: SODIUM CHLORIDE 1,000 ML IV STA (08:03)
[2019-07-17 09:10] VITALS: PULSE 113
[2019-07-17 09:26] LABS: BLOOD UREA NITROGEN 24.7 mg/dL (7-18); CALCIUM 8.9 mg/dL (8.5-10.1); CREATININE 0.8 mg/dL (0.55-1.3); POTASSIUM 4.7 mmol/L (3.5-5.1)
[2019-07-17] MEDS ORDERED: predniSONE 20 MG TABLET (UD) PO SCH (10:00)
[2019-07-17] MEDS ORDERED: PT OWN MED DRAWER 7, Y5N ONE ×2 (10:49→12:05)
[2019-07-17] MEDS: LISINOPRIL 20 MG TABLET (FP) PO SCH (10:55)
[2019-07-17] MEDS: metoPROLOL SUCCINATE 25 MG TAB.SR.24H (FP) PO SCH (10:55)
[2019-07-17] MEDS: PANTOPRAZOLE 40 MG TABLET (FP) PO SCH (10:55)
[2019-07-17] MEDS: AZITHROMYCIN IVPB 500 MG/250 ML BAG IVPB SCH (10:56)
--- NOTE | 2019-07-17 11:46 | EKG ---
Test Reason : Blood Pressure : / mmHG Vent. Rate : 134 BPM Atrial Rate : 134 BPM P-R Int : 118 ms QRS Dur : 072 ms QT Int : 292 ms P-R-T Axes : 073 052 082 degrees QTc Int : 436 ms SINUS TACHYCARDIA BIATRIAL ENLARGEMENT NONSPECIFIC ST AND T WAVE ABNORMALITY ABNORMAL ECG WHEN COMPARED WITH ECG OF 15-JUN-2019 18:30, NO SIGNIFICANT CHANGE WAS FOUND Confirmed by ANNITA NUÑEZ, GET ([id number]) on 07/17/2019 11:46:23 AM Referred By: Confirmed By:GET ARIZA MD
[2019-07-17 12:19] VITALS: BMI 45.8
[2019-07-17 15:05] VITALS: BP 158/85; TEMP 98.5
[2019-07-17] MEDS ORDERED: INSULIN (NOVOLOG) ASPART 100 UNITS/ML 10ML VIAL ONE (17:16)
--- NOTE | 2019-07-17 17:41 | DS ---
Physical Exam: SUBJECTIVE: Patient seen and examined in the morning. No acute events overnight. No complaints of chest pain, shortness of breath, abdominal pain, no nausea, vomiting, diarrhea, headache, fever, cough. OBJECTIVE: Vital Signs Period Temp Pulse Resp BP Sys/Wells Pulse Ox Last 24 Hr 97.7 F-98.5 F 100-113 20-20 124-163/61-90 95-95 PHYSICAL EXAM GENERAL: The patient is awake, alert, and fully oriented, in no acute distress. HEAD: Normal with no signs of trauma. EYES: PERRL, extraocular movements intact, sclera anicteric, conjunctiva clear. ENT: Ears normal, nares patent, oropharynx clear without exudates, moist mucous membranes. NECK: Trachea midline, full range of motion, supple. LUNGS: Breath sounds equal, clear to auscultation bilaterally, mild wheezes heard in the left middle lobe. HEART: Tachycardic, S1, S2 without murmur, rub or gallop. ABDOMEN: Soft, nontender, nondistended, normoactive bowel sounds, no guarding, no rebound, no hepatosplenomegaly, no masses. EXTREMITIES: 2+ pulses, warm, well-perfused, no edema. NEUROLOGICAL: Cranial nerves II through XII grossly intact. Normal speech, Normal Gait SKIN: Warm, dry, normal turgor, no rashes or lesions noted. LABS Laboratory Results - last 24 hr 07/16/19 07/17/19 07/17/19 22:00 00:23 02:04 Sodium Potassium Chloride Carbon Dioxide Anion Gap BUN Creatinine Est GFR (CKD-EPI)AfAm Est GFR (CKD-EPI)NonAf POC Glucometer 487 460 375 Random Glucose Calcium 07/17/19 07/17/19 07/17/19 06:52 08:10 12:17 Sodium 141 Potassium 4.7 Chloride 106 Carbon Dioxide 26 Anion Gap 8 BUN 24.7 H Creatinine 0.8 Est GFR (CKD-EPI)AfAm 88.42 Est GFR (CKD-EPI)NonAf 76.29 POC Glucometer 231 366 Random Glucose 213 H Calcium 8.9 Microbiology 07/15/19 17:55 Sputum - Expectorated Sputum Culture - Preliminary NORMAL RESPIRATORY CHARLETTE 07/14/19 20:20 Blood - Peripheral Venous Blood Culture - Preliminary NO GROWTH OBTAINED AFTER 48 HOURS, INCUBATION TO CONTINUE FOR 3 DAYS. 07/14/19 20:20 Blood - Peripheral Venous Blood Culture - Preliminary NO GROWTH OBTAINED AFTER 48 HOURS, INCUBATION TO CONTINUE FOR 3 DAYS. 07/15/19 17:55 Urine For Antigen Detection Legionella Antigen - Final 07/15/19 17:55 Urine For Antigen Detection Streptococcus pneumoniae Antigen (M - Final HOSPITAL COURSE: Date of Admission:07/14/19 Date of Discharge: 07/17/19 69 F PMH of DM2, HTN, HLD, Migraines, recently diagnosed giant cell arteritis ( non compliant with steroids), peripheral neuropathy, who presents with acute exacerbation of asthma with pneumonia. Patient was given duonebs, supplemental O2, and treated with cefepime and azithromycin IV. Patient was afebrile during admission with normal WBC count after 07/15. Patient was started on prednisone and then switched to IV methylprednisolone and then switched to prednisone taper. Patient will complete prednisone taper of 40 mg PO for 4 days after discharge. Patient will complete 2 days of Levaquin 750 mg PO Daily for 2 days after discharge. Patient was also prescribed duonebs to use at home. Cultures and flu swab were negative for patient. Imaging done this admission: Chest X-Ray: single portable view of the chest reveals a prominent mediastinum with prominent central markings with congestive changes, and possible left perihilar infiltrate. These findings are new since 06/15/19 (last X-ray done in this hospital before most recent admission). Minutes to complete discharge: 30 Discharge Summary Problems reviewed: Yes Reason For Visit: PNEUMONIA Condition: Improved - Instructions Diet, Activity, Other Instructions: You were admitted to the hospital because you had an exacerbation of your asthma. While you were here we did a chest x-ray, and saw that you had pneumonia as well. We treated you with IV antibiotics and a steroid. You will continue these medications after you leave the hospital. You will continue taking antibiotics while not in the hospital. Please take: Levofloxacin 750 mg, by mouth once day for 3 days. You will finish taking this medicine on 07/20/19. You will continue taking steroids for a short period of time. Please take: Prednisone 40 mg, by mouth, once a day for 4 days. You will finish taking this medicine on 07/21/19. Do not take any more prednisone after 07/21/19. We are prescribing you new inhalers to help treat your asthma. Take them up to three times daily. Please continue all your other home medications as directed. Please follow up with Dr. Xochilt Cornelius, within 1 week to follow up with your health maintenance and update them on this admission to the hospital. Return to the emergency department if you have fevers, cough, headache, chest pain, shortness of breath or worsening of your symptoms. Referrals: Xochilt Cornelius M.D [Other] - 1 Week Disposition: HOME - Home Medications Comprehensive Discharge Medication List: Ambulatory Orders Furosemide 20 mg PO DAILY 06/15/19 Hydralazine HCl 50 mg PO TID 06/15/19 Lisinopril [Prinivil -] 40 mg PO DAILY 06/15/19 Tizanidine HCl 4 mg PO PRN 06/15/19 metFORMIN HCL [Metformin HCl ER] 750 mg PO DAILY 06/15/19 Acetaminophen [Tylenol .Regular Strength -] 650 mg PO Q4H PRN tablet 06/18/19 Ketorolac Tromethamine [Toradol -] 10 mg PO Q6H #120 tablet 06/18/19 Ketorolac Tromethamine [Toradol -] 10 mg PO Q6H #15 tablet 06/18/19 Metoprolol Succinate [Toprol XL -] 12.5 mg PO DAILY tab.sr.24h 06/18/19 Pantoprazole Sodium [Protonix -] 40 mg PO DAILY #90 tablet.ec 06/18/19 Pantoprazole Sodium [Protonix] 40 mg PO DAILY #60 tablet. 06/18/19 Albuterol 2.5/Ipratropium 0.5 [Duoneb -] 1 amp NEB RQID 30 Days #1 amp 07/17/19 levoFLOXacin [Levaquin -] 750 mg PO DAILY #3 tablet 07/17/19 predniSONE [Deltasone -] 40 mg PO DAILY 4 Days #8 tablet 07/17/19 This patient is new to me today: No Emergency Visit: Yes ED Registration Date: 07/14/19 Care time: The patient presented to the Emergency Department on the above date and was hospitalized for further evaluation of their emergent condition. Critical Care patient: No - Discharge Referral Referred to [facility] No ATTENDING PHYSICIAN STATEMENT I saw and evaluated the patient. I reviewed the resident's note and discussed the case with the resident. I agree with the resident's findings and plan as documented. SUBJECTIVE: OBJECTIVE: ASSESSMENT AND PLAN:
--- NOTE | 2019-07-17 17:57 | PN ---
Teaching Attending Note Name of Resident: José Silva ATTENDING PHYSICIAN STATEMENT I saw and evaluated the patient. I reviewed the resident's note and discussed the case with the resident. I agree with the resident's findings and plan as documented. SUBJECTIVE: Iimprovement in SOB/wheeze. No fever/chills. White sputum, no hemoptysis. No CP. No further sensation of swollen lips. OBJECTIVE: Afebrile, Hemodynamically Stable. Comfortable on RA. No stridor. no respiratory distress. Last Vital Signs Temp Pulse Resp BP Pulse Ox 98.5 F 113 H 20 158/85 95 07/17/19 15:00 07/17/19 15:00 07/17/19 15:00 07/17/19 15:00 07/17/19 09:00 HEENT - Atraumatic, Normocephalic. Mild pharyngeal erythema, no exudate. No tongue or lip swelling. Heart - S1, S2, RRR Lungs - Increased air entry bilaterally with some wheeze Abdomen - Soft, High BMI. Soft, non-tender. Extremities - no calf tenderness, trace edema. Neuro - AAO x 3. Tone/Power normal all extremities. Laboratory Results - last 24 hr 07/16/19 07/17/19 07/17/19 22:00 00:23 02:04 Sodium Potassium Chloride Carbon Dioxide Anion Gap BUN Creatinine Est GFR (CKD-EPI)AfAm Est GFR (CKD-EPI)NonAf POC Glucometer 487 460 375 Random Glucose Calcium 07/17/19 07/17/19 07/17/19 06:52 08:10 12:17 Sodium 141 Potassium 4.7 Chloride 106 Carbon Dioxide 26 Anion Gap 8 BUN 24.7 H Creatinine 0.8 Est GFR (CKD-EPI)AfAm 88.42 Est GFR (CKD-EPI)NonAf 76.29 POC Glucometer 231 366 Random Glucose 213 H Calcium 8.9 Discharge Medications Medication Instructions Recorded Furosemide 20 mg PO DAILY 06/15/19 Hydralazine HCl 50 mg PO TID 06/15/19 Lisinopril [Prinivil -] 40 mg PO DAILY 06/15/19 Tizanidine HCl 4 mg PO PRN 06/15/19 metFORMIN HCL [Metformin HCl ER] 750 mg PO DAILY 06/15/19 Acetaminophen [Tylenol .Regular 650 mg PO Q4H PRN tablet 06/18/19 Strength -] Ketorolac Tromethamine [Toradol -] 10 mg PO Q6H #120 tablet 06/18/19 Ketorolac Tromethamine [Toradol -] 10 mg PO Q6H #15 tablet 06/18/19 Metoprolol Succinate [Toprol XL -] 12.5 mg PO DAILY tab.sr.24h 06/18/19 Pantoprazole Sodium [Protonix -] 40 mg PO DAILY #90 tablet.ec 06/18/19 Pantoprazole Sodium [Protonix] 40 mg PO DAILY #60 tablet. 06/18/19 Albuterol 2.5/Ipratropium 0.5 1 amp NEB RQID 30 Days #1 amp 07/17/19 [Duoneb -] levoFLOXacin [Levaquin -] 750 mg PO DAILY #3 tablet 07/17/19 predniSONE [Deltasone -] 40 mg PO DAILY 4 Days #8 tablet 07/17/19 ASSESSMENT/PLAN: 69 year old female, with morbid obesity, DM 2, HTN, HLD, Migraines, Recently diagnosed Giant Cell Arteritis (discharged on high dose steroids), Asthma, peripheral neuropathy, presented with 5 da history of increasing SOB/wheeze/ cough/subjective fevers/chills. CXR - prominent mediastinum with left perihilar infiltrate 1. Acute Asthma Exacerbation with Pneumonia (HCAP, recent admission 1 month ago) Flu negative CXR - L perihilar infiltrate Completed 2 days of in-patient Abx - to continue Levofloxacin for 3 additional days Continue Prednisone 40 mg for 4 additional days Bronchodilator Nebs recommended and nebulizer prescription given Blood Cx negative. Sputum Cx pending. 2. DM 2 - Uncontrolled. Resumed on metformin and advised to follow with her PCP. 3. HTN - continue Lisinopril, Hydralazine, Metoprolol. 4. Hx Giant Cell Arteritis - recently discharged on Prednisone high dose for 2- 4 weeks with recommendation to follow up with Dr. Rodriguez as out-patient. She never took the steroids nor followed up with Rheumatology. 5. Chronic venous stasis/chronic diastolic CHF - on Lasix 20mg daily. Will continue. GI Px - PPI especially while on steroids
--- NOTE | 2019-07-18 12:52 | EKG ---
Test Reason : Blood Pressure : / mmHG Vent. Rate : 117 BPM Atrial Rate : 117 BPM P-R Int : 120 ms QRS Dur : 070 ms QT Int : 322 ms P-R-T Axes : 063 038 081 degrees QTc Int : 449 ms POOR DATA QUALITY, INTERPRETATION MAY BE ADVERSELY AFFECTED SINUS TACHYCARDIA OTHERWISE NORMAL ECG WHEN COMPARED WITH ECG OF 14-JUL-2019 13:51, NO SIGNIFICANT CHANGE WAS FOUND Confirmed by MD HOLLAND, YARITZA ([id number]) on 07/18/2019 12:51:42 PM Referred By: Confirmed By:YARITZA LINO MD
== END 2019-07-17 17:19 | disposition home or self-care (01) | DRG 202 ==
LOC: JER 13:44 → J5S 18:40 → JER 23:28
PROVIDERS: ADMIT Internal Medicine
DX: J45.901 Unspecified asthma with (acute) exacerbation (principal); J18.9 Pneumonia, unspecified organism; I50.32 Chronic diastolic (congestive) heart failure; Z68.42 Body mass index [BMI] 45.0-49.9, adult; I11.0 Hypertensive heart disease with heart failure; E11.42 Type 2 diabetes mellitus with diabetic polyneuropathy; G43.909 Migraine, unspecified, not intractable, without status migrainosus; Z79.84 Long term (current) use of oral hypoglycemic drugs; E66.01 Morbid (severe) obesity due to excess calories; Z79.4 Long term (current) use of insulin; E78.5 Hyperlipidemia, unspecified; E11.65 Type 2 diabetes mellitus with hyperglycemia; I87.2 Venous insufficiency (chronic) (peripheral); M31.6 Other giant cell arteritis
CPT/HCPCS: 36415; 71045-TC-FY; 80048; 80053; 82550; 82553; 82962; 83735; 84100; 84484; 85025; 85610; 85730; 87040; 87070; 87205; 87804; 87899; 90670; 93005; 93010; 94640; 94761; 99285-25; J1100; J1644; J7030

== ENCOUNTER 2021-02-19 05:34 | Emergency (ER) | payer OTHER ==
[2021-02-19] MEDS ORDERED: ACETAMINOPHEN 500 MG TABLET (FP) PO ONE (05:59)
[2021-02-19] MEDS ORDERED: METOCLOPRAMIDE HCL INJECTION 10 MG/2 ML VIAL IVPUSH ONE (06:03)
[2021-02-19 06:11] VITALS: BP 165/92; PULSE 88; TEMP 98.6; BMI 49.4
[2021-02-19] MEDS ORDERED: METOCLOPRAMIDE HCL INJECTION 10 MG/2 ML VIAL ONE (06:16)
== END 2021-02-19 09:00 | disposition home or self-care (01) ==
LOC: JER 05:34
PROC: 3E033GC Introduction of Other Therapeutic Substance into Peripheral Vein, Percutaneous Approach (ICD-10-PCS; principal; 2021-02-19)
PROC: 3E033GC Introduction of Other Therapeutic Substance into Peripheral Vein, Percutaneous Approach (ICD-10-PCS; 2021-02-19)
DX: R51.9 Headache, unspecified (principal)
CPT/HCPCS: 70450-TC; 96374; 96375; 99284-25

== ENCOUNTER 2021-02-21 14:02 | Inpatient (IN) | payer OTHER ==
[2021-02-21 14:10] VITALS: BMI 48.4
[2021-02-21] MEDS ORDERED: ACETAMINOPHEN 1000 MG/100 ML VIAL (NON FORMULARY) IVPB ONE (14:40)
[2021-02-21] MEDS ORDERED: FUROSEMIDE 40 MG/4 ML INJECTABLE VIAL IVPUSH ONE (14:41)
[2021-02-21] MEDS ORDERED: ACETAMINOPHEN INJECTION 100 ML IVPB ONE (14:47)
[2021-02-21] MEDS ORDERED: FUROSEMIDE 40 MG/4 ML INJECTABLE VIAL ONE (14:47)
[2021-02-21 15:18] LABS: BASO % 0.5 % (0-2.0); EOS % 5.5 % (0-4.5); HEMATOCRIT 36.5 % (32.4-45.2); HEMOGLOBIN 11.8 GM/dL (10.7-15.3); LYMPH % 16.9 % (8-40); MCH 25.1 pg (25.7-33.7); MCHC 32.3 g/dl (32.0-36.0); MEAN CELL VOLUME 77.6 fl (80-96); NEUT % 71.1 % (42.8-82.8); PLATELET COUNT 292 10^3/uL (134-434); RDW 16.8 % (11.6-15.6); WHITE BLOOD COUNT 12.6 K/mm3 (4.0-10.0)
[2021-02-21 15:36] LABS: CHLORIDE 105 mmol/L (98-107); SODIUM 138 mmol/L (136-145)
[2021-02-21 15:38] LABS: CALCIUM 9.1 mg/dL (8.5-10.1)
[2021-02-21 15:39] LABS: ALBUMIN 3.1 g/dl (3.4-5.0); ANION GAP 7 MMOL/L (8-16); BLOOD UREA NITROGEN 16.4 mg/dL (7-18); CO2 26 mmol/L (21-32); GLUCOSE,RANDOM 259 mg/dL (74-106)
[2021-02-21 15:42] LABS: CREATININE 0.8 mg/dL (0.55-1.3); SGOT/AST 43 U/L (15-37); SGPT/ALT 23 U/L (13-61)
[2021-02-21 15:43] LABS: BILIRUBIN,TOTAL 0.3 mg/dL (0.2-1)
[2021-02-21 15:44] LABS: TOT PROT 7.5 g/dl (6.4-8.2)
[2021-02-21 15:45] LABS: ALK PHOS 117 U/L (45-117)
[2021-02-21 15:47] LABS: N-TERMINAL BNP 59.6 pg/ml (5-125)
[2021-02-21 18:36] LABS: EPI CELLS 9 /uL (0-25.1); HYALINE CASTS 0 /uL (0-3.1); PH,URINE 6.5 (5.0-8.0); URINE APPEARANCE CLEAR; URINE BACTERIA 391 /uL (0-1359); URINE BILIRUBIN NEGATIVE (NEGATIVE); URINE COLOR YELLOW; URINE GLUCOSE (UA) TRACE (NEGATIVE); URINE KETONE NEGATIVE (NEGATIVE); URINE LEUK ESTERASE NEGATIVE (NEGATIVE); URINE NITRITE NEGATIVE (NEGATIVE); URINE PROTEIN 2+ (NEGATIVE); URINE RBC 11 /uL (0-23.9); URINE UROBILINOGEN 0.2 mg/dL (0.2-1.0); URINE WBC 8 /uL (0-25.8)
[2021-02-21] MEDS: ALBUTEROL SO4 2.5/IPRATROPIUM 0.5 INH SOL 3 ML VIAL.NEB. NEB SCH (20:54)
[2021-02-21] MEDS ORDERED: ASPIRIN 81 MG CHEWABLE TABLETS PO ONE (21:29)
[2021-02-21] MEDS: ENOXAPARIN NA (PORCINE) 40 MG/0.4 ML DISP.SYRIN SQ SCH (21:32)
[2021-02-21] MEDS: hydrALAZINE HCL 50 MG TABLET (FP) PO SCH (21:32)
[2021-02-21] MEDS: INSULIN SLIDING SCALE (NOVOLOG) 1 VIAL SQ SCH (21:37)
[2021-02-22] MEDS: ACETAMINOPHEN 325 MG TABLET (FP) PO PRN (04:38)
[2021-02-22] MEDS: hydrALAZINE HCL 50 MG TABLET (FP) PO SCH ×3 (05:16→21:12)
[2021-02-22] MEDS: INSULIN SLIDING SCALE (NOVOLOG) 1 VIAL SQ SCH ×4 (06:17→21:12)
[2021-02-22 07:38] LABS: BASO % 0.7 % (0-2.0); EOS % 7.5 % (0-4.5); HEMOGLOBIN 10.8 GM/dL (10.7-15.3); LYMPH % 20.3 % (8-40); MCH 24.8 pg (25.7-33.7); MCHC 31.8 g/dl (32.0-36.0); MEAN CELL VOLUME 77.9 fl (80-96); MEAN PLT VOLUME 7.6 fl (7.5-11.1); MONO % 6.1 % (3.8-10.2); NEUT % 65.4 % (42.8-82.8); PLATELET COUNT 292 10^3/uL (134-434); RBC 4.37 M/mm3 (3.60-5.2); RDW 17.1 % (11.6-15.6); WHITE BLOOD COUNT 11.1 K/mm3 (4.0-10.0)
[2021-02-22] MEDS: ALBUTEROL SO4 2.5/IPRATROPIUM 0.5 INH SOL 3 ML VIAL.NEB. NEB SCH ×4 (07:54→20:13)
[2021-02-22 08:03] LABS: ALBUMIN 2.8 g/dl (3.4-5.0); BLOOD UREA NITROGEN 14.4 mg/dL (7-18); CALCIUM 8.5 mg/dL (8.5-10.1)
[2021-02-22 08:04] LABS: MAGNESIUM 1.9 mg/dL (1.8-2.4)
[2021-02-22 08:06] LABS: CREATININE 0.7 mg/dL (0.55-1.3)
[2021-02-22 08:07] LABS: PHOSPHOROUS 3.8 mg/dL (2.5-4.9)
[2021-02-22 08:08] LABS: BILIRUBIN,TOTAL 0.5 mg/dL (0.2-1); TOT PROT 6.6 g/dl (6.4-8.2)
[2021-02-22] MEDS ORDERED: LISINOPRIL 20 MG TABLET PO SCH (10:00)
[2021-02-22] MEDS: ASPIRIN 81 MG CHEWABLE TABLETS PO SCH (10:05)
[2021-02-22] MEDS: FUROSEMIDE 20 MG TABLET (FP) PO SCH (10:05)
[2021-02-22] MEDS: ENOXAPARIN NA (PORCINE) 40 MG/0.4 ML DISP.SYRIN SQ SCH ×2 (10:05→21:09)
[2021-02-22] MEDS: RANOLAZINE E.R. 500 MG TABLET (FP) PO SCH ×2 (11:46→21:09)
[2021-02-22] MEDS ORDERED: PT OWN MED DRAWER 7, Y5N ONE (16:36)
[2021-02-23] MEDS: ACETAMINOPHEN 325 MG TABLET (FP) PO PRN ×2 (00:10→17:08)
[2021-02-23] MEDS: hydrALAZINE HCL 50 MG TABLET (FP) PO SCH ×3 (06:08→21:53)
[2021-02-23] MEDS: INSULIN SLIDING SCALE (NOVOLOG) 1 VIAL SQ SCH ×4 (06:11→21:55)
[2021-02-23 06:43] LABS: CHOLESTEROL 226 mg/dL (50-200)
[2021-02-23 06:44] LABS: LDL CHOLESTEROL (ONLY SJRH) 133 mg/dL (5-100); TRIGLYCERIDES 205 mg/dL (0-150)
[2021-02-23 06:46] LABS: HDL CHOLESTEROL 51 mg/dL (40-60)
[2021-02-23] MEDS: ALBUTEROL SO4 2.5/IPRATROPIUM 0.5 INH SOL 3 ML VIAL.NEB. NEB SCH ×4 (08:08→19:45)
[2021-02-23] MEDS: RANOLAZINE E.R. 500 MG TABLET (FP) PO SCH ×2 (09:34→21:54)
[2021-02-23] MEDS: ASPIRIN 81 MG CHEWABLE TABLETS PO SCH (09:34)
[2021-02-23] MEDS: FUROSEMIDE 20 MG TABLET (FP) PO SCH (09:34)
[2021-02-23] MEDS: ENOXAPARIN NA (PORCINE) 40 MG/0.4 ML DISP.SYRIN SQ SCH ×2 (09:35→21:54)
[2021-02-23] MEDS: LISINOPRIL 20 MG TABLET PO SCH ×2 (09:35→21:53)
[2021-02-23] MEDS ORDERED: FUROSEMIDE 20 MG TABLET (FP) PO ONE (11:06)
[2021-02-23] MEDS ORDERED: ROSUVASTATIN CA 10 MG TABLET (FP) ONE (21:52)
[2021-02-23] MEDS ORDERED: ROSUVASTATIN CA 20 MG TABLET (FP) PO SCH (22:00)
[2021-02-24] MEDS: hydrALAZINE HCL 50 MG TABLET (FP) PO SCH ×2 (06:20→13:19)
[2021-02-24] MEDS: INSULIN SLIDING SCALE (NOVOLOG) 1 VIAL SQ SCH ×3 (06:20→17:11)
[2021-02-24 07:55] LABS: CALCIUM 8.5 mg/dL (8.5-10.1)
[2021-02-24 07:56] LABS: BLOOD UREA NITROGEN 25.4 mg/dL (7-18)
[2021-02-24 07:59] LABS: CREATININE 0.8 mg/dL (0.55-1.3)
[2021-02-24] MEDS: LISINOPRIL 20 MG TABLET PO SCH ×2 (08:21→12:32)
[2021-02-24] MEDS: RANOLAZINE E.R. 500 MG TABLET (FP) PO SCH ×2 (08:21→12:30)
[2021-02-24] MEDS: ALBUTEROL SO4 2.5/IPRATROPIUM 0.5 INH SOL 3 ML VIAL.NEB. NEB SCH ×3 (08:25→16:27)
[2021-02-24] MEDS ORDERED: REGADENOSON 0.4 MG/5 ML PRE-FILLED SYRINGE IVPUSH ONE ×2 (10:14→11:45)
[2021-02-24] MEDS: FUROSEMIDE 20 MG TABLET (FP) PO SCH (12:31)
[2021-02-24] MEDS: ENOXAPARIN NA (PORCINE) 40 MG/0.4 ML DISP.SYRIN SQ SCH (12:31)
[2021-02-24] MEDS: ASPIRIN 81 MG CHEWABLE TABLETS PO SCH (12:31)
[2021-02-24 16:11] LABS: BASO % 1.1 % (0-2.0); EOS % 6.2 % (0-4.5); HEMATOCRIT 35.7 % (32.4-45.2); HEMOGLOBIN 11.4 GM/dL (10.7-15.3); LYMPH % 12.4 % (8-40); MCH 24.8 pg (25.7-33.7); MCHC 31.9 g/dl (32.0-36.0); MEAN CELL VOLUME 77.6 fl (80-96); MONO % 5.8 % (3.8-10.2); NEUT % 74.5 % (42.8-82.8); PLATELET COUNT 305 10^3/uL (134-434); RBC 4.61 M/mm3 (3.60-5.2); RDW 16.6 % (11.6-15.6); WHITE BLOOD COUNT 12.5 K/mm3 (4.0-10.0)
[2021-02-24 16:28] LABS: CALCIUM 8.8 mg/dL (8.5-10.1)
[2021-02-24 16:29] LABS: BLOOD UREA NITROGEN 27.7 mg/dL (7-18)
[2021-02-24 16:32] LABS: CREATININE 1.1 mg/dL (0.55-1.3); PHOSPHOROUS 4.3 mg/dL (2.5-4.9)
[2021-02-24 16:33] LABS: BILIRUBIN,TOTAL 0.3 mg/dL (0.2-1); TOT PROT 7.2 g/dl (6.4-8.2)
[2021-02-24 17:36] VITALS: BP 146/70; PULSE 97; TEMP 98.2
== END 2021-02-24 18:30 | disposition home or self-care (01) | DRG 292 ==
LOC: JER 14:02 → JERBED 18:10 → OBSVTOIN 18:59 → J4S 20:40
PROVIDERS: ATTEND Internal Medicine
DX: I11.0 Hypertensive heart disease with heart failure (principal); Z68.42 Body mass index [BMI] 45.0-49.9, adult; I50.33 Acute on chronic diastolic (congestive) heart failure; E78.5 Hyperlipidemia, unspecified; J45.909 Unspecified asthma, uncomplicated; K21.9 Gastro-esophageal reflux disease without esophagitis; G25.81 Restless legs syndrome; F39 Unspecified mood [affective] disorder; M54.30 Sciatica, unspecified side; E66.01 Morbid (severe) obesity due to excess calories; G43.909 Migraine, unspecified, not intractable, without status migrainosus; E11.40 Type 2 diabetes mellitus with diabetic neuropathy, unspecified; R00.0 Tachycardia, unspecified; G47.33 Obstructive sleep apnea (adult) (pediatric); M51.36 Other intervertebral disc degeneration, lumbar region; I20.9 Angina pectoris, unspecified; D72.829 Elevated white blood cell count, unspecified
CPT/HCPCS: 36415; 71045-TC-FY; 71250-TC; 78452-TC; 80048; 80053; 80061; 81003; 82550; 82553; 82962; 83036; 83721; 83735; 83880; 84100; 84484; 85025; 87086; 93005; 93010; 93017; 93306-TC; 93970-TC; 94640; 97116-GP; 97161-GP; 99285-25; A9502; C9803; G0378; J0131; J2785; U0003; U0005

== ENCOUNTER 2021-02-26 07:16 | Inpatient (IN) | payer OTHER ==
[2021-02-26] MEDS ORDERED: FAMOTIDINE 20 MG/50 ML IVPB 20 MG/50 ML MG IVPB ONE ×2 (07:58→08:00)
[2021-02-26] MEDS ORDERED: LORazepam 0.5 MG TABLET PO ONE (07:58)
[2021-02-26] MEDS ORDERED: NITROGLYCERIN 2% OINTMENT - 1GM PACKET TD ONE ×2 (07:59→08:00)
[2021-02-26] MEDS ORDERED: LORazepam 0.5 MG TABLET ONE (08:00)
[2021-02-26 08:36] LABS: BASO % 0.3 % (0-2.0); EOS % 0.5 % (0-4.5); HEMATOCRIT 35.5 % (32.4-45.2); HEMOGLOBIN 11.5 GM/dL (10.7-15.3); LYMPH % 7.6 % (8-40); MCH 24.9 pg (25.7-33.7); MCHC 32.5 g/dl (32.0-36.0); MEAN CELL VOLUME 76.8 fl (80-96); MEAN PLT VOLUME 7.4 fl (7.5-11.1); MONO % 1.9 % (3.8-10.2); NEUT % 89.7 % (42.8-82.8); PLATELET COUNT 329 10^3/uL (134-434); RBC 4.62 M/mm3 (3.60-5.2); RDW 16.6 % (11.6-15.6); WHITE BLOOD COUNT 11.2 K/mm3 (4.0-10.0)
[2021-02-26 09:05] LABS: CHLORIDE 102 mmol/L (98-107); SODIUM 135 mmol/L (136-145)
[2021-02-26 09:07] LABS: CALCIUM 9.1 mg/dL (8.5-10.1)
[2021-02-26 09:08] LABS: CO2 22 mmol/L (21-32); GLUCOSE,RANDOM 303 mg/dL (74-106)
[2021-02-26 09:10] LABS: SGPT/ALT 28 U/L (13-61)
[2021-02-26 09:11] LABS: SGOT/AST 31 U/L (15-37)
[2021-02-26 09:12] LABS: BILIRUBIN,TOTAL 0.4 mg/dL (0.2-1); TOT PROT 7.4 g/dl (6.4-8.2)
[2021-02-26 09:13] LABS: ALK PHOS 107 U/L (45-117)
[2021-02-26 09:15] LABS: ANION GAP 10 MMOL/L (8-16)
[2021-02-26] MEDS ORDERED: ASPIRIN 325 MG ENTERIC COATED TABLET (FP) PO ONE (09:42)
[2021-02-26] MEDS ORDERED: ASPIRIN 325 MG ENTERIC COATED TABLET (FP) ONE (09:44)
[2021-02-26 10:16] LABS: CALCIUM 8.8 mg/dL (8.5-10.1)
[2021-02-26 10:17] LABS: ALBUMIN 3.1 g/dl (3.4-5.0); BLOOD UREA NITROGEN 21.1 mg/dL (7-18)
[2021-02-26 10:21] LABS: BILIRUBIN,TOTAL 1.4 mg/dL (0.2-1); TOT PROT 7.3 g/dl (6.4-8.2)
[2021-02-26] MEDS ORDERED: INSULIN REGULAR HUMAN 100 UNITS/ML *VIAL SQ ONE (10:26)
[2021-02-26] MEDS ORDERED: LISINOPRIL 20 MG TABLET PO ONE (12:00)
[2021-02-26] MEDS ORDERED: LISINOPRIL 20 MG TABLET ONE (12:41)
[2021-02-26] MEDS ORDERED: ENOXAPARIN NA (PORCINE) 40 MG/0.4 ML DISP.SYRIN SQ ONE (12:42)
[2021-02-26] MEDS: ENOXAPARIN NA (PORCINE) 40 MG/0.4 ML DISP.SYRIN SQ SCH (12:43)
[2021-02-26] MEDS: RANOLAZINE E.R. 500 MG TABLET (FP) PO SCH ×2 (14:39→22:12)
[2021-02-26] MEDS: FUROSEMIDE 20 MG TABLET (FP) PO SCH (14:39)
[2021-02-26] MEDS: hydrALAZINE HCL 50 MG TABLET (FP) PO SCH ×2 (14:39→22:12)
[2021-02-26] MEDS: FLUTICASONE/SALMETEROL 100 MCG/50 MCG DISKUS IH SCH ×2 (14:39→22:40)
[2021-02-26] MEDS ORDERED: ALBUTEROL SO4 2.5/IPRATROPIUM 0.5 INH SOL 3 ML VIAL.NEB. NEB SCH (16:00)
[2021-02-26] MEDS: INSULIN SLIDING SCALE (NOVOLOG) 1 VIAL SQ SCH ×2 (17:00→22:15)
[2021-02-26] MEDS ORDERED: ALBUTEROL SO4 HFA INHALER IH PRN (18:07)
[2021-02-26] MEDS ORDERED: PATIENT'S OWN MEDICATION (NON-FORMULARY) (Lisinopril [Lisinopril] 40 MG Tablet) PO SCH (22:00)
[2021-02-26] MEDS: ROSUVASTATIN CA 20 MG TABLET (FP) PO SCH (22:12)
[2021-02-27] MEDS: hydrALAZINE HCL 50 MG TABLET (FP) PO SCH ×3 (06:06→21:53)
[2021-02-27] MEDS: INSULIN SLIDING SCALE (NOVOLOG) 1 VIAL SQ SCH ×4 (06:10→21:55)
[2021-02-27 07:38] LABS: EOS % 5.3 % (0-4.5); HEMATOCRIT 34.3 % (32.4-45.2); HEMOGLOBIN 10.9 GM/dL (10.7-15.3); LYMPH % 22.8 % (8-40); MCH 24.8 pg (25.7-33.7); MCHC 31.8 g/dl (32.0-36.0); MEAN CELL VOLUME 78.1 fl (80-96); MEAN PLT VOLUME 7.7 fl (7.5-11.1); MONO % 6.8 % (3.8-10.2); NEUT % 64.1 % (42.8-82.8); PLATELET COUNT 306 10^3/uL (134-434); RBC 4.39 M/mm3 (3.60-5.2); RDW 16.8 % (11.6-15.6); WHITE BLOOD COUNT 10.3 K/mm3 (4.0-10.0)
[2021-02-27 08:11] LABS: ALBUMIN 3.1 g/dl (3.4-5.0); BLOOD UREA NITROGEN 22.3 mg/dL (7-18); MAGNESIUM 1.9 mg/dL (1.8-2.4)
[2021-02-27 08:15] LABS: BILIRUBIN,TOTAL 0.5 mg/dL (0.2-1)
[2021-02-27 08:16] LABS: TOT PROT 7.1 g/dl (6.4-8.2)
[2021-02-27] MEDS ORDERED: ACETAMINOPHEN/CAFFEINE/BUTALBITAL 1 TAB PO ONE (09:40)
[2021-02-27] MEDS ORDERED: MAGNESIUM SULF 50% (8.12 MEQ/2 ML-1 GM VIAL) IVPB ONE (10:03)
[2021-02-27] MEDS ORDERED: ACETAMINOPHEN 1000 MG/100 ML VIAL (NON FORMULARY) IVPB ONE (10:10)
[2021-02-27] MEDS: FUROSEMIDE 20 MG TABLET (FP) PO SCH (10:50)
[2021-02-27] MEDS: RANOLAZINE E.R. 500 MG TABLET (FP) PO SCH ×2 (10:50→21:53)
[2021-02-27] MEDS: FLUTICASONE/SALMETEROL 100 MCG/50 MCG DISKUS IH SCH ×2 (10:50→22:00)
[2021-02-27] MEDS: ASPIRIN 81 MG CHEWABLE TABLETS PO SCH (11:00)
[2021-02-27] MEDS: ENOXAPARIN NA (PORCINE) 40 MG/0.4 ML DISP.SYRIN SQ SCH (11:00)
[2021-02-27] MEDS: LISINOPRIL 20 MG TABLET PO SCH (11:39)
[2021-02-27] MEDS: ROSUVASTATIN CA 20 MG TABLET (FP) PO SCH (21:53)
[2021-02-28] MEDS ORDERED: ACETAMINOPHEN 325 MG TABLET (FP) ONE (00:43)
[2021-02-28] MEDS ORDERED: ACETAMINOPHEN 325 MG TABLET (FP) PO ONE (00:45)
[2021-02-28] MEDS: hydrALAZINE HCL 50 MG TABLET (FP) PO SCH ×3 (06:10→21:35)
[2021-02-28] MEDS: INSULIN SLIDING SCALE (NOVOLOG) 1 VIAL SQ SCH ×4 (06:10→21:36)
[2021-02-28] MEDS: FUROSEMIDE 20 MG TABLET (FP) PO SCH (09:14)
[2021-02-28] MEDS: ASPIRIN 81 MG CHEWABLE TABLETS PO SCH (09:14)
[2021-02-28] MEDS: LISINOPRIL 20 MG TABLET PO SCH (09:15)
[2021-02-28] MEDS: RANOLAZINE E.R. 500 MG TABLET (FP) PO SCH ×2 (09:15→21:35)
[2021-02-28] MEDS: FLUTICASONE/SALMETEROL 100 MCG/50 MCG DISKUS IH SCH ×2 (09:20→21:35)
[2021-02-28] MEDS ORDERED: INSULIN (NOVOLOG) ASPART 100 UNITS/ML 10ML VIAL ONE ×2 (17:32→17:37)
[2021-02-28] MEDS ORDERED: ACETAMINOPHEN 1000 MG/100 ML VIAL (NON FORMULARY) IVPB ONE (18:33)
[2021-02-28] MEDS ORDERED: NITROGLYCERIN 2% OINTMENT - 1GM PACKET TD ONE (18:33)
[2021-02-28] MEDS: ROSUVASTATIN CA 20 MG TABLET (FP) PO SCH (21:35)
[2021-02-28] MEDS ORDERED: POLYETHYLENE GLYCOL (HEALTHYLAX) 3350 17 GM PACKET PO ONE (21:45)
[2021-02-28] MEDS ORDERED: POLYETHYLENE GLYCOL (HEALTHYLAX) 3350 17 GM PACKET PO SCH (21:45)
[2021-02-28] MEDS: SENNOSIDES 8.6MG TABLET (FP) PO SCH (21:46)
[2021-03-01] MEDS: hydrALAZINE HCL 50 MG TABLET (FP) PO SCH ×3 (06:33→21:18)
[2021-03-01] MEDS: INSULIN SLIDING SCALE (NOVOLOG) 1 VIAL SQ SCH ×4 (06:33→21:19)
[2021-03-01] MEDS ORDERED: NITROGLYCERIN 2% OINTMENT - 1GM PACKET TD ONE (07:36)
[2021-03-01] MEDS: LISINOPRIL 20 MG TABLET PO SCH (09:53)
[2021-03-01] MEDS: ASPIRIN 81 MG CHEWABLE TABLETS PO SCH (09:53)
[2021-03-01] MEDS: FUROSEMIDE 20 MG TABLET (FP) PO SCH (09:53)
[2021-03-01] MEDS: RANOLAZINE E.R. 500 MG TABLET (FP) PO SCH ×2 (09:53→21:19)
[2021-03-01] MEDS: POLYETHYLENE GLYCOL (HEALTHYLAX) 3350 17 GM PACKET PO SCH (09:54)
[2021-03-01] MEDS: FLUTICASONE/SALMETEROL 100 MCG/50 MCG DISKUS IH SCH ×2 (09:54→21:25)
[2021-03-01] MEDS ORDERED: NITROGLYCERIN 25MG/D5W 250ML 25 MG/250 ML ML IVPB SCH (12:45)
[2021-03-01] MEDS ORDERED: ACETAMINOPHEN 325 MG TABLET (FP) PO PRN (12:56)
[2021-03-01] MEDS: ENOXAPARIN NA (PORCINE) 100 MG/1 ML DISP.SYRIN SQ SCH ×2 (14:20→21:18)
[2021-03-01] MEDS ORDERED: PT OWN MED DRAWER 7, Y5N ONE (15:03)
[2021-03-01 15:06] VITALS: BMI 48.1
[2021-03-01] MEDS: ROSUVASTATIN CA 20 MG TABLET (FP) PO SCH (21:18)
[2021-03-01] MEDS: SENNOSIDES 8.6MG TABLET (FP) PO SCH (21:19)
[2021-03-02] MEDS ORDERED: ACETAMINOPHEN 1000 MG/100 ML VIAL (NON FORMULARY) IVPB ONE (02:00)
[2021-03-02] MEDS ORDERED: ACETAMINOPHEN INJECTION 100 ML IVPB ONE (02:08)
[2021-03-02] MEDS ORDERED: MAG HYDROX/AL HYDROX/SIMETH 30 ML UNIT-DOSE CUP PO ONE (04:33)
[2021-03-02] MEDS ORDERED: FAMOTIDINE 20 MG/50 ML IVPB 20 MG/50 ML MG IVPB ONE (04:33)
[2021-03-02] MEDS: hydrALAZINE HCL 50 MG TABLET (FP) PO SCH ×3 (04:58→14:23)
[2021-03-02] MEDS: INSULIN SLIDING SCALE (NOVOLOG) 1 VIAL SQ SCH ×3 (06:09→17:56)
[2021-03-02 07:37] LABS: GLUCOSE,RANDOM 275 mg/dL (74-106)
[2021-03-02] MEDS ORDERED: NITROGLYCERIN 25MG/D5W 250ML 25 MG/250 ML ML IVPB SCH ×2 (09:05→15:52)
[2021-03-02] MEDS: FUROSEMIDE 20 MG TABLET (FP) PO SCH (10:21)
[2021-03-02] MEDS: LISINOPRIL 20 MG TABLET PO SCH (10:21)
[2021-03-02] MEDS: ENOXAPARIN NA (PORCINE) 100 MG/1 ML DISP.SYRIN SQ SCH (10:21)
[2021-03-02] MEDS: ASPIRIN 81 MG CHEWABLE TABLETS PO SCH (10:21)
[2021-03-02] MEDS: FLUTICASONE/SALMETEROL 100 MCG/50 MCG DISKUS IH SCH (10:22)
[2021-03-02] MEDS: RANOLAZINE E.R. 500 MG TABLET (FP) PO SCH (10:22)
[2021-03-02] MEDS: POLYETHYLENE GLYCOL (HEALTHYLAX) 3350 17 GM PACKET PO SCH (10:22)
[2021-03-02] MEDS ORDERED: ONDANSETRON 4 MG/2 ML VIAL ONE (15:13)
[2021-03-02] MEDS ORDERED: MORPHINE SULFATE 2 MG/ML VIAL ONE (15:18)
[2021-03-02] MEDS ORDERED: MORPHINE SULFATE 2 MG/ML VIAL IVPUSH ONE (15:20)
[2021-03-02] MEDS ORDERED: PANTOPRAZOLE SODIUM 40 MG VIAL IVPUSH ONE (15:20)
[2021-03-02 18:51] VITALS: BP 120/66; PULSE 82; TEMP 97.8
== END 2021-03-02 17:40 | disposition short-term general hospital (02) | DRG 311 ==
LOC: JER 07:16 → UNDOADMOB 10:54 → INTOOBSV 10:54 → JERBED 10:54 → J4W 19:32 → OBSVTOIN 03-01 14:24
PROVIDERS: ATTEND Internal Medicine
DX: I24.9 Acute ischemic heart disease, unspecified (principal); I50.32 Chronic diastolic (congestive) heart failure; Z68.42 Body mass index [BMI] 45.0-49.9, adult; I20.0 Unstable angina; I11.0 Hypertensive heart disease with heart failure; G43.909 Migraine, unspecified, not intractable, without status migrainosus; R07.9 Chest pain, unspecified; E66.01 Morbid (severe) obesity due to excess calories; E78.5 Hyperlipidemia, unspecified
CPT/HCPCS: 36415; 71045-TC-FY; 80053; 82550; 82607; 82947; 82962; 83036; 83735; 83880; 84443; 84484; 85025; 85379; 86780; 93005; 93010; 93970-TC; 93971-TC; 99285-25; C9803; G0378; J0131; U0003; U0005

== ENCOUNTER 2022-01-25 02:29 | Inpatient (IN) | payer OTHER ==
[2022-01-25] MEDS ORDERED: NITROGLYCERIN SUBLINGUAL 1/150 0.4 MG TAB SL ONE (02:30)
[2022-01-25 03:02] VITALS: BMI 45.7
[2022-01-25 03:07] LABS: BASO % 0.8 % (0-2.0); EOS % 6.8 % (0-4.5); HEMATOCRIT 36.6 % (32.4-45.2); HEMOGLOBIN 11.6 GM/dL (10.7-15.3); LYMPH % 23.7 % (8-40); MCH 25.4 pg (25.7-33.7); MCHC 31.8 g/dl (32.0-36.0); MEAN CELL VOLUME 79.9 fl (80-96); MEAN PLT VOLUME 7.3 fl (7.5-11.1); MONO % 6.9 % (3.8-10.2); NEUT % 61.8 % (42.8-82.8); PLATELET COUNT 311 10^3/uL (134-434); RBC 4.58 M/mm3 (3.60-5.2); RDW 15.1 % (11.6-15.6); WHITE BLOOD COUNT 10.6 K/mm3 (4.0-10.0)
[2022-01-25] MEDS ORDERED: SODIUM CHLORIDE 0.9% 500 ML INFUS.BAG IV ONE (03:09)
[2022-01-25] MEDS ORDERED: METOCLOPRAMIDE HCL INJECTION 10 MG/2 ML VIAL IVPUSH ONE (03:09)
[2022-01-25 03:10] LABS: EPI CELLS 12 /uL (0-25.1); HYALINE CASTS 0 /uL (0-3.1); URINE APPEARANCE CLOUDY; URINE BACTERIA >9,000 /uL (0-1359); URINE BILIRUBIN NEGATIVE (NEGATIVE); URINE COLOR YELLOW; URINE GLUCOSE (UA) 2+ (NEGATIVE); URINE KETONE NEGATIVE (NEGATIVE); URINE LEUK ESTERASE NEGATIVE (NEGATIVE); URINE NITRITE POSITIVE (NEGATIVE); URINE PROTEIN 3+ (NEGATIVE); URINE RBC 5 /uL (0-23.9); URINE UROBILINOGEN 0.2 mg/dL (0.2-1.0); URINE WBC 16 /uL (0-25.8)
[2022-01-25] MEDS ORDERED: METOCLOPRAMIDE HCL INJECTION 10 MG/2 ML VIAL ONE (03:14)
[2022-01-25 03:26] LABS: ACTIVATED PTT 30.8 SECONDS (25.2-36.5); INR 0.93 (0.83-1.09); PROTHROMBIN TIME (PATIENT) 10.7 SEC (9.7-13.0)
[2022-01-25 03:28] LABS: ALBUMIN 3.2 g/dl (3.4-5.0); CALCIUM 9.3 mg/dL (8.5-10.1)
[2022-01-25 03:29] LABS: BLOOD UREA NITROGEN 21.1 mg/dL (7-18)
[2022-01-25 03:32] LABS: CREATININE 0.9 mg/dL (0.55-1.3)
[2022-01-25 03:33] LABS: TOT PROT 7.6 g/dl (6.4-8.2)
[2022-01-25 03:34] LABS: BILIRUBIN,TOTAL 0.4 mg/dL (0.2-1)
[2022-01-25] MEDS ORDERED: KETOROLAC TROMETHAMINE 15 MG/ML VIAL IVPUSH ONE (04:10)
[2022-01-25] MEDS ORDERED: SUMATRIPTAN SUCCINATE 6 MG/0.5 ML VIAL SQ ONE (04:12)
[2022-01-25] MEDS ORDERED: SUMATRIPTAN SUCCINATE 6 MG/0.5 ML VIAL ONE (04:20)
[2022-01-25] MEDS ORDERED: CEFTRIAXONE 1 GM/50 ML BAG ONE (04:21)
[2022-01-25] MEDS ORDERED: KETOROLAC TROMETHAMINE 15 MG/ML VIAL ONE (04:21)
[2022-01-25] MEDS ORDERED: hydrALAZINE HCL 25 MG TABLET (FP) ONE ×2 (14:00→22:12)
[2022-01-25] MEDS: hydrALAZINE HCL 25 MG TABLET (FP) PO SCH ×2 (14:05→22:33)
[2022-01-25] MEDS: INSULIN SLIDING SCALE (NOVOLOG) 1 VIAL SQ SCH (17:03)
[2022-01-25] MEDS ORDERED: ROSUVASTATIN CA 40 MG TABLET PO SCH (22:00)
[2022-01-25] MEDS: ROSUVASTATIN CA 20 MG TABLET PO SCH (22:33)
[2022-01-25] MEDS: INSULIN (LEVEMIR) 100 UNITS/ML UNITS SQ SCH (22:34)
[2022-01-26] MEDS ORDERED: hydrALAZINE HCL 25 MG TABLET (FP) ONE (06:33)
[2022-01-26] MEDS: hydrALAZINE HCL 25 MG TABLET (FP) PO SCH (06:38)
[2022-01-26 07:49] LABS: BASO % 0.8 % (0-2.0); EOS % 8.6 % (0-4.5); HEMATOCRIT 37.9 % (32.4-45.2); HEMOGLOBIN 11.9 GM/dL (10.7-15.3); LYMPH % 22.5 % (8-40); MCH 25.1 pg (25.7-33.7); MCHC 31.4 g/dl (32.0-36.0); MEAN CELL VOLUME 79.9 fl (80-96); MEAN PLT VOLUME 7.6 fl (7.5-11.1); MONO % 6.5 % (3.8-10.2); NEUT % 61.6 % (42.8-82.8); PLATELET COUNT 304 10^3/uL (134-434); RBC 4.74 M/mm3 (3.60-5.2); RDW 15.1 % (11.6-15.6)
[2022-01-26 08:23] LABS: BLOOD UREA NITROGEN 14.1 mg/dL (7-18)
[2022-01-26 08:26] LABS: CREATININE 0.7 mg/dL (0.55-1.3)
[2022-01-26 08:28] LABS: BILIRUBIN,TOTAL 0.5 mg/dL (0.2-1); TOT PROT 7.4 g/dl (6.4-8.2)
[2022-01-26] MEDS: INSULIN SLIDING SCALE (NOVOLOG) 1 VIAL SQ SCH ×3 (11:52→18:04)
[2022-01-26] MEDS ORDERED: ENOXAPARIN NA (PORCINE) 40 MG/0.4 ML DISP.SYRIN SQ ONE (11:56)
[2022-01-26] MEDS ORDERED: TOPIRAMATE 25 MG TABLET ONE (11:56)
[2022-01-26] MEDS ORDERED: ASPIRIN 81 MG CHEWABLE TABLETS ONE (11:56)
[2022-01-26] MEDS: ASPIRIN 81 MG CHEWABLE TABLETS PO SCH (12:00)
[2022-01-26] MEDS: TOPIRAMATE 25 MG TABLET PO SCH (12:00)
[2022-01-26] MEDS: ENOXAPARIN NA (PORCINE) 40 MG/0.4 ML DISP.SYRIN SQ SCH (12:14)
[2022-01-26] MEDS ORDERED: ACETAMINOPHEN/CAFFEINE/BUTALBITAL 1 TAB PO PRN (12:27)
[2022-01-26] MEDS ORDERED: PATIENT'S OWN MEDICATION (NON-FORMULARY) (Lisinopril [Lisinopril] 40 MG Tablet) PO SCH (13:00)
[2022-01-26] MEDS ORDERED: METOCLOPRAMIDE HCL INJECTION 10 MG/2 ML VIAL ONE (13:25)
[2022-01-26] MEDS ORDERED: hydrALAZINE HCL 50 MG TABLET (FP) ONE (13:25)
[2022-01-26] MEDS ORDERED: FUROSEMIDE 20 MG TABLET (FP) ONE (13:25)
[2022-01-26] MEDS ORDERED: LISINOPRIL 20 MG TABLET ONE (13:25)
[2022-01-26] MEDS: FUROSEMIDE 20 MG TABLET (FP) PO SCH (13:37)
[2022-01-26] MEDS: LISINOPRIL 20 MG TABLET PO SCH (13:38)
[2022-01-26] MEDS: hydrALAZINE HCL 50 MG TABLET (FP) PO SCH ×2 (13:38→22:13)
[2022-01-26] MEDS: METOCLOPRAMIDE HCL INJECTION 10 MG/2 ML VIAL IVPUSH SCH (15:23)
[2022-01-26] MEDS: ROSUVASTATIN CA 20 MG TABLET PO SCH (22:13)
[2022-01-26] MEDS: RANOLAZINE E.R. 500 MG TABLET (FP) PO SCH (22:14)
[2022-01-26] MEDS: INSULIN (LEVEMIR) 100 UNITS/ML UNITS SQ SCH (22:14)
[2022-01-26] MEDS: FLUTICASONE/SALMETEROL 100 MCG/50 MCG DISKUS IH SCH (22:18)
[2022-01-27] MEDS: METOCLOPRAMIDE HCL INJECTION 10 MG/2 ML VIAL IVPUSH SCH ×2 (01:09→12:12)
[2022-01-27] MEDS: INSULIN SLIDING SCALE (NOVOLOG) 1 VIAL SQ SCH ×2 (06:04→11:09)
[2022-01-27] MEDS: hydrALAZINE HCL 50 MG TABLET (FP) PO SCH (06:05)
[2022-01-27 06:52] VITALS: PULSE 88
[2022-01-27 06:52] LABS: BASO % 0.6 % (0-2.0); EOS % 7.4 % (0-4.5); HEMATOCRIT 35.1 % (32.4-45.2); HEMOGLOBIN 11.4 GM/dL (10.7-15.3); LYMPH % 22.1 % (8-40); MCH 25.9 pg (25.7-33.7); MCHC 32.5 g/dl (32.0-36.0); MEAN CELL VOLUME 79.8 fl (80-96); MEAN PLT VOLUME 7.7 fl (7.5-11.1); NEUT % 63.9 % (42.8-82.8); PLATELET COUNT 288 10^3/uL (134-434); RDW 15.3 % (11.6-15.6); WHITE BLOOD COUNT 10.1 K/mm3 (4.0-10.0)
[2022-01-27 07:16] LABS: CALCIUM 9.2 mg/dL (8.5-10.1)
[2022-01-27 07:17] LABS: BLOOD UREA NITROGEN 15.5 mg/dL (7-18); MAGNESIUM 1.9 mg/dL (1.8-2.4)
[2022-01-27 07:20] LABS: CREATININE 0.8 mg/dL (0.55-1.3)
[2022-01-27 07:21] LABS: BILIRUBIN,TOTAL 0.5 mg/dL (0.2-1); TOT PROT 7.2 g/dl (6.4-8.2)
[2022-01-27] MEDS ORDERED: POLYETHYLENE GLYCOL (HEALTHYLAX) 3350 17 GM PACKET PO SCH (10:00)
[2022-01-27] MEDS: RANOLAZINE E.R. 500 MG TABLET (FP) PO SCH (10:55)
[2022-01-27] MEDS: ASPIRIN 81 MG CHEWABLE TABLETS PO SCH (10:55)
[2022-01-27] MEDS: FLUTICASONE/SALMETEROL 100 MCG/50 MCG DISKUS IH SCH (10:55)
[2022-01-27] MEDS: LISINOPRIL 20 MG TABLET PO SCH (10:55)
[2022-01-27] MEDS: ENOXAPARIN NA (PORCINE) 40 MG/0.4 ML DISP.SYRIN SQ SCH (10:55)
[2022-01-27] MEDS: FUROSEMIDE 20 MG TABLET (FP) PO SCH (10:55)
[2022-01-27 11:03] LABS: ERYTHROCYTE SEDIMENTATION RATE 89 mm/hr (0-30)
[2022-01-27 11:52] VITALS: BP 147/66; TEMP 98.6
[2022-01-27] MEDS: TOPIRAMATE 25 MG TABLET PO SCH (12:12)
== END 2022-01-27 14:29 | disposition home or self-care (01) | DRG 103 ==
LOC: JER 02:29 → JERBED 07:51 → J4W 01-26 17:56
PROVIDERS: ADMIT Internal Medicine; ATTEND Nurse Practitioner Acute Care
DX: G43.909 Migraine, unspecified, not intractable, without status migrainosus (principal); I50.32 Chronic diastolic (congestive) heart failure; N30.01 Acute cystitis with hematuria; E11.9 Type 2 diabetes mellitus without complications; E78.5 Hyperlipidemia, unspecified; J45.909 Unspecified asthma, uncomplicated; I16.0 Hypertensive urgency; Z79.4 Long term (current) use of insulin; E11.40 Type 2 diabetes mellitus with diabetic neuropathy, unspecified; H53.8 Other visual disturbances; I11.0 Hypertensive heart disease with heart failure
CPT/HCPCS: 36415; 70450-TC; 70553-TC; 80053; 80061; 81003; 82962; 83036; 83735; 84484; 85025; 85610; 85651; 85730; 86140; 86850; 86900; 86901; 93005; 93010; 97116-GP; 97162-GP; 99285-25; A9579; C9803-CS; U0003; U0005

== ENCOUNTER 2023-01-27 08:14 | Inpatient (IN) | payer OTHER ==
[2023-01-27] MEDS ORDERED: SODIUM CHLORIDE 0.9% 500 ML INFUS.BAG IV ONE (09:24)
[2023-01-27] MEDS ORDERED: ALBUTEROL SO4 2.5/IPRATROPIUM 0.5 INH SOL 3 ML VIAL.NEB. NEB ONE ×2 (09:24→09:45)
[2023-01-27] MEDS ORDERED: ASPIRIN 325 MG TABLET PO ONE (09:25)
[2023-01-27] MEDS ORDERED: FUROSEMIDE 40 MG/4 ML INJECTABLE VIAL IVPUSH ONE (09:25)
[2023-01-27] MEDS ORDERED: FUROSEMIDE 40 MG/4 ML INJECTABLE VIAL ONE (09:45)
[2023-01-27] MEDS ORDERED: ASPIRIN 325 MG TABLET ONE (09:45)
[2023-01-27 09:58] LABS: VENOUS BASE EXCESS 4.2 mmol/L (-2-2); VENOUS O2 SATURATION 63.4 % (70-80); VENOUS PCO2 56.7 mmHg (38-52); VENOUS PH 7.357 (7.310-7.410)
[2023-01-27 10:00] LABS: BASO % 0.5 % (0-2.0); EOS % 9.1 % (0-4.5); HEMATOCRIT 37.7 % (32.4-45.2); LYMPH % 19.1 % (8-40); MCH 25.2 pg (25.7-33.7); MCHC 31.9 g/dl (32.0-36.0); MEAN CELL VOLUME 78.9 fl (80-96); MEAN PLT VOLUME 7.7 fl (7.5-11.1); MONO % 6.3 % (3.8-10.2); PLATELET COUNT 336 10^3/uL (134-434); RBC 4.78 M/mm3 (3.60-5.2); RDW 16.1 % (11.6-15.6); WHITE BLOOD COUNT 10.8 K/mm3 (4.0-10.0)
[2023-01-27 10:12] LABS: CALCIUM 9.4 mg/dL (8.5-10.1)
[2023-01-27 10:13] LABS: BLOOD UREA NITROGEN 16.4 mg/dL (7-18)
[2023-01-27 10:18] LABS: BILIRUBIN,TOTAL 0.3 mg/dL (0.2-1); TOT PROT 7.5 g/dl (6.4-8.2)
[2023-01-27 10:21] LABS: N-TERMINAL BNP 98.6 pg/ml (5-125)
[2023-01-27] MEDS ORDERED: ALBUTEROL SO4 0.083% IH SOL 2.5 MG/3 ML VIAL.NEB. NEB PRN (12:00)
[2023-01-27] MEDS ORDERED: MECLIZINE HCL 25 MG TABLET (FP) PO PRN (12:00)
[2023-01-27] MEDS: hydrALAZINE HCL 50 MG TABLET (FP) PO SCH ×2 (15:00→21:10)
[2023-01-27] MEDS: INSULIN SLIDING SCALE (NOVOLOG) 1 VIAL SQ SCH ×2 (17:28→21:51)
[2023-01-27 18:29] VITALS: BMI 50.3
[2023-01-27 20:48] LABS: EPI CELLS 7 /uL (0-25.1); HYALINE CASTS 1 /uL (0-3.1); PH,URINE 5.5 (5.0-8.0); URINE APPEARANCE CLEAR; URINE BACTERIA >9,000 /uL (0-1359); URINE BILIRUBIN NEGATIVE (NEGATIVE); URINE COLOR YELLOW; URINE GLUCOSE (UA) NEGATIVE (NEGATIVE); URINE KETONE NEGATIVE (NEGATIVE); URINE LEUK ESTERASE NEGATIVE (NEGATIVE); URINE NITRITE NEGATIVE (NEGATIVE); URINE PROTEIN 2+ (NEGATIVE); URINE RBC 7 /uL (0-23.9); URINE UROBILINOGEN 0.2 mg/dL (0.2-1.0); URINE WBC 9 /uL (0-25.8)
[2023-01-27] MEDS: ROSUVASTATIN CA 20 MG TABLET PO SCH (21:09)
[2023-01-27] MEDS: RANOLAZINE E.R. 500 MG TABLET (FP) PO SCH (21:09)
[2023-01-28] MEDS: hydrALAZINE HCL 50 MG TABLET (FP) PO SCH ×3 (05:53→23:12)
[2023-01-28] MEDS ORDERED: INSULIN (NOVOLOG) ASPART 100 UNITS/ML 10ML VIAL ONE (06:00)
[2023-01-28] MEDS: INSULIN SLIDING SCALE (NOVOLOG) 1 VIAL SQ SCH ×4 (06:10→23:17)
[2023-01-28 08:16] LABS: BASO % 0.9 % (0-2.0); EOS % 11.1 % (0-4.5); HEMATOCRIT 37.1 % (32.4-45.2); HEMOGLOBIN 11.8 GM/dL (10.7-15.3); LYMPH % 18.8 % (8-40); MCH 25.6 pg (25.7-33.7); MCHC 31.7 g/dl (32.0-36.0); MEAN CELL VOLUME 80.6 fl (80-96); NEUT % 63.2 % (42.8-82.8); PLATELET COUNT 323 10^3/uL (134-434); RBC 4.59 M/mm3 (3.60-5.2); RDW 15.9 % (11.6-15.6); WHITE BLOOD COUNT 11.4 K/mm3 (4.0-10.0)
[2023-01-28 08:20] LABS: POTASSIUM 5.1 mmol/L (3.5-5.1)
[2023-01-28 08:32] LABS: CALCIUM 9.4 mg/dL (8.5-10.1)
[2023-01-28 08:33] LABS: ALBUMIN 2.7 g/dl (3.4-5.0)
[2023-01-28 08:34] LABS: BLOOD UREA NITROGEN 21.4 mg/dL (7-18)
[2023-01-28 08:36] LABS: CREATININE 1.1 mg/dL (0.55-1.3)
[2023-01-28 08:37] LABS: BILIRUBIN,TOTAL 0.4 mg/dL (0.2-1)
[2023-01-28 08:39] LABS: PHOSPHOROUS 4.7 mg/dL (2.5-4.9)
[2023-01-28 08:40] LABS: MAGNESIUM 1.7 mg/dL (1.8-2.4)
[2023-01-28] MEDS ORDERED: LISINOPRIL 20 MG TABLET PO SCH (10:00)
[2023-01-28] MEDS: RANOLAZINE E.R. 500 MG TABLET (FP) PO SCH ×2 (10:03→23:12)
[2023-01-28] MEDS: ENOXAPARIN NA (PORCINE) 40 MG/0.4 ML DISP.SYRIN SQ SCH (10:03)
[2023-01-28] MEDS: ASPIRIN 81 MG CHEWABLE TABLETS PO SCH (10:03)
[2023-01-28] MEDS: CEFTRIAXONE 1 GM in DEXTROSE 5%-WATER - 50 ML IVPB SCH (11:20)
[2023-01-28] MEDS: POLYETHYLENE GLYCOL (HEALTHYLAX) 3350 17 GM PACKET PO SCH ×2 (11:21→23:12)
[2023-01-28] MEDS: AZITHROMYCIN IVPB 500 MG/250 ML BAG IVPB SCH (12:48)
[2023-01-28] MEDS: ROSUVASTATIN CA 20 MG TABLET PO SCH (23:12)
[2023-01-28] MEDS: INSULIN (LEVEMIR) 100 UNITS/ML UNITS SQ SCH (23:17)
[2023-01-29] MEDS: hydrALAZINE HCL 50 MG TABLET (FP) PO SCH ×3 (06:37→22:43)
[2023-01-29] MEDS: INSULIN SLIDING SCALE (NOVOLOG) 1 VIAL SQ SCH ×4 (06:39→22:54)
[2023-01-29] MEDS: INSULIN (LEVEMIR) 100 UNITS/ML UNITS SQ SCH ×2 (06:39→22:55)
[2023-01-29 07:39] LABS: BASO % 0.6 % (0-2.0); EOS % 11.7 % (0-4.5); HEMATOCRIT 35.1 % (32.4-45.2); HEMOGLOBIN 11.2 GM/dL (10.7-15.3); LYMPH % 19.5 % (8-40); MCH 25.3 pg (25.7-33.7); MCHC 31.8 g/dl (32.0-36.0); MEAN CELL VOLUME 79.8 fl (80-96); MEAN PLT VOLUME 8.2 fl (7.5-11.1); MONO % 6.8 % (3.8-10.2); NEUT % 61.4 % (42.8-82.8); PLATELET COUNT 279 10^3/uL (134-434); WHITE BLOOD COUNT 11.2 K/mm3 (4.0-10.0)
[2023-01-29 07:49] LABS: POTASSIUM 5.4 mmol/L (3.5-5.1)
[2023-01-29 07:59] LABS: CALCIUM 8.8 mg/dL (8.5-10.1)
[2023-01-29 08:00] LABS: ALBUMIN 2.7 g/dl (3.4-5.0); BLOOD UREA NITROGEN 33.4 mg/dL (7-18); MAGNESIUM 2.1 mg/dL (1.8-2.4)
[2023-01-29 08:03] LABS: CREATININE 1.4 mg/dL (0.55-1.3); PHOSPHOROUS 4.6 mg/dL (2.5-4.9)
[2023-01-29 08:04] LABS: BILIRUBIN,TOTAL 0.4 mg/dL (0.2-1); TOT PROT 6.8 g/dl (6.4-8.2)
[2023-01-29] MEDS: CEFTRIAXONE 1 GM in DEXTROSE 5%-WATER - 50 ML IVPB SCH (10:55)
[2023-01-29] MEDS: ASPIRIN 81 MG CHEWABLE TABLETS PO SCH (10:56)
[2023-01-29] MEDS: POLYETHYLENE GLYCOL (HEALTHYLAX) 3350 17 GM PACKET PO SCH ×2 (10:56→22:43)
[2023-01-29] MEDS: RANOLAZINE E.R. 500 MG TABLET (FP) PO SCH ×2 (10:56→22:43)
[2023-01-29] MEDS: ENOXAPARIN NA (PORCINE) 40 MG/0.4 ML DISP.SYRIN SQ SCH (10:56)
[2023-01-29] MEDS: amLODIPine BESYLATE 10 MG TABLET (FP) PO SCH (10:57)
[2023-01-29] MEDS: AZITHROMYCIN IVPB 500 MG/250 ML BAG IVPB SCH (12:08)
[2023-01-29] MEDS ORDERED: INSULIN (NOVOLOG) ASPART 100 UNITS/ML 10ML VIAL ONE (12:19)
[2023-01-29] MEDS ORDERED: ONDANSETRON 4 MG/2 ML VIAL IVPUSH ONE (13:09)
[2023-01-29] MEDS ORDERED: MECLIZINE HCL 25 MG TABLET (FP) PO PRN (18:09)
[2023-01-29] MEDS: ROSUVASTATIN CA 20 MG TABLET PO SCH (22:43)
[2023-01-30] MEDS: ACETAMINOPHEN 325 MG TABLET (FP) PO PRN (00:59)
[2023-01-30] MEDS: hydrALAZINE HCL 50 MG TABLET (FP) PO SCH ×4 (06:32→22:03)
[2023-01-30] MEDS ORDERED: INSULIN (NOVOLOG) ASPART 100 UNITS/ML 10ML VIAL ONE ×4 (06:38→18:20)
[2023-01-30] MEDS: INSULIN SLIDING SCALE (NOVOLOG) 1 VIAL SQ SCH ×4 (06:39→23:44)
[2023-01-30] MEDS: INSULIN (LEVEMIR) 100 UNITS/ML UNITS SQ SCH ×2 (06:41→23:44)
[2023-01-30 09:49] LABS: BASO % 0.7 % (0-2.0); EOS % 9.9 % (0-4.5); HEMATOCRIT 33.9 % (32.4-45.2); HEMOGLOBIN 10.9 GM/dL (10.7-15.3); MCH 25.4 pg (25.7-33.7); MCHC 32.1 g/dl (32.0-36.0); MEAN CELL VOLUME 79.1 fl (80-96); MEAN PLT VOLUME 7.3 fl (7.5-11.1); MONO % 6.4 % (3.8-10.2); PLATELET COUNT 301 10^3/uL (134-434); RBC 4.29 M/mm3 (3.60-5.2); WHITE BLOOD COUNT 10.5 K/mm3 (4.0-10.0)
[2023-01-30] MEDS ORDERED: INSULIN (LEVEMIR) 100 UNITS/ML UNITS SQ ONE (09:54)
[2023-01-30] MEDS: POLYETHYLENE GLYCOL (HEALTHYLAX) 3350 17 GM PACKET PO SCH ×2 (10:05→22:03)
[2023-01-30] MEDS: ASPIRIN 81 MG CHEWABLE TABLETS PO SCH (10:05)
[2023-01-30] MEDS: amLODIPine BESYLATE 10 MG TABLET (FP) PO SCH (10:05)
[2023-01-30] MEDS: RANOLAZINE E.R. 500 MG TABLET (FP) PO SCH ×2 (10:06→22:03)
[2023-01-30] MEDS: CEFTRIAXONE 1 GM in DEXTROSE 5%-WATER - 50 ML IVPB SCH (10:06)
[2023-01-30] MEDS: ENOXAPARIN NA (PORCINE) 40 MG/0.4 ML DISP.SYRIN SQ SCH (10:07)
[2023-01-30 10:11] LABS: POTASSIUM 5.7 mmol/L (3.5-5.1)
[2023-01-30 10:17] LABS: ALBUMIN 2.8 g/dl (3.4-5.0); CALCIUM 8.9 mg/dL (8.5-10.1)
[2023-01-30 10:18] LABS: BLOOD UREA NITROGEN 40.4 mg/dL (7-18); MAGNESIUM 2.4 mg/dL (1.8-2.4)
[2023-01-30 10:20] LABS: PHOSPHOROUS 5.2 mg/dL (2.5-4.9)
[2023-01-30 10:21] LABS: BILIRUBIN,TOTAL 0.5 mg/dL (0.2-1); CREATININE 1.6 mg/dL (0.55-1.3)
[2023-01-30 10:22] LABS: TOT PROT 6.9 g/dl (6.4-8.2)
[2023-01-30] MEDS: AZITHROMYCIN IVPB 500 MG/250 ML BAG IVPB SCH (10:48)
[2023-01-30] MEDS: SODIUM ZIRCONIUM CYCLOSILICATE (LOKELMA) 5 GM PACKET PO SCH (12:14)
[2023-01-30] MEDS: SODIUM CHLORIDE 1,000 ML IV SCH ×2 (12:15→23:52)
[2023-01-30] MEDS: ROSUVASTATIN CA 20 MG TABLET PO SCH (22:03)
[2023-01-31] MEDS: hydrALAZINE HCL 50 MG TABLET (FP) PO SCH ×3 (06:30→22:49)
[2023-01-31] MEDS: INSULIN (LEVEMIR) 100 UNITS/ML UNITS SQ SCH ×2 (06:30→22:54)
[2023-01-31] MEDS: INSULIN SLIDING SCALE (NOVOLOG) 1 VIAL SQ SCH ×4 (06:31→22:54)
[2023-01-31 08:34] LABS: BASO % 0.3 % (0-2.0); EOS % 5.4 % (0-4.5); HEMOGLOBIN 10.7 GM/dL (10.7-15.3); LYMPH % 11.4 % (8-40); MCH 24.8 pg (25.7-33.7); MCHC 31.5 g/dl (32.0-36.0); MEAN CELL VOLUME 78.8 fl (80-96); MEAN PLT VOLUME 8.1 fl (7.5-11.1); MONO % 7.1 % (3.8-10.2); NEUT % 75.8 % (42.8-82.8); PLATELET COUNT 279 10^3/uL (134-434); RBC 4.31 M/mm3 (3.60-5.2); RDW 16.3 % (11.6-15.6); WHITE BLOOD COUNT 13.7 K/mm3 (4.0-10.0)
[2023-01-31 08:54] LABS: POTASSIUM 5.4 mmol/L (3.5-5.1)
[2023-01-31 08:56] LABS: CALCIUM 8.9 mg/dL (8.5-10.1)
[2023-01-31 08:57] LABS: BLOOD UREA NITROGEN 28.8 mg/dL (7-18)
[2023-01-31 09:01] LABS: CREATININE 1.2 mg/dL (0.55-1.3)
[2023-01-31] MEDS: POLYETHYLENE GLYCOL (HEALTHYLAX) 3350 17 GM PACKET PO SCH ×2 (09:44→22:49)
[2023-01-31] MEDS: ENOXAPARIN NA (PORCINE) 40 MG/0.4 ML DISP.SYRIN SQ SCH (09:44)
[2023-01-31] MEDS: RANOLAZINE E.R. 500 MG TABLET (FP) PO SCH ×2 (09:45→22:49)
[2023-01-31] MEDS: ASPIRIN 81 MG CHEWABLE TABLETS PO SCH (09:45)
[2023-01-31] MEDS: SODIUM ZIRCONIUM CYCLOSILICATE (LOKELMA) 5 GM PACKET PO SCH (09:45)
[2023-01-31] MEDS: amLODIPine BESYLATE 10 MG TABLET (FP) PO SCH (09:45)
[2023-01-31] MEDS: CEFTRIAXONE 1 GM in DEXTROSE 5%-WATER - 50 ML IVPB SCH (09:45)
[2023-01-31] MEDS: AZITHROMYCIN IVPB 500 MG/250 ML BAG IVPB SCH (09:47)
[2023-01-31] MEDS ORDERED: BISACODYL 10 MG SUPP.RECT PR ONE (11:15)
[2023-01-31] MEDS: SODIUM CHLORIDE 1,000 ML IV SCH (14:29)
[2023-01-31] MEDS: ROSUVASTATIN CA 20 MG TABLET PO SCH (22:49)
[2023-02-01] MEDS: ALBUTEROL SO4 0.083% IH SOL 2.5 MG/3 ML VIAL.NEB. NEB PRN (00:56)
[2023-02-01] MEDS: hydrALAZINE HCL 50 MG TABLET (FP) PO SCH ×3 (05:41→21:58)
[2023-02-01] MEDS: INSULIN (LEVEMIR) 100 UNITS/ML UNITS SQ SCH ×2 (06:02→22:03)
[2023-02-01] MEDS: INSULIN SLIDING SCALE (NOVOLOG) 1 VIAL SQ SCH ×4 (06:03→22:03)
[2023-02-01] MEDS ORDERED: INSULIN (NOVOLOG) ASPART 100 UNITS/ML 10ML VIAL ONE ×3 (07:45→17:02)
[2023-02-01] MEDS ORDERED: INSULIN (LEVEMIR) 100 UNITS/ML UNITS SQ ONE (07:45)
[2023-02-01 09:00] LABS: BASO % 0.6 % (0-2.0); EOS % 2.1 % (0-4.5); HEMATOCRIT 32.5 % (32.4-45.2); HEMOGLOBIN 9.9 GM/dL (10.7-15.3); LYMPH % 11.4 % (8-40); MCH 24.5 pg (25.7-33.7); MCHC 30.4 g/dl (32.0-36.0); MEAN CELL VOLUME 80.5 fl (80-96); MEAN PLT VOLUME 8.5 fl (7.5-11.1); MONO % 8.1 % (3.8-10.2); NEUT % 77.8 % (42.8-82.8); PLATELET COUNT 268 10^3/uL (134-434); RBC 4.03 M/mm3 (3.60-5.2); RDW 15.8 % (11.6-15.6); WHITE BLOOD COUNT 11.4 K/mm3 (4.0-10.0)
[2023-02-01 09:12] LABS: INR 1.21 (0.83-1.09)
[2023-02-01 09:15] LABS: ACTIVATED PTT 27.8 SECONDS (25.2-36.5)
[2023-02-01 09:19] LABS: POTASSIUM 4.7 mmol/L (3.5-5.1)
[2023-02-01 09:21] LABS: CALCIUM 8.6 mg/dL (8.5-10.1)
[2023-02-01 09:22] LABS: ALBUMIN 2.5 g/dl (3.4-5.0); BLOOD UREA NITROGEN 16.6 mg/dL (7-18)
[2023-02-01 09:25] LABS: CREATININE 1.1 mg/dL (0.55-1.3); PHOSPHOROUS 3.4 mg/dL (2.5-4.9)
[2023-02-01 09:26] LABS: BILIRUBIN,TOTAL 0.7 mg/dL (0.2-1); TOT PROT 6.8 g/dl (6.4-8.2)
[2023-02-01] MEDS: AZITHROMYCIN IVPB 500 MG/250 ML BAG IVPB SCH (09:49)
[2023-02-01] MEDS: CEFTRIAXONE 1 GM in DEXTROSE 5%-WATER - 50 ML IVPB SCH (09:49)
[2023-02-01] MEDS: ENOXAPARIN NA (PORCINE) 40 MG/0.4 ML DISP.SYRIN SQ SCH (09:50)
[2023-02-01] MEDS: POLYETHYLENE GLYCOL (HEALTHYLAX) 3350 17 GM PACKET PO SCH ×2 (09:50→21:58)
[2023-02-01] MEDS: RANOLAZINE E.R. 500 MG TABLET (FP) PO SCH ×2 (09:51→21:58)
[2023-02-01] MEDS: SODIUM ZIRCONIUM CYCLOSILICATE (LOKELMA) 5 GM PACKET PO SCH (09:51)
[2023-02-01] MEDS: amLODIPine BESYLATE 10 MG TABLET (FP) PO SCH (09:51)
[2023-02-01] MEDS: ASPIRIN 81 MG CHEWABLE TABLETS PO SCH (09:51)
[2023-02-01] MEDS: ROSUVASTATIN CA 20 MG TABLET PO SCH (21:57)
[2023-02-02] MEDS: ALBUTEROL SO4 0.083% IH SOL 2.5 MG/3 ML VIAL.NEB. NEB PRN (01:09)
[2023-02-02] MEDS: INSULIN SLIDING SCALE (NOVOLOG) 1 VIAL SQ SCH ×4 (06:16→22:46)
[2023-02-02] MEDS: INSULIN (LEVEMIR) 100 UNITS/ML UNITS SQ SCH ×2 (06:24→22:47)
[2023-02-02] MEDS: hydrALAZINE HCL 50 MG TABLET (FP) PO SCH ×3 (06:24→22:46)
[2023-02-02] MEDS: ENOXAPARIN NA (PORCINE) 40 MG/0.4 ML DISP.SYRIN SQ SCH (10:07)
[2023-02-02] MEDS: SODIUM ZIRCONIUM CYCLOSILICATE (LOKELMA) 5 GM PACKET PO SCH (10:07)
[2023-02-02] MEDS: amLODIPine BESYLATE 10 MG TABLET (FP) PO SCH (10:08)
[2023-02-02] MEDS: CEFTRIAXONE 1 GM in DEXTROSE 5%-WATER - 50 ML IVPB SCH (10:08)
[2023-02-02] MEDS: AZITHROMYCIN IVPB 500 MG/250 ML BAG IVPB SCH (10:08)
[2023-02-02] MEDS: RANOLAZINE E.R. 500 MG TABLET (FP) PO SCH ×2 (10:08→22:46)
[2023-02-02] MEDS: ASPIRIN 81 MG CHEWABLE TABLETS PO SCH (10:08)
[2023-02-02] MEDS: POLYETHYLENE GLYCOL (HEALTHYLAX) 3350 17 GM PACKET PO SCH ×2 (10:09→22:47)
[2023-02-02] MEDS: ACETAMINOPHEN 325 MG TABLET (FP) PO PRN (16:17)
[2023-02-02] MEDS ORDERED: FAMOTIDINE 20 MG/50 ML IVPB 20 MG/50 ML MG IVPB ONE (18:17)
[2023-02-02] MEDS ORDERED: INSULIN (NOVOLOG) ASPART 100 UNITS/ML 10ML VIAL ONE ×2 (19:17→22:13)
[2023-02-02] MEDS: ROSUVASTATIN CA 20 MG TABLET PO SCH (22:46)
[2023-02-03] MEDS: hydrALAZINE HCL 50 MG TABLET (FP) PO SCH ×3 (06:08→21:39)
[2023-02-03] MEDS: INSULIN SLIDING SCALE (NOVOLOG) 1 VIAL SQ SCH ×4 (06:08→22:09)
[2023-02-03] MEDS: INSULIN (LEVEMIR) 100 UNITS/ML UNITS SQ SCH ×2 (06:08→22:10)
[2023-02-03 07:31] LABS: HEMATOCRIT 31.8 % (32.4-45.2); MCH 25.1 pg (25.7-33.7); MCHC 31.3 g/dl (32.0-36.0); MEAN PLT VOLUME 8.3 fl (7.5-11.1); PLATELET COUNT 328 10^3/uL (134-434); RBC 3.98 M/mm3 (3.60-5.2); RDW 15.8 % (11.6-15.6); WHITE BLOOD COUNT 10.7 K/mm3 (4.0-10.0)
[2023-02-03 07:59] LABS: POTASSIUM 4.5 mmol/L (3.5-5.1)
[2023-02-03 08:01] LABS: ALBUMIN 2.7 g/dl (3.4-5.0); CALCIUM 8.5 mg/dL (8.5-10.1)
[2023-02-03 08:02] LABS: BLOOD UREA NITROGEN 22.6 mg/dL (7-18)
[2023-02-03 08:04] LABS: CREATININE 1.3 mg/dL (0.55-1.3)
[2023-02-03 08:06] LABS: BILIRUBIN,TOTAL 0.5 mg/dL (0.2-1)
[2023-02-03] MEDS: amLODIPine BESYLATE 10 MG TABLET (FP) PO SCH (10:09)
[2023-02-03] MEDS: ENOXAPARIN NA (PORCINE) 40 MG/0.4 ML DISP.SYRIN SQ SCH (10:09)
[2023-02-03] MEDS: RANOLAZINE E.R. 500 MG TABLET (FP) PO SCH ×2 (10:09→21:39)
[2023-02-03] MEDS: ASPIRIN 81 MG CHEWABLE TABLETS PO SCH (10:10)
[2023-02-03] MEDS: POLYETHYLENE GLYCOL (HEALTHYLAX) 3350 17 GM PACKET PO SCH ×2 (10:10→21:38)
[2023-02-03] MEDS: CEFTRIAXONE 1 GM in DEXTROSE 5%-WATER - 50 ML IVPB SCH (10:10)
[2023-02-03] MEDS: SODIUM ZIRCONIUM CYCLOSILICATE (LOKELMA) 5 GM PACKET PO SCH (10:10)
[2023-02-03] MEDS: AZITHROMYCIN 250 MG TABLET PO SCH (10:18)
[2023-02-03] MEDS ORDERED: INSULIN (NOVOLOG) ASPART 100 UNITS/ML 10ML VIAL ONE ×2 (11:08→21:36)
[2023-02-03] MEDS ORDERED: ONDANSETRON 4 MG/2 ML VIAL IVPUSH PRN (14:39)
[2023-02-03] MEDS: FAMOTIDINE 20 MG/50 ML IVPB 20 MG/50 ML MG IVPB SCH (15:07)
[2023-02-03] MEDS: ROSUVASTATIN CA 20 MG TABLET PO SCH (21:39)
[2023-02-04] MEDS: hydrALAZINE HCL 50 MG TABLET (FP) PO SCH ×3 (06:06→22:31)
[2023-02-04] MEDS: INSULIN (LEVEMIR) 100 UNITS/ML UNITS SQ SCH ×2 (06:14→22:34)
[2023-02-04] MEDS: INSULIN SLIDING SCALE (NOVOLOG) 1 VIAL SQ SCH ×4 (06:15→22:34)
[2023-02-04] MEDS ORDERED: INSULIN (NOVOLOG) ASPART 100 UNITS/ML 10ML VIAL ONE ×3 (07:28→21:13)
[2023-02-04] MEDS ORDERED: INSULIN (LEVEMIR) 100 UNITS/ML UNITS SQ ONE (07:29)
[2023-02-04] MEDS: FAMOTIDINE 20 MG/50 ML IVPB 20 MG/50 ML MG IVPB SCH (10:25)
[2023-02-04] MEDS: SODIUM ZIRCONIUM CYCLOSILICATE (LOKELMA) 5 GM PACKET PO SCH (10:25)
[2023-02-04] MEDS: ENOXAPARIN NA (PORCINE) 40 MG/0.4 ML DISP.SYRIN SQ SCH ×2 (10:25→22:31)
[2023-02-04] MEDS: amLODIPine BESYLATE 10 MG TABLET (FP) PO SCH (10:26)
[2023-02-04] MEDS: ASPIRIN 81 MG CHEWABLE TABLETS PO SCH (10:26)
[2023-02-04] MEDS: RANOLAZINE E.R. 500 MG TABLET (FP) PO SCH ×2 (10:26→22:32)
[2023-02-04] MEDS: POLYETHYLENE GLYCOL (HEALTHYLAX) 3350 17 GM PACKET PO SCH ×2 (10:26→22:31)
[2023-02-04] MEDS: AZITHROMYCIN 250 MG TABLET PO SCH (11:07)
[2023-02-04] MEDS ORDERED: FUROSEMIDE 40 MG TABLET (FP) PO ONE (17:10)
[2023-02-04 17:49] LABS: POTASSIUM 5.3 mmol/L (3.5-5.1)
[2023-02-04 17:51] LABS: CALCIUM 8.5 mg/dL (8.5-10.1)
[2023-02-04 17:52] LABS: ALBUMIN 2.7 g/dl (3.4-5.0); BLOOD UREA NITROGEN 26.2 mg/dL (7-18)
[2023-02-04 17:55] LABS: CREATININE 1.6 mg/dL (0.55-1.3)
[2023-02-04 17:56] LABS: TOT PROT 7.2 g/dl (6.4-8.2)
[2023-02-04 17:57] LABS: BILIRUBIN,TOTAL 0.4 mg/dL (0.2-1)
[2023-02-04] MEDS: ROSUVASTATIN CA 20 MG TABLET PO SCH (22:31)
[2023-02-05] MEDS: hydrALAZINE HCL 50 MG TABLET (FP) PO SCH ×3 (06:17→21:32)
[2023-02-05] MEDS: INSULIN SLIDING SCALE (NOVOLOG) 1 VIAL SQ SCH ×4 (06:18→22:22)
[2023-02-05] MEDS: INSULIN (LEVEMIR) 100 UNITS/ML UNITS SQ SCH ×2 (06:18→21:31)
[2023-02-05] MEDS: ALBUTEROL SO4 2.5/IPRATROPIUM 0.5 INH SOL 3 ML VIAL.NEB. NEB SCH ×4 (09:10→20:30)
[2023-02-05] MEDS: ASPIRIN 81 MG CHEWABLE TABLETS PO SCH (09:39)
[2023-02-05] MEDS: RANOLAZINE E.R. 500 MG TABLET (FP) PO SCH ×2 (09:39→21:32)
[2023-02-05] MEDS: amLODIPine BESYLATE 10 MG TABLET (FP) PO SCH (09:39)
[2023-02-05] MEDS: POLYETHYLENE GLYCOL (HEALTHYLAX) 3350 17 GM PACKET PO SCH ×2 (09:40→21:33)
[2023-02-05] MEDS: SODIUM ZIRCONIUM CYCLOSILICATE (LOKELMA) 5 GM PACKET PO SCH (09:40)
[2023-02-05] MEDS: AZITHROMYCIN 250 MG TABLET PO SCH (09:40)
[2023-02-05] MEDS: ENOXAPARIN NA (PORCINE) 40 MG/0.4 ML DISP.SYRIN SQ SCH ×2 (09:40→21:32)
[2023-02-05] MEDS: FAMOTIDINE 20 MG/50 ML IVPB 20 MG/50 ML MG IVPB SCH (09:40)
[2023-02-05 10:29] LABS: BLOOD UREA NITROGEN 24.8 mg/dL (7-18); CALCIUM 8.8 mg/dL (8.5-10.1); MAGNESIUM 2.5 mg/dL (1.8-2.4)
[2023-02-05 10:30] LABS: ALBUMIN 2.9 g/dl (3.4-5.0)
[2023-02-05 10:33] LABS: CREATININE 1.3 mg/dL (0.55-1.3)
[2023-02-05 10:34] LABS: BILIRUBIN,TOTAL 0.5 mg/dL (0.2-1)
[2023-02-05] MEDS: FUROSEMIDE 40 MG/4 ML INJECTABLE VIAL IVPUSH SCH ×2 (10:51→21:31)
[2023-02-05] MEDS ORDERED: FUROSEMIDE 40 MG/4 ML INJECTABLE VIAL ONE (15:54)
[2023-02-05 16:23] LABS: ARTERIAL BLD GAS O2 SATURATION 97.3 % (95-98); ARTERIAL BLOOD GAS BASE EXCESS 1.7 mmol/L (-2-2); ARTERIAL BLOOD GAS PO2 100.3 mmHg (80-100); ARTERIAL BLOOD GAS pH 7.361 (7.350-7.450)
[2023-02-05 16:28] LABS: ALLENS TEST POSITIVE
[2023-02-05] MEDS ORDERED: FUROSEMIDE 40 MG/4 ML INJECTABLE VIAL IVPUSH ONE (16:48)
[2023-02-05] MEDS: ROSUVASTATIN CA 20 MG TABLET PO SCH (21:32)
[2023-02-05] MEDS ORDERED: INSULIN (NOVOLOG) ASPART 100 UNITS/ML 10ML VIAL ONE (22:22)
[2023-02-06] MEDS: hydrALAZINE HCL 50 MG TABLET (FP) PO SCH ×3 (07:00→21:41)
[2023-02-06] MEDS: INSULIN SLIDING SCALE (NOVOLOG) 1 VIAL SQ SCH ×3 (07:02→16:54)
[2023-02-06] MEDS: INSULIN (LEVEMIR) 100 UNITS/ML UNITS SQ SCH ×2 (07:02→21:57)
[2023-02-06] MEDS: ALBUTEROL SO4 2.5/IPRATROPIUM 0.5 INH SOL 3 ML VIAL.NEB. NEB SCH ×4 (07:50→21:03)
[2023-02-06 08:30] LABS: BASO % 0.5 % (0-2.0); EOS % 1.1 % (0-4.5); HEMATOCRIT 30.3 % (32.4-45.2); HEMOGLOBIN 9.3 GM/dL (10.7-15.3); MCH 24.7 pg (25.7-33.7); MCHC 30.9 g/dl (32.0-36.0); MONO % 9.8 % (3.8-10.2); NEUT % 78.6 % (42.8-82.8); PLATELET COUNT 360 10^3/uL (134-434); RBC 3.78 M/mm3 (3.60-5.2); RDW 15.5 % (11.6-15.6); WHITE BLOOD COUNT 12.2 K/mm3 (4.0-10.0)
[2023-02-06 09:17] LABS: POTASSIUM 4.6 mmol/L (3.5-5.1)
[2023-02-06 09:25] LABS: CALCIUM 8.5 mg/dL (8.5-10.1)
[2023-02-06 09:27] LABS: ALBUMIN 2.5 g/dl (3.4-5.0)
[2023-02-06 09:28] LABS: BLOOD UREA NITROGEN 26.6 mg/dL (7-18); MAGNESIUM 2.4 mg/dL (1.8-2.4)
[2023-02-06 09:30] LABS: BILIRUBIN,TOTAL 0.5 mg/dL (0.2-1)
[2023-02-06 09:31] LABS: CREATININE 1.3 mg/dL (0.55-1.3); PHOSPHOROUS 3.5 mg/dL (2.5-4.9)
[2023-02-06 09:33] LABS: TOT PROT 6.9 g/dl (6.4-8.2)
[2023-02-06] MEDS: FUROSEMIDE 40 MG/4 ML INJECTABLE VIAL IVPUSH SCH ×2 (10:57→21:41)
[2023-02-06] MEDS: ENOXAPARIN NA (PORCINE) 40 MG/0.4 ML DISP.SYRIN SQ SCH ×2 (10:58→21:41)
[2023-02-06] MEDS: amLODIPine BESYLATE 10 MG TABLET (FP) PO SCH (10:58)
[2023-02-06] MEDS: POLYETHYLENE GLYCOL (HEALTHYLAX) 3350 17 GM PACKET PO SCH ×3 (10:58→21:41)
[2023-02-06] MEDS: ASPIRIN 81 MG CHEWABLE TABLETS PO SCH (10:58)
[2023-02-06] MEDS: SODIUM ZIRCONIUM CYCLOSILICATE (LOKELMA) 5 GM PACKET PO SCH (10:58)
[2023-02-06] MEDS: FAMOTIDINE 20 MG/50 ML IVPB 20 MG/50 ML MG IVPB SCH (10:58)
[2023-02-06] MEDS: RANOLAZINE E.R. 500 MG TABLET (FP) PO SCH ×2 (10:58→21:41)
[2023-02-06] MEDS: ROSUVASTATIN CA 20 MG TABLET PO SCH (21:41)
[2023-02-07] MEDS: hydrALAZINE HCL 50 MG TABLET (FP) PO SCH ×3 (06:32→22:07)
[2023-02-07] MEDS: INSULIN (LEVEMIR) 100 UNITS/ML UNITS SQ SCH ×2 (06:32→22:06)
[2023-02-07] MEDS: INSULIN SLIDING SCALE (NOVOLOG) 1 VIAL SQ SCH ×3 (06:33→16:26)
[2023-02-07] MEDS: ALBUTEROL SO4 2.5/IPRATROPIUM 0.5 INH SOL 3 ML VIAL.NEB. NEB SCH ×4 (08:09→20:22)
[2023-02-07 08:28] LABS: BASO % 0.8 % (0-2.0); EOS % 0.9 % (0-4.5); HEMATOCRIT 30.5 % (32.4-45.2); HEMOGLOBIN 9.3 GM/dL (10.7-15.3); LYMPH % 9.7 % (8-40); MCH 24.3 pg (25.7-33.7); MCHC 30.5 g/dl (32.0-36.0); MEAN CELL VOLUME 79.7 fl (80-96); MEAN PLT VOLUME 7.8 fl (7.5-11.1); MONO % 8.5 % (3.8-10.2); NEUT % 80.1 % (42.8-82.8); PLATELET COUNT 394 10^3/uL (134-434); RBC 3.83 M/mm3 (3.60-5.2); RDW 15.6 % (11.6-15.6); WHITE BLOOD COUNT 12.2 K/mm3 (4.0-10.0)
[2023-02-07 08:49] LABS: POTASSIUM 5.1 mmol/L (3.5-5.1)
[2023-02-07 09:00] LABS: BLOOD UREA NITROGEN 24.1 mg/dL (7-18); CALCIUM 8.5 mg/dL (8.5-10.1)
[2023-02-07 09:03] LABS: CREATININE 1.3 mg/dL (0.55-1.3)
[2023-02-07] MEDS: FUROSEMIDE 40 MG/4 ML INJECTABLE VIAL IVPUSH SCH ×2 (10:05→22:07)
[2023-02-07] MEDS: POLYETHYLENE GLYCOL (HEALTHYLAX) 3350 17 GM PACKET PO SCH ×2 (10:05→22:09)
[2023-02-07] MEDS: ASPIRIN 81 MG CHEWABLE TABLETS PO SCH (10:05)
[2023-02-07] MEDS: amLODIPine BESYLATE 10 MG TABLET (FP) PO SCH (10:05)
[2023-02-07] MEDS: ENOXAPARIN NA (PORCINE) 40 MG/0.4 ML DISP.SYRIN SQ SCH ×2 (10:05→22:08)
[2023-02-07] MEDS: RANOLAZINE E.R. 500 MG TABLET (FP) PO SCH ×2 (10:06→22:07)
[2023-02-07] MEDS: ACETAMINOPHEN 325 MG TABLET (FP) PO PRN (18:45)
[2023-02-07] MEDS: ROSUVASTATIN CA 20 MG TABLET PO SCH (22:08)
[2023-02-08] MEDS: hydrALAZINE HCL 50 MG TABLET (FP) PO SCH ×4 (06:12→22:03)
[2023-02-08] MEDS: INSULIN (LEVEMIR) 100 UNITS/ML UNITS SQ SCH ×3 (06:15→22:03)
[2023-02-08] MEDS: INSULIN SLIDING SCALE (NOVOLOG) 1 VIAL SQ SCH ×3 (06:16→17:31)
[2023-02-08 07:45] LABS: HEMATOCRIT 31.7 % (32.4-45.2); HEMOGLOBIN 9.8 GM/dL (10.7-15.3); MCH 24.6 pg (25.7-33.7); MCHC 30.9 g/dl (32.0-36.0); MEAN CELL VOLUME 79.4 fl (80-96); MEAN PLT VOLUME 7.2 fl (7.5-11.1); PLATELET COUNT 436 10^3/uL (134-434); RDW 15.6 % (11.6-15.6); WHITE BLOOD COUNT 11.9 K/mm3 (4.0-10.0)
[2023-02-08 08:09] LABS: POTASSIUM 4.6 mmol/L (3.5-5.1)
[2023-02-08 08:15] LABS: BLOOD UREA NITROGEN 23.1 mg/dL (7-18); CALCIUM 8.8 mg/dL (8.5-10.1)
[2023-02-08 08:16] LABS: MAGNESIUM 2.3 mg/dL (1.8-2.4)
[2023-02-08 08:19] LABS: CREATININE 1.2 mg/dL (0.55-1.3)
[2023-02-08] MEDS: ALBUTEROL SO4 2.5/IPRATROPIUM 0.5 INH SOL 3 ML VIAL.NEB. NEB SCH (08:50)
[2023-02-08] MEDS: FUROSEMIDE 40 MG/4 ML INJECTABLE VIAL IVPUSH SCH ×3 (10:00→22:03)
[2023-02-08] MEDS: ENOXAPARIN NA (PORCINE) 40 MG/0.4 ML DISP.SYRIN SQ SCH ×3 (10:00→22:03)
[2023-02-08] MEDS: ASPIRIN 81 MG CHEWABLE TABLETS PO SCH (10:01)
[2023-02-08] MEDS: RANOLAZINE E.R. 500 MG TABLET (FP) PO SCH ×3 (10:01→22:03)
[2023-02-08] MEDS: POLYETHYLENE GLYCOL (HEALTHYLAX) 3350 17 GM PACKET PO SCH ×3 (10:01→22:03)
[2023-02-08] MEDS: amLODIPine BESYLATE 10 MG TABLET (FP) PO SCH (10:01)
[2023-02-08] MEDS ORDERED: ALBUTEROL SO4 2.5/IPRATROPIUM 0.5 INH SOL 3 ML VIAL.NEB. NEB PRN (10:42)
[2023-02-08] MEDS ORDERED: INSULIN (NOVOLOG) ASPART 100 UNITS/ML 10ML VIAL ONE ×2 (12:06→17:30)
[2023-02-08] MEDS ORDERED: ALBUTEROL SO4 2.5/IPRATROPIUM 0.5 INH SOL 3 ML VIAL.NEB. NEB ONE (20:40)
[2023-02-08] MEDS: ROSUVASTATIN CA 20 MG TABLET PO SCH ×2 (22:00→22:03)
[2023-02-09] MEDS ORDERED: INSULIN (NOVOLOG) ASPART 100 UNITS/ML 10ML VIAL ONE ×3 (06:56→16:40)
[2023-02-09] MEDS: hydrALAZINE HCL 50 MG TABLET (FP) PO SCH ×3 (06:57→22:37)
[2023-02-09] MEDS: INSULIN SLIDING SCALE (NOVOLOG) 1 VIAL SQ SCH ×3 (06:58→16:45)
[2023-02-09] MEDS: INSULIN (LEVEMIR) 100 UNITS/ML UNITS SQ SCH ×2 (06:58→22:37)
[2023-02-09 08:10] LABS: BASO % 0.6 % (0-2.0); EOS % 2.5 % (0-4.5); HEMATOCRIT 31.1 % (32.4-45.2); HEMOGLOBIN 9.7 GM/dL (10.7-15.3); LYMPH % 12.1 % (8-40); MCH 24.9 pg (25.7-33.7); MCHC 31.3 g/dl (32.0-36.0); MEAN CELL VOLUME 79.6 fl (80-96); MEAN PLT VOLUME 7.3 fl (7.5-11.1); MONO % 8.9 % (3.8-10.2); NEUT % 75.9 % (42.8-82.8); PLATELET COUNT 426 10^3/uL (134-434); RDW 15.3 % (11.6-15.6); WHITE BLOOD COUNT 10.4 K/mm3 (4.0-10.0)
[2023-02-09 08:36] LABS: POTASSIUM 4.4 mmol/L (3.5-5.1)
[2023-02-09 08:39] LABS: BLOOD UREA NITROGEN 18.1 mg/dL (7-18); CALCIUM 8.6 mg/dL (8.5-10.1); MAGNESIUM 2.1 mg/dL (1.8-2.4)
[2023-02-09] MEDS: ENOXAPARIN NA (PORCINE) 40 MG/0.4 ML DISP.SYRIN SQ SCH ×3 (09:16→22:37)
[2023-02-09] MEDS: FUROSEMIDE 40 MG/4 ML INJECTABLE VIAL IVPUSH SCH ×3 (09:16→22:37)
[2023-02-09] MEDS: ASPIRIN 81 MG CHEWABLE TABLETS PO SCH ×2 (09:17→11:58)
[2023-02-09] MEDS: RANOLAZINE E.R. 500 MG TABLET (FP) PO SCH ×3 (09:17→22:37)
[2023-02-09] MEDS: amLODIPine BESYLATE 10 MG TABLET (FP) PO SCH ×2 (09:17→11:58)
[2023-02-09] MEDS: POLYETHYLENE GLYCOL (HEALTHYLAX) 3350 17 GM PACKET PO SCH ×2 (09:18→22:37)
[2023-02-09] MEDS: ROSUVASTATIN CA 20 MG TABLET PO SCH (22:37)
[2023-02-10] MEDS: ACETAMINOPHEN 325 MG TABLET (FP) PO PRN (00:41)
[2023-02-10] MEDS ORDERED: INSULIN (NOVOLOG) ASPART 100 UNITS/ML 10ML VIAL ONE (06:09)
[2023-02-10] MEDS: INSULIN SLIDING SCALE (NOVOLOG) 1 VIAL SQ SCH ×3 (06:17→16:47)
[2023-02-10] MEDS: hydrALAZINE HCL 50 MG TABLET (FP) PO SCH ×2 (06:17→14:37)
[2023-02-10] MEDS: INSULIN (LEVEMIR) 100 UNITS/ML UNITS SQ SCH (06:19)
[2023-02-10 07:23] LABS: BASO % 0.7 % (0-2.0); EOS % 4.4 % (0-4.5); HEMATOCRIT 31.5 % (32.4-45.2); HEMOGLOBIN 9.9 GM/dL (10.7-15.3); LYMPH % 17.9 % (8-40); MCH 24.4 pg (25.7-33.7); MCHC 31.4 g/dl (32.0-36.0); MEAN CELL VOLUME 77.7 fl (80-96); MEAN PLT VOLUME 6.7 fl (7.5-11.1); MONO % 9.4 % (3.8-10.2); NEUT % 67.6 % (42.8-82.8); PLATELET COUNT 449 10^3/uL (134-434); RBC 4.05 M/mm3 (3.60-5.2); RDW 15.4 % (11.6-15.6)
[2023-02-10 07:45] LABS: POTASSIUM 4.7 mmol/L (3.5-5.1)
[2023-02-10 07:51] LABS: ALBUMIN 2.3 g/dl (3.4-5.0); BLOOD UREA NITROGEN 27.1 mg/dL (7-18); CALCIUM 8.4 mg/dL (8.5-10.1); MAGNESIUM 2.2 mg/dL (1.8-2.4)
[2023-02-10 07:55] LABS: BILIRUBIN,TOTAL 0.7 mg/dL (0.2-1); CREATININE 1.3 mg/dL (0.55-1.3)
[2023-02-10] MEDS: ASPIRIN 81 MG CHEWABLE TABLETS PO SCH (10:09)
[2023-02-10] MEDS: POLYETHYLENE GLYCOL (HEALTHYLAX) 3350 17 GM PACKET PO SCH (10:09)
[2023-02-10] MEDS: amLODIPine BESYLATE 10 MG TABLET (FP) PO SCH (10:09)
[2023-02-10] MEDS: RANOLAZINE E.R. 500 MG TABLET (FP) PO SCH (10:09)
[2023-02-10] MEDS: FUROSEMIDE 40 MG/4 ML INJECTABLE VIAL IVPUSH SCH (10:09)
[2023-02-10] MEDS: ENOXAPARIN NA (PORCINE) 40 MG/0.4 ML DISP.SYRIN SQ SCH (10:09)
[2023-02-10 14:55] VITALS: PULSE 78; RESP 20
[2023-02-10 18:54] VITALS: BP 113/44; TEMP 98.8
== END 2023-02-10 18:54 | disposition home or self-care (01) | DRG 689 ==
LOC: JER 08:14 → JERBED 11:00 → J4W 11:41 → OBSVTOIN 01-28 13:04 → J7W 01-29 17:56 → J4W 02-04 18:53
PROVIDERS: ADMIT Internal Medicine; ATTEND Internal Medicine
DX: N39.0 Urinary tract infection, site not specified (principal); I50.33 Acute on chronic diastolic (congestive) heart failure; J96.02 Acute respiratory failure with hypercapnia; Z68.43 Body mass index [BMI] 50.0-59.9, adult; Z68.42 Body mass index [BMI] 45.0-49.9, adult; N17.9 Acute kidney failure, unspecified; I11.0 Hypertensive heart disease with heart failure; E66.01 Morbid (severe) obesity due to excess calories; E78.5 Hyperlipidemia, unspecified; E11.21 Type 2 diabetes mellitus with diabetic nephropathy; R07.89 Other chest pain; K21.9 Gastro-esophageal reflux disease without esophagitis; B96.1 Klebsiella pneumoniae [K. pneumoniae] as the cause of diseases classified elsewhere
CPT/HCPCS: 0241U-QW; 36415; 36600; 71045-TC-FY; 71275-TC; 76705-TC; 76775-TC; 76856-TC; 80048; 80053; 80307; 81003; 82308; 82803; 82962; 83036; 83605; 83690; 83735; 83880; 84100; 84443; 84484; 85025; 85027; 85610; 85730; 87086; 87186; 87635; 87899; 93005; 93010; 93306-TC; 94010; 94640; 94660; 94761; 97116-GP; 97162-GP; 99285-25; G0378; Q9967